=== PATIENT | male | born 1940 | race African-American/Black ===

== ENCOUNTER 2016-09-11 19:12 | Inpatient (IN) | payer MEDICARE, BC, OTHER ==
[2016-09-11] VITALS (144 sets, daily range): BP systolic 172; BP diastolic 77; PULSE 74; TEMP 97.1; O2SAT 89–97
[~2016-09-11] VITALS: Ht 172.7 cm; Wt 91.8 kg
[2016-09-11 19:46] LABS: BASO % 0.3 % (0.0-2.0); EOS # 0.1 (0.0-0.7); EOS % 1.9 % (0-4.0); GRAN # 4.8 (1.4-6.5); LYMPH # 1.7 (1.2-3.4); LYMPH % 22.7 % (20.0-51.0); MEAN CELL VOLUME 84 fl (80.0-100.0); MEAN CORPUSCULAR HGB CONC 32 g/dl (33.0-37.0); MEAN PLATELET VOLUME 11.3 fl (7.4-10.4); MONO # 0.7 (0.1-0.6); MONO % 9.1 % (1.7-9.3); PLATELET COUNT 190 K/mm3 (130-400); RED BLOOD COUNT 3.65 M/mm3 (4.20-5.60); REDCELL DISTRIBUTION WIDTH-CV 16.3 % (11.5-14.5); WHITE BLOOD COUNT 7.4 K/mm3 (4.8-10.8)
[2016-09-11 19:54] LABS: HEMATOCRIT 30.8 % (42.0-52.0); HEMOGLOBIN 9.9 g/dl (13.5-18.0); MEAN CORPUSCULAR HEMOGLOBIN 27 pg (27.0-31.0)
[2016-09-11 20:01] LABS: ADJUSTED CALCIUM 7.6 mg/dL (8.4-10.2); ALBUMIN 4.2 gm/dL (3.5-5.0); BILIRUBIN,TOTAL 0.7 mg/dL (0.0-1.0); CALCIUM 7.8 mg/dL (8.4-10.2); MAGNESIUM 1.6 mg/dL (1.6-2.3); PHOSPHOROUS 8.8 mg/dL (2.5-4.5); TOTAL PROTEIN 7.3 gm/dL (6.4-8.2)
[2016-09-11 20:05] LABS: POTASSIUM 6.2 mmol/L (3.4-5.0)
[2016-09-11 20:07] LABS: CREATININE, serum 15.01 mg/dL (0.66-1.25)
[2016-09-11] MEDS ORDERED: ZYLOPRIM 300MG300 MG PO (20:49)
[2016-09-11] MEDS ORDERED: ASPIRIN 32325 MG/TAB PO (20:50)
[2016-09-11] MEDS ORDERED: TENORMIN 5050 MG/TAB PO (20:50)
[2016-09-11] MEDS ORDERED: LIPITOR 40MG TA40 MG PO (20:51)
[2016-09-11] MEDS ORDERED: NEURONTIN100 MG/CAP PO (20:54)
[2016-09-11] MEDS ORDERED: LEVEMIR100 U/ML SQ (20:55)
[2016-09-11] MEDS ORDERED: LASIX 40MG TABL40 MG PO (20:56)
[2016-09-11] MEDS ORDERED: PROTONIX20 MG PO (20:56)
[2016-09-11] MEDS ORDERED: MINOXIDIL 2.5 PO (20:56)
[2016-09-11] MEDS ORDERED: PLAVIX 75MG TAB75 MG PO (20:57)
[2016-09-11] MEDS ORDERED: SENSIPAR60 MG PO (20:57)
[2016-09-12] VITALS (95 sets, daily range): BP systolic 109–143; BP diastolic 50–60; PULSE 62–72; TEMP 97–98.7; O2SAT 94–98
[2016-09-12 08:15] LABS: BASO % 0.4 % (0.0-2.0); EOS # 0.2 (0.0-0.7); EOS % 3.3 % (0-4.0); GRAN # 3.2 (1.4-6.5); GRAN % 61.7 % (42.2-75.2); LYMPH # 1.2 (1.2-3.4); LYMPH % 23.3 % (20.0-51.0); MEAN CELL VOLUME 86 fl (80.0-100.0); MEAN CORPUSCULAR HGB CONC 31 g/dl (33.0-37.0); MEAN PLATELET VOLUME 10.2 fl (7.4-10.4); MONO # 0.6 (0.1-0.6); MONO % 10.7 % (1.7-9.3); PLATELET COUNT 164 K/mm3 (130-400); RED BLOOD COUNT 3.68 M/mm3 (4.20-5.60); REDCELL DISTRIBUTION WIDTH-CV 16.6 % (11.5-14.5); WHITE BLOOD COUNT 5.2 K/mm3 (4.8-10.8)
[2016-09-12 08:24] LABS: CALCIUM 8.2 mg/dL (8.4-10.2); POTASSIUM 4.7 mmol/L (3.4-5.0)
[2016-09-12 08:26] LABS: HEMATOCRIT 31.7 % (42.0-52.0); HEMOGLOBIN 9.8 g/dl (13.5-18.0); MEAN CORPUSCULAR HEMOGLOBIN 27 pg (27.0-31.0)
[2016-09-12 08:35] LABS: CREATININE, serum 9.37 mg/dL (0.66-1.25)
== END 2016-09-12 13:30 | disposition home or self-care (01) | DRG 640 ==
LOC: COL.ER 19:12 → ICU 20:15 → MEDICAL 09-12 01:23
PROVIDERS: Emergency Medicine; Internal Medicine
PROC: 5A1D00Z (ICD-10-PCS; principal; 2016-09-11)
DX: E87.70 Fluid overload, unspecified (principal); N18.6 End stage renal disease; I12.0 Hypertensive chronic kidney disease with stage 5 chronic kidney disease or end stage renal disease; N25.81 Secondary hyperparathyroidism of renal origin; E87.5 Hyperkalemia; E11.22 Type 2 diabetes mellitus with diabetic chronic kidney disease; K21.9 Gastro-esophageal reflux disease without esophagitis; R19.7 Diarrhea, unspecified; Z99.2 Dependence on renal dialysis; Z79.4 Long term (current) use of insulin; Z87.891 Personal history of nicotine dependence; Z91.15 Patient's noncompliance with renal dialysis
CPT/HCPCS: J0610; J1644; J1815; J1940

== ENCOUNTER 2016-09-20 10:00 | Day surgery (SDC) | payer MEDICARE, OTHER ==
[~2016-09-20] VITALS: Ht 172.7 cm; Wt 88.6 kg
[2016-09-20] VITALS (12 sets, daily range): BP systolic 135–149; BP diastolic 56–73; PULSE 56–63
[~2016-09-20 10:00] MED LIST: ASPIRIN 32325 MG/TAB PO; LASIX 40MG TABL40 MG PO; LEVEMIR100 U/ML SQ; LIPITOR 40MG TA40 MG PO; MINOXIDIL 2.5 PO; NEURONTIN100 MG/CAP PO; PLAVIX 75MG TAB75 MG PO; PROTONIX20 MG PO; SENSIPAR60 MG PO; TENORMIN 5050 MG/TAB PO; ZYLOPRIM 300MG300 MG PO
[2016-09-20 10:34] LABS: MEAN CELL VOLUME 86 fl (80.0-100.0); MEAN CORPUSCULAR HGB CONC 31 g/dl (33.0-37.0); MEAN PLATELET VOLUME 10.4 fl (7.4-10.4); PLATELET COUNT 196 K/mm3 (130-400); RED BLOOD COUNT 4.08 M/mm3 (4.20-5.60); REDCELL DISTRIBUTION WIDTH-CV 16.2 % (11.5-14.5); WHITE BLOOD COUNT 8.9 K/mm3 (4.8-10.8)
[2016-09-20 10:38] LABS: HEMOGLOBIN 10.9 g/dl (13.5-18.0); MEAN CORPUSCULAR HEMOGLOBIN 27 pg (27.0-31.0)
[2016-09-20 10:44] LABS: PROTHROMBIN TIME 11.5 SECONDS (9.7-12.8)
[2016-09-20 10:45] LABS: CALCIUM 8.4 mg/dL (8.4-10.2); POTASSIUM 4.6 mmol/L (3.4-5.0)
[2016-09-20 10:49] LABS: CREATININE, serum 12.6 mg/dL (0.66-1.25)
[2016-09-20] MEDS ORDERED: LANTUS SOLOS100 U/ML SQ (11:59)
== END 2016-09-20 17:53 | disposition home or self-care (01) ==
LOC: COL.CAR 10:00
PROVIDERS: Internal Medicine Cardiovascular Disease
DX: I25.10 Atherosclerotic heart disease of native coronary artery without angina pectoris (principal); I27.2 Other secondary pulmonary hypertension; I08.3 Combined rheumatic disorders of mitral, aortic and tricuspid valves; Z99.2 Dependence on renal dialysis
CPT/HCPCS: C1725; C1760; J2250; J3010; Q9967

== ENCOUNTER 2016-09-20 22:38 | Emergency (ER) | payer MEDICARE, OTHER ==
[~2016-09-20] VITALS: Ht 172.7 cm; Wt 88.6 kg
[~2016-09-20 22:38] MED LIST changes: +LANTUS SOLOS100 U/ML SQ
[2016-09-20 22:48] VITALS: BP 129/69; TEMP 98.1
[2016-09-20 23:56] VITALS: PULSE 60
== END 2016-09-20 23:58 | disposition home or self-care (01) ==
LOC: COL.ER 22:38
DX: I97.610 Postprocedural hemorrhage of a circulatory system organ or structure following a cardiac catheterization (principal); E11.40 Type 2 diabetes mellitus with diabetic neuropathy, unspecified; I10 Essential (primary) hypertension; Z79.4 Long term (current) use of insulin; Z79.02 Long term (current) use of antithrombotics/antiplatelets; Z86.39 Personal history of other endocrine, nutritional and metabolic disease

== ENCOUNTER 2016-10-27 22:36 | Inpatient (IN) | payer MEDICARE, OTHER ==
[~2016-10-27] VITALS: Ht 172.7 cm; Wt 90.1 kg
[2016-10-27 23:25] LABS: BASO % 0.1 % (0.0-2.0); EOS # 0.2 (0.0-0.7); EOS % 1.9 % (0-4.0); GRAN # 5.4 (1.4-6.5); GRAN % 68.1 % (42.2-75.2); LYMPH # 1.5 (1.2-3.4); LYMPH % 19.5 % (20.0-51.0); MEAN CELL VOLUME 86 fl (80.0-100.0); MEAN CORPUSCULAR HGB CONC 31 g/dl (33.0-37.0); MEAN PLATELET VOLUME 10.3 fl (7.4-10.4); MONO # 0.8 (0.1-0.6); MONO % 9.6 % (1.7-9.3); PLATELET COUNT 183 K/mm3 (130-400); RED BLOOD COUNT 4.12 M/mm3 (4.20-5.60); REDCELL DISTRIBUTION WIDTH-CV 16.8 % (11.5-14.5); WHITE BLOOD COUNT 7.9 K/mm3 (4.8-10.8)
[2016-10-27 23:26] LABS: HEMATOCRIT 35.5 % (42.0-52.0); HEMOGLOBIN 11.1 g/dl (13.5-18.0); MEAN CORPUSCULAR HEMOGLOBIN 27 pg (27.0-31.0)
[2016-10-27 23:34] LABS: ADJUSTED CALCIUM 9.1 mg/dL (8.4-10.2); ALBUMIN 4.3 gm/dL (3.5-5.0); BILIRUBIN,TOTAL 0.5 mg/dL (0.0-1.0); CALCIUM 9.3 mg/dL (8.4-10.2); MAGNESIUM 1.9 mg/dL (1.6-2.3); PHOSPHOROUS 5.8 mg/dL (2.5-4.5); POTASSIUM 5.5 mmol/L (3.4-5.0); TOTAL PROTEIN 7.6 gm/dL (6.4-8.2)
[2016-10-27] MEDS ORDERED: NATURAL C500 MG PO (23:46)
[2016-10-27 23:48] LABS: CREATININE, serum 12.03 mg/dL (0.66-1.25); TROPONIN-I 0.035 ng/mL (0.000-0.034)
[2016-10-28 02:17] VITALS: BP 111/44; PULSE 59; TEMP 97.9
[2016-10-28 04:30] VITALS: BP 108/51; PULSE 50; TEMP 97.4
[2016-10-28 07:57] VITALS: BP 119/47; PULSE 52; TEMP 97.7
[2016-10-28 12:40] VITALS: BP 108/49; PULSE 53; TEMP 98.3
[2016-10-28 16:37] VITALS: BP 109/39; PULSE 42; TEMP 97.3
[2016-10-28 20:16] VITALS: BP 116/41; PULSE 54; TEMP 98
[2016-10-29 00:20] VITALS: BP 94/56; PULSE 57; TEMP 98.4
[2016-10-29 03:40] VITALS: BP 106/44; PULSE 55; TEMP 98.2
[2016-10-29 07:14] LABS: ALBUMIN 4.1 gm/dL (3.5-5.0); CALCIUM 8.6 mg/dL (8.4-10.2); PHOSPHOROUS 6.8 mg/dL (2.5-4.5)
[2016-10-29 07:15] LABS: CREATININE, serum 9.5 mg/dL (0.66-1.25)
[2016-10-29 07:16] LABS: POTASSIUM 5.8 mmol/L (3.4-5.0)
[2016-10-29 07:49] VITALS: BP 120/49; PULSE 54; TEMP 97.5
[2016-10-29 13:04] VITALS: BP 116/50; PULSE 51; TEMP 97.4
[2016-10-29 15:32] VITALS: BP 117/49; PULSE 118; TEMP 98
[2016-10-29 20:22] VITALS: BP 104/43; PULSE 52; TEMP 98.4
[2016-10-30 00:31] VITALS: BP 106/39; PULSE 70; TEMP 98.7
[2016-10-30 04:25] VITALS: BP 105/40; PULSE 58; TEMP 98.1
[2016-10-30 07:42] LABS: ALBUMIN 3.9 gm/dL (3.5-5.0); CALCIUM 8.3 mg/dL (8.4-10.2); PHOSPHOROUS 6.5 mg/dL (2.5-4.5); POTASSIUM 5.5 mmol/L (3.4-5.0)
[2016-10-30 07:50] LABS: CREATININE, serum 8.79 mg/dL (0.66-1.25)
[2016-10-30 07:53] VITALS: BP 109/36; PULSE 57; TEMP 99.1
[2016-10-30 11:43] VITALS: BP 103/38; PULSE 51; TEMP 98.8
[2016-10-30 15:49] VITALS: BP 108/43; PULSE 55; TEMP 99.2
[2016-10-30 20:34] VITALS: BP 122/43; PULSE 55; TEMP 98.3
[2016-10-31 00:02] VITALS: BP 116/49; PULSE 55; TEMP 98.5
[2016-10-31 03:47] VITALS: BP 113/45; PULSE 59; TEMP 98.2
[2016-10-31 06:40] LABS: ALBUMIN 3.9 gm/dL (3.5-5.0); CALCIUM 7.9 mg/dL (8.4-10.2); PHOSPHOROUS 7.1 mg/dL (2.5-4.5)
[2016-10-31 06:54] LABS: CREATININE, serum 10.92 mg/dL (0.66-1.25); POTASSIUM 6.4 mmol/L (3.4-5.0)
[2016-10-31 07:21] VITALS: BP 103/45; PULSE 60; TEMP 98.3
[2016-10-31 12:33] VITALS: BP 114/43; PULSE 55; TEMP 98.3
== END 2016-10-31 13:15 | disposition home or self-care (01) | DRG 640 ==
LOC: COL.ER 22:36 → MEDICAL 10-28 00:29
PROVIDERS: Emergency Medicine; Internal Medicine Nephrology
PROC: 5A1D60Z (ICD-10-PCS; principal; 2016-10-28)
DX: E87.70 Fluid overload, unspecified (principal); N18.6 End stage renal disease; I12.0 Hypertensive chronic kidney disease with stage 5 chronic kidney disease or end stage renal disease; I20.9 Angina pectoris, unspecified; E87.5 Hyperkalemia; D63.1 Anemia in chronic kidney disease; E11.22 Type 2 diabetes mellitus with diabetic chronic kidney disease; Z99.2 Dependence on renal dialysis; I27.2 Other secondary pulmonary hypertension; Z79.4 Long term (current) use of insulin; Z87.891 Personal history of nicotine dependence
CPT/HCPCS: J0610; J1815; J1940

== ENCOUNTER 2016-11-23 14:11 | Emergency (ER) | payer MEDICARE, OTHER ==
[~2016-11-23] VITALS: Ht 172.7 cm; Wt 77.3 kg
[~2016-11-23 14:11] MED LIST changes: +NATURAL C500 MG PO
[2016-11-23 14:12] VITALS: BP 176/81; TEMP 97.8
[2016-11-23 15:10] VITALS: PULSE 68
== END 2016-11-23 15:10 | disposition home or self-care (01) ==
LOC: COL.ER 14:11
DX: S40.812A Abrasion of left upper arm, initial encounter (principal); E11.9 Type 2 diabetes mellitus without complications; I12.0 Hypertensive chronic kidney disease with stage 5 chronic kidney disease or end stage renal disease; N18.9 Chronic kidney disease, unspecified; Z99.2 Dependence on renal dialysis; Z79.82 Long term (current) use of aspirin; Z79.02 Long term (current) use of antithrombotics/antiplatelets; Z79.01 Long term (current) use of anticoagulants; X58.XXXA Exposure to other specified factors, initial encounter

== ENCOUNTER 2017-03-22 11:46 | Emergency (ER) | payer MEDICARE, OTHER ==
[~2017-03-22] VITALS: Ht 172.7 cm; Wt 78.2 kg
[2017-03-22 11:48] VITALS: TEMP 100.6
[2017-03-22] MEDS ORDERED: PHOS LO PO (12:21)
[2017-03-22 14:03] LABS: INFLUENZA A POSITIVE; INFLUENZA B NEGATIVE
[2017-03-22 14:06] LABS: BASO % 0.1 % (0.0-2.0); EOS % 0.3 % (0-4.0); GRAN # 5.2 (1.4-6.5); GRAN % 77.5 % (42.2-75.2); LYMPH # 0.5 (1.2-3.4); LYMPH % 6.7 % (20.0-51.0); MEAN CELL VOLUME 89 fl (80.0-100.0); MEAN CORPUSCULAR HGB CONC 32 g/dl (33.0-37.0); MEAN PLATELET VOLUME 11.3 fl (7.4-10.4); MONO % 15.1 % (1.7-9.3); PLATELET COUNT 171 K/mm3 (130-400); RED BLOOD COUNT 3.83 M/mm3 (4.20-5.60); WHITE BLOOD COUNT 6.7 K/mm3 (4.8-10.8)
[2017-03-22 14:07] LABS: HEMOGLOBIN 10.7 g/dl (13.5-18.0); MEAN CORPUSCULAR HEMOGLOBIN 28 pg (27.0-31.0)
[2017-03-22 15:04] LABS: ADJUSTED CALCIUM 8.5 mg/dL (8.4-10.2); BILIRUBIN,TOTAL 0.4 mg/dL (0.0-1.0); C-REACTIVE PROTEIN 1.6 mg/dL (0.0-0.9); CALCIUM 8.5 mg/dL (8.4-10.2); POTASSIUM 5.4 mmol/L (3.4-5.0); TOTAL PROTEIN 7.2 gm/dL (6.4-8.2)
[2017-03-22 15:13] LABS: TROPONIN-I 0.032 ng/mL (0.000-0.034)
[2017-03-22 15:15] LABS: CREATININE, serum 12.25 mg/dL (0.66-1.25)
[2017-03-22 16:30] VITALS: BP 124/75; PULSE 69
== END 2017-03-22 16:31 | disposition home or self-care (01) ==
LOC: COL.ER 11:46
PROVIDERS: Emergency Medicine
DX: J09.X2 Influenza due to identified novel influenza A virus with other respiratory manifestations (principal); E11.22 Type 2 diabetes mellitus with diabetic chronic kidney disease; I12.0 Hypertensive chronic kidney disease with stage 5 chronic kidney disease or end stage renal disease; N18.6 End stage renal disease; Z99.2 Dependence on renal dialysis; J44.9 Chronic obstructive pulmonary disease, unspecified; Z79.82 Long term (current) use of aspirin; Z79.02 Long term (current) use of antithrombotics/antiplatelets

== ENCOUNTER 2017-03-25 07:39 | Inpatient (IN) | payer MEDICARE, OTHER ==
[~2017-03-25] VITALS: Ht 172.7 cm; Wt 78.1 kg
[2017-03-25] VITALS (8 sets, daily range): BP systolic 117–127; BP diastolic 46–58; PULSE 69–72; TEMP 97.3–99.5; O2SAT 97–100
[~2017-03-25 07:39] MED LIST changes: +PHOS LO PO
[2017-03-25 08:43] LABS: BASO % 0.1 % (0.0-2.0); GRAN # 6.3 (1.4-6.5); GRAN % 76.3 % (42.2-75.2); LYMPH % 12.3 % (20.0-51.0); MEAN CELL VOLUME 88 fl (80.0-100.0); MEAN CORPUSCULAR HGB CONC 32 g/dl (33.0-37.0); MEAN PLATELET VOLUME 12.4 fl (7.4-10.4); MONO # 0.9 (0.1-0.6); MONO % 11.1 % (1.7-9.3); PLATELET COUNT 158 K/mm3 (130-400); RED BLOOD COUNT 3.88 M/mm3 (4.20-5.60); REDCELL DISTRIBUTION WIDTH-CV 14.7 % (11.5-14.5)
[2017-03-25 08:44] LABS: HEMATOCRIT 34.3 % (42.0-52.0); HEMOGLOBIN 10.8 g/dl (13.5-18.0); MEAN CORPUSCULAR HEMOGLOBIN 28 pg (27.0-31.0)
[2017-03-25 08:54] LABS: BILIRUBIN,TOTAL 0.4 mg/dL (0.0-1.0); CALCIUM 7.6 mg/dL (8.4-10.2); TOTAL PROTEIN 7.5 gm/dL (6.4-8.2)
[2017-03-25 08:58] LABS: POTASSIUM 6.4 mmol/L (3.4-5.0)
[2017-03-25 09:03] LABS: CREATININE, serum 17.92 mg/dL (0.66-1.25)
[2017-03-25 09:10] LABS: TROPONIN-I 0.063 ng/mL (0.000-0.034)
[2017-03-25] MEDS ORDERED: PHOS LO PO (11:01)
[2017-03-25] MEDS ORDERED: NEURONTIN100 MG/CAP PO (11:06)
[2017-03-25] MEDS ORDERED: ASPI325T6 PO (11:10)
[2017-03-25] MEDS ORDERED: VITAMIN C500 MG PO (11:17)
[2017-03-25 18:22] LABS: CALCIUM 8.2 mg/dL (8.4-10.2); POTASSIUM 4.7 mmol/L (3.4-5.0)
[2017-03-25 18:23] LABS: CREATININE, serum 10.68 mg/dL (0.66-1.25)
[2017-03-26 03:55] VITALS: BP 109/41; PULSE 78; TEMP 101.2
[2017-03-26 07:08] LABS: GRAN # 4.3 (1.4-6.5); LYMPH # 0.8 (1.2-3.4); LYMPH % 14.1 % (20.0-51.0); MEAN CELL VOLUME 88 fl (80.0-100.0); MEAN CORPUSCULAR HGB CONC 31 g/dl (33.0-37.0); MEAN PLATELET VOLUME 12.5 fl (7.4-10.4); MONO # 0.5 (0.1-0.6); MONO % 8.7 % (1.7-9.3); PLATELET COUNT 128 K/mm3 (130-400); RED BLOOD COUNT 3.52 M/mm3 (4.20-5.60); REDCELL DISTRIBUTION WIDTH-CV 14.7 % (11.5-14.5)
[2017-03-26 07:11] LABS: HEMOGLOBIN 9.7 g/dl (13.5-18.0); MEAN CORPUSCULAR HEMOGLOBIN 28 pg (27.0-31.0)
[2017-03-26 07:23] LABS: CALCIUM 8.3 mg/dL (8.4-10.2); MAGNESIUM 1.7 mg/dL (1.6-2.3); POTASSIUM 5.2 mmol/L (3.4-5.0)
[2017-03-26 07:27] LABS: CREATININE, serum 11.79 mg/dL (0.66-1.25)
[2017-03-26 07:30] LABS: TROPONIN-I 0.056 ng/mL (0.000-0.034)
[2017-03-26 09:07] VITALS: BP 116/51; PULSE 69; TEMP 99.2
[2017-03-26 12:31] VITALS: BP 128/53; PULSE 68; TEMP 98.3
[2017-03-26 15:59] VITALS: BP 107/53; PULSE 72; TEMP 99.1
[2017-03-26 20:04] VITALS: BP 121/52; PULSE 73; TEMP 99.2
[2017-03-27 00:03] VITALS: BP 102/38; PULSE 70; TEMP 98.8
[2017-03-27 03:13] VITALS: BP 110/46; PULSE 70; TEMP 98.4
[2017-03-27 07:46] VITALS: BP 116/46; PULSE 66; TEMP 98.7
[2017-03-27 10:38] LABS: ALBUMIN 3.6 gm/dL (3.5-5.0); PHOSPHOROUS 7.2 mg/dL (2.5-4.5); POTASSIUM 5.3 mmol/L (3.4-5.0)
[2017-03-27 10:45] LABS: CREATININE, serum 14.52 mg/dL (0.66-1.25)
[2017-03-27 12:32] VITALS: BP 136/60; PULSE 67; TEMP 99.2
[2017-03-27 16:30] VITALS: BP 136/52; PULSE 77; TEMP 98.9
[2017-03-27 20:21] VITALS: BP 135/55; PULSE 82; TEMP 99.5
[2017-03-28 00:07] VITALS: BP 149/62; PULSE 80; TEMP 98.2
[2017-03-28 04:56] VITALS: BP 119/57; PULSE 76; TEMP 98.5
[2017-03-28 09:20] VITALS: BP 126/47; PULSE 76; TEMP 99.2
== END 2017-03-28 12:00 | disposition home or self-care (01) | DRG 865 ==
LOC: COL.ER 07:39 → ICU 09:05 → MEDICAL 09:05
PROVIDERS: Emergency Medicine; Internal Medicine; Nurse Practitioner Family
PROC: 5A1D70Z Performance of Urinary Filtration, Intermittent, Less than 6 Hours Per Day (ICD-10-PCS; principal; 2017-03-25)
PROC: 5A1D70Z Performance of Urinary Filtration, Intermittent, Less than 6 Hours Per Day (ICD-10-PCS; 2017-03-27)
DX: J10.2 Influenza due to other identified influenza virus with gastrointestinal manifestations (principal); N18.6 End stage renal disease; J96.21 Acute and chronic respiratory failure with hypoxia; R65.11 Systemic inflammatory response syndrome (SIRS) of non-infectious origin with acute organ dysfunction; I13.2 Hypertensive heart and chronic kidney disease with heart failure and with stage 5 chronic kidney disease, or end stage renal disease; I50.32 Chronic diastolic (congestive) heart failure; N25.81 Secondary hyperparathyroidism of renal origin; J10.1 Influenza due to other identified influenza virus with other respiratory manifestations; E11.22 Type 2 diabetes mellitus with diabetic chronic kidney disease; Z99.2 Dependence on renal dialysis; I27.20 Pulmonary hypertension, unspecified; E11.42 Type 2 diabetes mellitus with diabetic polyneuropathy; Z87.891 Personal history of nicotine dependence; I34.0 Nonrheumatic mitral (valve) insufficiency
CPT/HCPCS: 99223-AI; 99232-AI; 99233-AI; 99239; J0604; J1644; J1815; J2405

== ENCOUNTER → 2017-04-07 | Outpatient (CLI) | payer MEDICARE, OTHER ==
[~2017-04-07] MED LIST changes: +ASPI325T6 PO; +VITAMIN C500 MG PO
== END ==
LOC: COL.VAS 09:00
DX: I65.23 Occlusion and stenosis of bilateral carotid arteries (principal); H35.60 Retinal hemorrhage, unspecified eye; E11.39 Type 2 diabetes mellitus with other diabetic ophthalmic complication

== ENCOUNTER → 2017-12-06 | Outpatient (CLI) | payer MEDICARE, OTHER | LOC: COL.VAS 14:51 | DX: M70.22 Olecranon bursitis, left elbow (principal); R60.0 Localized edema; I77.0 Arteriovenous fistula, acquired ==

== ENCOUNTER → 2018-01-03 | Outpatient (CLI) | payer MEDICARE, OTHER ==
[~2018-01-03] VITALS: Ht 172.7 cm; Wt 85.2 kg
[~2018-01-03] MED LIST changes: +ASPIRIN E.C. 8181 MG PO; +MINOXIDIL 10 PO; +NORVASC 10MG10 MG PO; +RENVELA800 MG PO; +TENORMIN100 MG PO; +TRELEGY ELLIPT1 EACH IH
[2018-01-03 10:53] VITALS: BP 170/81; PULSE 58
[2018-01-03 12:15] VITALS: BP 166/79; PULSE 60
[2018-01-03 12:22] VITALS: BP 138/63; PULSE 79
[2018-01-03 12:23] VITALS: BP 142/68; PULSE 78
[2018-01-03 12:25] VITALS: BP 136/62; PULSE 62
== END ==
LOC: COL.CARD 10:37
DX: I25.10 Atherosclerotic heart disease of native coronary artery without angina pectoris (principal); I25.41 Coronary artery aneurysm; I13.2 Hypertensive heart and chronic kidney disease with heart failure and with stage 5 chronic kidney disease, or end stage renal disease; E11.22 Type 2 diabetes mellitus with diabetic chronic kidney disease; N18.6 End stage renal disease; I50.32 Chronic diastolic (congestive) heart failure; I08.1 Rheumatic disorders of both mitral and tricuspid valves; I27.20 Pulmonary hypertension, unspecified; N40.0 Benign prostatic hyperplasia without lower urinary tract symptoms; J44.9 Chronic obstructive pulmonary disease, unspecified; M10.9 Gout, unspecified; N52.9 Male erectile dysfunction, unspecified; I42.8 Other cardiomyopathies; E78.2 Mixed hyperlipidemia; E66.9 Obesity, unspecified; Z68.27 Body mass index [BMI] 27.0-27.9, adult; Z99.2 Dependence on renal dialysis; Z79.82 Long term (current) use of aspirin; Z87.891 Personal history of nicotine dependence; Z83.3 Family history of diabetes mellitus; Z82.49 Family history of ischemic heart disease and other diseases of the circulatory system; Z82.3 Family history of stroke
CPT/HCPCS: A9502; J2785

== ENCOUNTER 2018-04-02 10:53 | Inpatient (IN) | payer MEDICARE, OTHER ==
[2018-04-02] VITALS (392 sets, daily range): BP systolic 66–155; BP diastolic 27–72; PULSE 68–107; TEMP 98.3–101.7; O2SAT 80–100
[~2018-04-02] VITALS: Ht 172.7 cm; Wt 72.3 kg
[2018-04-02 12:02] LABS: HEMOGLOBIN 11.5 g/dl (13.5-18.0); MEAN CELL VOLUME 91 fl (80.0-100.0); MEAN CORPUSCULAR HEMOGLOBIN 28 pg (27.0-31.0); MEAN CORPUSCULAR HGB CONC 31 g/dl (33.0-37.0); MEAN PLATELET VOLUME 11.4 fl (7.4-10.4); PLATELET COUNT 202 K/mm3 (130-400); RED BLOOD COUNT 4.07 M/mm3 (4.20-5.60); REDCELL DISTRIBUTION WIDTH-CV 16.5 % (11.5-14.5)
[2018-04-02 12:11] LABS: ALBUMIN 3.5 gm/dL (3.5-5.0); BILIRUBIN,TOTAL 0.8 mg/dL (0.0-1.0); CALCIUM 9.1 mg/dL (8.4-10.2); MAGNESIUM 1.5 mg/dL (1.6-2.3); PHOSPHOROUS 3.3 mg/dL (2.5-4.5); POTASSIUM 5.2 mmol/L (3.4-5.0); TOTAL PROTEIN 6.9 gm/dL (6.4-8.2)
[2018-04-02 12:18] LABS: CREATININE, serum 10.54 mg/dL (0.66-1.25)
[2018-04-02 12:24] LABS: TROPONIN-I 0.057 ng/mL (0.000-0.034)
[2018-04-02] MEDS ORDERED: PHOS LO (13:40)
[2018-04-02] MEDS ORDERED: LIPITOR 40MG TA40 MG PO (13:41)
[2018-04-02] MEDS ORDERED: PRINIVIL10 MG PO (13:42)
--- NOTE | 2018-04-02 13:57 | NUR ---
PT INTUBATED WITH A #8.0 OETT SECURED 27CM@ LIP BY DR. ORTEGA. CONSISTANT COLOR CHANGE ON CO2 DETECTOR, BILATERAL BREATH SOUNDS AUSCULTATED AND ABSENCE OF SOUNDS OVER STOMACH AND CORDS WERE VISUALIZED BY DR. ORTEGA ON GLIDASCOPE MONITOR. PT PLACED ON VENTILATOR ON SETTINGS ORDERED BY DR. ORTEGA AT BEDSIDE. ALARMS SET/FUNCTIONING. CXR AND ABG PENDING.
[2018-04-02 14:06] LABS: ANISOCYTOSIS 1+; BAND 40 % (0-10); LYMPHOCYTE 10 % (20.0-51.0); NEUTROPHILS 46 % (42.0-75.2); PLATELET ESTIMATE NORMAL (NORMAL); TOXIC GRANULATION PRESENT
--- NOTE | 2018-04-02 14:10 | NUR ---
VT DECREASED TO 400 AND PEEP DECREASED TO +4 FOR APPROXIMATELY 5 MIN DURING WHICH TIME DR. ORTEGA WAS ATTEMPTING TO PLACE CENTRAL LINE. PT THEN PLACED BACK ON PREVIOUSLY DOCUMENTED SETTINGS.
--- NOTE | 2018-04-02 14:56 | NUR ---
1340 DR. ORTEGA AT BEDSIDE TO INTUBATE PATIENT. DAUGHTER AND PATIENT WERE TALKED TO AND PLAN OF CARE DISCUSSED. ALL QUESTIONS WERE ANSWERED 1359 8.0 ET TUBE PLACED. TOTAL OF 50 MG OF PROPOFOL WAS GIVEN, 10 MG ETOMIDATE, AND 10 MG OF VECUROMIUM. PATIENT WAS PLACED ON A LEVOPHED DRIP AND AN ADDITIONAL 250 ML NS FLUID BOLUS WAS GIVEN.
--- NOTE | 2018-04-02 14:58 | NUR ---
DR. ORTEGA ATTEMPTED A CENTRAL LINE PLACEMENT HOWEVER HE WAS NOT SUCCESSFUL. DR. GUARDADO NOTIFIED.
[2018-04-02 15:51] LABS: ARTERIAL BLD GAS O2 SATURATION 82.3 % (92-100); ARTERIAL BLD GAS TCO2 CT 29.3; ARTERIAL BLOOD GAS BASE EXCESS 3.8 (-2-2); ARTERIAL BLOOD GAS PCO2 40.9 mmHg (35-45); ARTERIAL BLOOD GAS pH 7.45 (7.35-7.45)
[2018-04-02 15:53] LABS: ARTERIAL BLOOD GAS PO2 44.2 mmHg (80-100)
[2018-04-02 16:14] LABS: HEMOGLOBIN 10.4 g/dl (13.5-18.0); MEAN CELL VOLUME 91 fl (80.0-100.0); MEAN CORPUSCULAR HEMOGLOBIN 29 pg (27.0-31.0); MEAN CORPUSCULAR HGB CONC 32 g/dl (33.0-37.0); MEAN PLATELET VOLUME 11.3 fl (7.4-10.4); PLATELET COUNT 240 K/mm3 (130-400); REDCELL DISTRIBUTION WIDTH-CV 16.3 % (11.5-14.5)
[2018-04-02 16:29] LABS: C-REACTIVE PROTEIN 7.4 mg/dL (0.0-0.9); CALCIUM 8.5 mg/dL (8.4-10.2); POTASSIUM 4.3 mmol/L (3.4-5.0)
[2018-04-02 16:30] LABS: HEMATOCRIT 32.8 % (42.0-52.0)
[2018-04-02 16:34] LABS: ANISOCYTOSIS 2+; BAND 31 % (0-10); EOSINOPHIL 3 % (0-4); LYMPHOCYTE 2 % (20.0-51.0); METAMYELOCYTE 2 % (0-0); NEUTROPHILS 52 % (42.0-75.2); NUCLEATED RED BLOOD CELL 1 (0-6); PLATELET ESTIMATE NORMAL (NORMAL); POIKILOCYTOSIS 1+
[2018-04-02 16:36] LABS: TOXIC GRANULATION PRESENT
[2018-04-02 16:38] LABS: CREATININE, serum 10.95 mg/dL (0.66-1.25)
--- NOTE | 2018-04-02 16:50 | NUR ---
WOLF WITH ANESTHESIA AT BEDSIDE TO PLACE ARTERIAL LINE.
--- NOTE | 2018-04-02 17:00 | NUR ---
SEDATION VACATION NOT DONE DUE TO PATIENT JUST BEING INTUBATED
[2018-04-02 17:30] LABS: ARTERIAL BLD GAS O2 SATURATION 93.4 % (92-100); ARTERIAL BLD GAS TCO2 CT 26.6; ARTERIAL BLOOD GAS BASE EXCESS -0.7 (-2-2); ARTERIAL BLOOD GAS HCO3 25.2 meq/L (22-26); ARTERIAL BLOOD GAS PCO2 46.8 mmHg (35-45); ARTERIAL BLOOD GAS PO2 76.1 mmHg (80-100); ARTERIAL BLOOD GAS pH 7.35 (7.35-7.45)
--- NOTE | 2018-04-02 19:30 | NUR ---
Bedside report received from KANDIS Robert. Patient care transfered. Patient sedated on ventilator. Family at bedside, all questions and concerns addressed at this time.
--- NOTE | 2018-04-02 19:30 | NUR ---
REPORT GIVEN TO KANDIS COHEN
--- NOTE | 2018-04-02 20:23 | NUR ---
Update Dr. Barahona via telephone regarding patient status. Received order to give 2 gm magnesium for mag of 1.5. Also received PRN order to bolus 500 ml NS if CVP still below 8. Currently at 15. will hold off on bolus.
[2018-04-02 22:24] LABS: COLLECTION METHOD CLEAN CATCH
[2018-04-02 22:29] LABS: MUCOUS Present /lpf; PH 8 (5-8); SQUAMOUS EPITHELIAL None Seen /hpf; URINE APPEARANCE Cloudy; URINE BACTERIA None Seen /hpf; URINE BILIRUBIN Negative (NEGATIVE); URINE BLOOD 2+ (NEGATIVE); URINE COLOR Yellow; URINE GLUCOSE Negative (NEGATIVE); URINE KETONE Negative (NEGATIVE); URINE LEUKOCYTE ESTERASE Negative (NEGATIVE); URINE NITRATE Negative (NEGATIVE); URINE PROTEIN(semi-quant) 2+ (NEGATIVE); URINE RBC 20-50 /hpf; URINE UROBILINOGEN Negative (NEGATIVE)
[2018-04-03] VITALS (766 sets, daily range): BP systolic 80–145; BP diastolic 40–70; PULSE 66–87; TEMP 97.3–99; O2SAT 72–100
--- NOTE | 2018-04-03 | NUR ---
Patient continues to be dependent on Levophed. BP is maintained on the drip but drops very quickly if drip is stopped for even a few seconds. Staff very carefull to not let drip run dry.
--- NOTE | 2018-04-03 | NUR ---
Urine in haywood catheter noted to be ludwig red. Catheter flushed with 10 ml of NS. Urine cleared up with flush. Will continue to monitor.
--- NOTE | 2018-04-03 02:45 | NUR ---
Called [facility] regarding patient elevated blood glucose with no insulin coverage. Received order to start moderate sliding scale insulin.
--- NOTE | 2018-04-03 04:30 | NUR ---
Bedbath provided. Patient opened eyes to speech and was able to squeeze this nurses hands on command and respond to simple yes or no questions appropriately. Will continue to monitor.
[2018-04-03 05:16] LABS: ARTERIAL BLD GAS O2 SATURATION 96.3 % (92-100); ARTERIAL BLD GAS TCO2 CT 23.7; ARTERIAL BLOOD GAS BASE EXCESS -7.3 (-2-2); ARTERIAL BLOOD GAS HCO3 21.8 meq/L (22-26); ARTERIAL BLOOD GAS PCO2 62.5 mmHg (35-45)
[2018-04-03 05:17] LABS: ARTERIAL BLOOD GAS pH 7.16 (7.35-7.45)
[2018-04-03 06:13] LABS: HEMOGLOBIN 10.1 g/dl (13.5-18.0); MEAN CELL VOLUME 93 fl (80.0-100.0); MEAN CORPUSCULAR HEMOGLOBIN 28 pg (27.0-31.0); MEAN CORPUSCULAR HGB CONC 30 g/dl (33.0-37.0); MEAN PLATELET VOLUME 10.8 fl (7.4-10.4); PLATELET COUNT 220 K/mm3 (130-400); RED BLOOD COUNT 3.61 M/mm3 (4.20-5.60); REDCELL DISTRIBUTION WIDTH-CV 16.5 % (11.5-14.5)
[2018-04-03 06:25] LABS: MAGNESIUM 2.1 mg/dL (1.6-2.3); PHOSPHOROUS 7.8 mg/dL (2.5-4.5); POTASSIUM 5.3 mmol/L (3.4-5.0)
[2018-04-03 06:43] LABS: CREATININE, serum 11.14 mg/dL (0.66-1.25); HEMATOCRIT 33.4 % (42.0-52.0)
--- NOTE | 2018-04-03 07:20 | NUR ---
Bedside report received from KANDIS He.
[2018-04-03 07:29] LABS: ANISOCYTOSIS 1+; BAND 49 % (0-10); LYMPHOCYTE 3 % (20.0-51.0); METAMYELOCYTE 2 % (0-0); NEUTROPHILS 45 % (42.0-75.2); PLATELET ESTIMATE NORMAL (NORMAL)
--- NOTE | 2018-04-03 07:42 | NUR ---
Vasopressin gtt decreased to 0.04 units=12ml/hr, and increased levophed gtt to 0.5mcg/kg/min=76.9ml/hr, we did DOUBLE STRENGTH the levophed at this time.
--- NOTE | 2018-04-03 08:00 | NUR ---
instructional technology specialist in room for ECHO.
--- NOTE | 2018-04-03 08:13 | NUR ---
Dr. Barahona speaks with family at this time.
[2018-04-03 08:27] LABS: ARTERIAL BLD GAS O2 SATURATION 95.4 % (92-100); ARTERIAL BLD GAS TCO2 CT 20.3; ARTERIAL BLOOD GAS BASE EXCESS -6.9 (-2-2); ARTERIAL BLOOD GAS HCO3 19.1 meq/L (22-26); ARTERIAL BLOOD GAS PCO2 40.2 mmHg (35-45); ARTERIAL BLOOD GAS PO2 85.9 mmHg (80-100)
--- NOTE | 2018-04-03 09:50 | NUR ---
Insulin gtt initiated at 5 units/hr, verified by KANDIS Stewart.
--- NOTE | 2018-04-03 11:00 | NUR ---
Insulin gtt increased to 6 units/hr, verified by KANDIS Stewart.
--- NOTE | 2018-04-03 11:15 | NUR ---
Dr. Barahona talks to family.
--- NOTE | 2018-04-03 12:00 | NUR ---
Insulin gtt increased to 7 units/hr, verified by KANDIS Gamez.
--- NOTE | 2018-04-03 12:48 | NUR ---
Watch sent home with daughter Temitope.
--- NOTE | 2018-04-03 14:00 | NUR ---
Insulin gtt decreased to 6 units/hr, verified by Yessenia.
--- NOTE | 2018-04-03 15:07 | NUR ---
Insulin gtt decreased to 3 units/hr, verified by KANDIS Stewart.
--- NOTE | 2018-04-03 16:00 | NUR ---
Insulin gtt decrease 1 unit/hr, verified by KANDIS Stewart.
--- NOTE | 2018-04-03 19:38 | NUR ---
Bedside report given to KANDIS Alonzo.
--- NOTE | 2018-04-03 20:00 | NUR ---
Shift assessment complete at this time. Plan of care reviewed with family. Additional time taken to address any other needs or concerns. Vitals stable. Pt does not appear to be having any pain or discomfort and is able to communicate with nods/gestures on ventilator. Will continue to monitor.
[2018-04-03 21:49] LABS: CALCIUM 7.9 mg/dL (8.4-10.2); MAGNESIUM 1.9 mg/dL (1.6-2.3); PHOSPHOROUS 8.3 mg/dL (2.5-4.5); POTASSIUM 4.6 mmol/L (3.4-5.0)
[2018-04-03 21:50] LABS: CREATININE, serum 11.2 mg/dL (0.66-1.25)
[2018-04-04] VITALS (797 sets, daily range): BP systolic 70–158; BP diastolic 49–89; PULSE 66–80; TEMP 97–98.8; O2SAT 95–100
--- NOTE | 2018-04-04 | NUR ---
Shift reassessment complete at this time. No changes from previous assessment. Vitals stable. Will continue to monitor.
--- NOTE | 2018-04-04 02:20 | NUR ---
Arterial line removed r/t failure of line. No complications during removal.
--- NOTE | 2018-04-04 04:00 | NUR ---
Shift reassessment complete at this time. No changes from previous assessment. Vitals stable. Will continue to monitor.
--- NOTE | 2018-04-04 05:00 | NUR ---
Pt calm et responsive on current level of sedation. No smart care cpap trial r/t high level of FiO2.
[2018-04-04 05:10] LABS: ARTERIAL BLD GAS O2 SATURATION 96.8 % (92-100); ARTERIAL BLD GAS TCO2 CT 18.9; ARTERIAL BLOOD GAS BASE EXCESS -8.1 (-2-2); ARTERIAL BLOOD GAS HCO3 17.7 meq/L (22-26); ARTERIAL BLOOD GAS PCO2 37.3 mmHg (35-45); ARTERIAL BLOOD GAS PO2 110.2 mmHg (80-100)
[2018-04-04 05:25] LABS: BASO # 0.1 (0.0-0.2); BASO % 0.3 % (0.0-2.0); GRAN # 17.7 (1.4-6.5); GRAN % 79.4 % (42.2-75.2); LYMPH # 0.3 (1.2-3.4); LYMPH % 1.5 % (20.0-51.0); MEAN CORPUSCULAR HGB CONC 33 g/dl (33.0-37.0); MEAN PLATELET VOLUME 10.1 fl (7.4-10.4); MONO # 0.6 (0.1-0.6); MONO % 2.6 % (1.7-9.3); PLATELET COUNT 162 K/mm3 (130-400); RED BLOOD COUNT 3.39 M/mm3 (4.20-5.60); REDCELL DISTRIBUTION WIDTH-CV 16.2 % (11.5-14.5)
[2018-04-04 05:48] LABS: CALCIUM 7.7 mg/dL (8.4-10.2); POTASSIUM 4.5 mmol/L (3.4-5.0)
[2018-04-04 05:58] LABS: CREATININE, serum 11.16 mg/dL (0.66-1.25); PHOSPHOROUS 9.3 mg/dL (2.5-4.5)
[2018-04-04 05:59] LABS: TROPONIN-I 0.213 ng/mL (0.000-0.034)
[2018-04-04 06:01] LABS: HEMATOCRIT 29.4 % (42.0-52.0); HEMOGLOBIN 9.6 g/dl (13.5-18.0); MEAN CELL VOLUME 87 fl (80.0-100.0); MEAN CORPUSCULAR HEMOGLOBIN 28 pg (27.0-31.0)
--- NOTE | 2018-04-04 07:00 | NUR ---
Bedside report received from KANDIS Alonzo. all Vent setttings, lines, tubes, iv gtts reviewed together. Patient repositioned at this time.
[2018-04-04 07:11] LABS: BAND 13 % (0-10); LYMPHOCYTE 3 % (20.0-51.0); METAMYELOCYTE 2 % (0-0); NEUTROPHILS 80 % (42.0-75.2); NUCLEATED RED BLOOD CELL 2 (0-6)
[2018-04-04 07:12] LABS: BURR CELLS 1+; PLATELET ESTIMATE DECREASED (NORMAL); POLYCHROMASIA 1+; SCHISTOCYTES 1+; TARGET CELLS 1+
[2018-04-04 07:13] LABS: DOHLE BODIES PRESENT
--- NOTE | 2018-04-04 07:37 | NUR ---
Bedside report given to KANDIS Castañeda.
--- NOTE | 2018-04-04 08:52 | NUR ---
Plan is dependent on patients progress in care. SW met with four daughters in room with pt. Daughter Eliza reports that pt has a at home Lara "Eloise" , Emergency contact is Eliza at [phone] and Seconday EMR contact is Temitope . PT is reported to use O2 at home and Cpap at night. No other DME reported. Patient was reported to be independent in daily activities prior to this stay and still working. Family reports PCP at Dr. Liao and the use of [facility] for RX. Family does not have a POA and reports that the decision is left to Eliza. No formal paperwork on file. There is also a son that they are waiting on to come in for decision purposes. SW will follow care for DC plan. Possible SNF.
--- NOTE | 2018-04-04 10:00 | NUR ---
Dr. Barahona has rounded, Dr. Lay rounds at this time and Dr. Dai rounds at this time. Orders received.
--- NOTE | 2018-04-04 12:00 | NUR ---
Have been able to wean patient down on levophed through the morning. He is tolerating it well. Will continue to attempts levophed decreases as blood pressure allows. CHEERLEADING COACH has been weaning down FiO2 to 50% as well. Family have all been updated on plan of care. will continue to monitor
--- NOTE | 2018-04-04 14:00 | NUR ---
RECEIVED PHONE CALL FROM LAB ([facility]) WITH REPORT OF POSITIVE MRSA SWAB RESULTS. PATIENT PLACED IN CONTACT PRECAUTIONS.
--- NOTE | 2018-04-04 15:00 | NUR ---
Patient continues to do well this afternoon. This RN and MUTUEL CLERK continue to attempt to wean Vent settings and Levophed. Will continue to monitor.
--- NOTE | 2018-04-04 17:00 | NUR ---
Dr. Dai rounds again at this time. Update given. He states that we may attempts Hemodialysis tomorrow, but he wants to evaluate patient tomorrow morning prior to making a final decision.
[2018-04-04 19:24] LABS: CALCIUM 7.5 mg/dL (8.4-10.2); MAGNESIUM 1.9 mg/dL (1.6-2.3); POTASSIUM 4.3 mmol/L (3.4-5.0)
[2018-04-04 19:30] LABS: ARTERIAL BLD GAS O2 SATURATION 96.1 % (92-100); ARTERIAL BLD GAS TCO2 CT 21.2; ARTERIAL BLOOD GAS BASE EXCESS -3.2 (-2-2); ARTERIAL BLOOD GAS HCO3 20.3 meq/L (22-26); ARTERIAL BLOOD GAS PCO2 30.5 mmHg (35-45); ARTERIAL BLOOD GAS PO2 95.2 mmHg (80-100); ARTERIAL BLOOD GAS pH 7.44 (7.35-7.45)
[2018-04-04 19:31] LABS: CREATININE, serum 11.01 mg/dL (0.66-1.25)
--- NOTE | 2018-04-04 20:00 | NUR ---
PEDAL PULSES ONLY ABLE TO BE IDENTIFIED WITH DOPLER, DIFFICULT TO FIND BY PALPATION. PT RESPONDS TO VERBAL COMMANDS.
[2018-04-05] VITALS (780 sets, daily range): BP systolic 86–131; BP diastolic 53–70; PULSE 76–111; TEMP 98.1–98.8; O2SAT 88–100
[2018-04-05 05:09] LABS: ARTERIAL BLD GAS O2 SATURATION 91.6 % (92-100); ARTERIAL BLD GAS TCO2 CT 24.2; ARTERIAL BLOOD GAS BASE EXCESS -0.7 (-2-2); ARTERIAL BLOOD GAS HCO3 23.2 meq/L (22-26); ARTERIAL BLOOD GAS PCO2 34.8 mmHg (35-45); ARTERIAL BLOOD GAS PO2 68.9 mmHg (80-100); ARTERIAL BLOOD GAS pH 7.44 (7.35-7.45)
--- NOTE | 2018-04-05 05:09 | NUR ---
SEDATION VACATION NOT ATTEMPTED DUE TO PT RESTLESS THE PAST 45 ON PROPOFOL AND THROUGHOUT NIGHT EASILY AROUSABLE WITH SEDATION.
[2018-04-05 05:35] LABS: MEAN CORPUSCULAR HGB CONC 35 g/dl (33.0-37.0); MEAN PLATELET VOLUME 11.1 fl (7.4-10.4); PLATELET COUNT 128 K/mm3 (130-400); RED BLOOD COUNT 2.81 M/mm3 (4.20-5.60); REDCELL DISTRIBUTION WIDTH-CV 15.3 % (11.5-14.5)
[2018-04-05 05:37] LABS: HEMATOCRIT 22.9 % (42.0-52.0); HEMOGLOBIN 8.1 g/dl (13.5-18.0); MEAN CELL VOLUME 82 fl (80.0-100.0); MEAN CORPUSCULAR HEMOGLOBIN 29 pg (27.0-31.0)
[2018-04-05 05:51] LABS: CALCIUM 7.6 mg/dL (8.4-10.2); MAGNESIUM 2.1 mg/dL (1.6-2.3); PHOSPHOROUS 7.7 mg/dL (2.5-4.5); POTASSIUM 3.8 mmol/L (3.4-5.0)
[2018-04-05 06:00] LABS: CREATININE, serum 11.45 mg/dL (0.66-1.25)
[2018-04-05 07:43] LABS: BAND 5 % (0-10); MYELOCYTE 1 % (0-0); NEUTROPHILS 92 % (42.0-75.2); NUCLEATED RED BLOOD CELL 1 (0-6)
[2018-04-05 07:44] LABS: ANISOCYTOSIS 1+; DOHLE BODIES PRESENT; PLATELET ESTIMATE DECREASED (NORMAL); POLYCHROMASIA 1+; TARGET CELLS 2+
[2018-04-05 07:45] LABS: SCHISTOCYTES 1+
--- NOTE | 2018-04-05 08:45 | NUR ---
DR. SANCHEZ AT BEDSIDE FOR ROUNDS.
--- NOTE | 2018-04-05 14:57 | NUR ---
RECEIVED REPORT FROM KANDIS GRUBER. LINES AND MEDICATIONS REVIEWD AT BEDSIDE.
--- NOTE | 2018-04-05 19:21 | NUR ---
REPORT GIVEN AT BEDSIDE TO KANDIS PALOMARES. LINES AND MEDICATIONS REVIEWED AT BEDSIDE.
--- NOTE | 2018-04-05 19:30 | NUR ---
Bedside report received from KANDIS Pelayo and KANDIS Drew. All lines and medications reviewed. Transfer of care at this time.
--- NOTE | 2018-04-05 20:00 | NUR ---
Assessment complete at this time. Patient appears to be resting comfortably on the ventilator. Able to follow commands and nods head when asked questions or being told information. Patient nods head when asked if he is comfortable. VSS. Patient is having some rust colored sputum when suctioned, but in small amounts. Bowel sounds are noted to be audible in all quadrants. Patient has no further needs at this time. Will continue to monitor. Call light within reach.
--- NOTE | 2018-04-05 20:15 | NUR ---
Dr. Dai at the bedside at this time to check on patient status. Let him know that levophed will be attempted to wean tonight as long as pressures hold. Dr. Dai states that dialysis will not likely be needed tomorrow unless something is indicated in morning labwork. Will plan for dialysis on Tuesday.
[2018-04-06] VITALS (872 sets, daily range): BP systolic 100–127; BP diastolic 50–67; PULSE 75–85; TEMP 97.5–98.3; O2SAT 89–100
--- NOTE | 2018-04-06 | NUR ---
Assessment complete at this time. Patient's OG tube has slipped out slightly to 61inches. Reinforced tape, confirmed placement of tube. Patient has had multiple bowel movements and has been given a bath. Patient's sputum has now turned bloody and bright red, no longer rust colored, but still in small amounts. Patient's residuals have increased greatly from 55ml to 227ml. Decreased tube feeding to 35ml/hr to see how residuals decrease. Patient does not appear to be in any pain, VSS. WIll continue to monitor, call light within reach.
--- NOTE | 2018-04-06 01:30 | NUR ---
Levophed decreased at this time due to stable pressures all shift. Decreased to 0.04mcg or 6.5ml. Will continue to monitor.
--- NOTE | 2018-04-06 02:30 | NUR ---
Patient continues to have stable pressures and MAPs. Decreased levophed again to 0.03mcg or 4.8ml. Will continue to monitor.
--- NOTE | 2018-04-06 04:00 | NUR ---
Patient resting comfortably on the vent. Assessment complete. VSS. Levophed lowered to 0.02mcg or 3.2ml at 0340 this morning. Patient tolerating well. VS holding steady with decreases. Patient no longer has bloody sputum, now light yellow color. Residuals have decreased to 147mls, tube feeding increased back to 45ml/hr. Patient's FIO2 was decreased to 40%, but patient sats dropped to 90-91%, ventilator increased back to 50%, now O2 sats at 95%. Patient has no further needs at this time. Will continue to monitor, Call light within reach.
--- NOTE | 2018-04-06 05:40 | NUR ---
Patient has been on sedation vacation for over an hour. Patient has started pulling on lines and restraints, trying to pull out the tube. Tried redirecting and talking to the patient, but he continually shakes his head no and tries to grab at any line he can. Patient is also coughing hard against the vent. Propofol restarted at 20mcg and fentanyl at 50mcg. Respiratory notified because smart care has not been done yet. Will continue to monitor. Call light within reach.
[2018-04-06 06:56] LABS: HEMATOCRIT 21.3 % (42.0-52.0); HEMOGLOBIN 7.4 g/dl (13.5-18.0); MEAN CELL VOLUME 82 fl (80.0-100.0); MEAN CORPUSCULAR HEMOGLOBIN 28 pg (27.0-31.0); MEAN CORPUSCULAR HGB CONC 35 g/dl (33.0-37.0); MEAN PLATELET VOLUME 11.1 fl (7.4-10.4); PLATELET COUNT 112 K/mm3 (130-400); REDCELL DISTRIBUTION WIDTH-CV 15.7 % (11.5-14.5)
[2018-04-06 07:04] LABS: CALCIUM 8.6 mg/dL (8.4-10.2)
[2018-04-06 07:09] LABS: ARTERIAL BLD GAS O2 SATURATION 94.2 % (92-100); ARTERIAL BLOOD GAS BASE EXCESS -0.2 (-2-2); ARTERIAL BLOOD GAS HCO3 24.7 meq/L (22-26); ARTERIAL BLOOD GAS PCO2 41.6 mmHg (35-45); ARTERIAL BLOOD GAS PO2 74.6 mmHg (80-100); ARTERIAL BLOOD GAS pH 7.39 (7.35-7.45)
[2018-04-06 07:10] LABS: BAND 2 % (0-10); LYMPHOCYTE 4 % (20.0-51.0); NEUTROPHILS 91 % (42.0-75.2)
[2018-04-06 07:11] LABS: CREATININE, serum 8.18 mg/dL (0.66-1.25); TARGET CELLS 3+
[2018-04-06 07:12] LABS: PLATELET ESTIMATE DECREASED (NORMAL)
[2018-04-06 07:14] LABS: ANISOCYTOSIS 1+; DOHLE BODIES PRESENT
--- NOTE | 2018-04-06 07:20 | NUR ---
BEDSIDE REPORT RECEIVED FROM FROM KANDIS PALOMARES. PATIENT INTUBATED AND SEDATED. ALL LINES, TUBE, GTTS REVIEWED. CARE TAKEN OVER AT THIS TIME.
--- NOTE | 2018-04-06 08:05 | NUR ---
CPAP TRIAL ATTEMPTED. PT WOULD NOT BREATHE W/O PROMPTING. SEDATION BACK ON, CPAP TRIAL ENDED, PT BACK ON CMV. NOTIFIED.
--- NOTE | 2018-04-06 10:00 | NUR ---
Smart care attempted with this patient. RT at bedside. Patient placed in CPAP mode and his respirations were 5/min with periods of significant apnea. Stimulation required for patient to continue breathing. Spontaneous respirations were inconsisitent without stimulation. Smart care aborted after a few minutes.
[2018-04-06 11:01] LABS: HEMATOCRIT 21.3 % (42.0-52.0); HEMOGLOBIN 7.4 g/dl (13.5-18.0)
--- NOTE | 2018-04-06 11:30 | NUR ---
Family here to visit patient. 2 person visitor rule reviewed. We agreed on a family meeting with SUNIL at 1330 for 30 minutes.
[2018-04-06 13:26] LABS: ARTERIAL BLD GAS TCO2 CT 26.1; ARTERIAL BLOOD GAS BASE EXCESS -1.3 (-2-2); ARTERIAL BLOOD GAS HCO3 24.6 meq/L (22-26); ARTERIAL BLOOD GAS PCO2 47.6 mmHg (35-45); ARTERIAL BLOOD GAS PO2 80.7 mmHg (80-100); ARTERIAL BLOOD GAS pH 7.33 (7.35-7.45)
--- NOTE | 2018-04-06 14:00 | NUR ---
CPAP TRIAL AGAIN ATTEMPTED WITH PT PASSING EASILY THIS TIME. SMART CARE INITIATED. PS 20 AT START OF TRIAL. PT ON SMART CARE FOR AN HOUR WITH PS DROPPING TO ZERO BY END OF TRIAL. PT AWAKE, ALERT WITH FAMILY MEMBERS AT BEDSIDE. ETCO2 @ 40-44 THROUGHOUT TRIAL. PT BACK ON CMV WITH SEDATION TO REST.
--- NOTE | 2018-04-06 18:00 | NUR ---
HERE TO VISIT. UPDATE GIVEN. PHONE NUMBER AND PRIVACY PASSCODE GIVEN TO AT THIS TIME AFTER SHE STATES THAT SHE DOESN'T KNOW WHAT IS GOING ON WITH THE PATIENT. I ENCOURAGE HER TO CALL FOR UPDATES ANY TIME.
--- NOTE | 2018-04-06 19:10 | NUR ---
Bedside report given to KANDIS Ferguson. Plan of care reviewed. Care turned over at this time.
--- NOTE | 2018-04-06 19:15 | NUR ---
Bedside report received from KANDIS Castañeda. All lines and medications reviewed. Transfer of care at this time.
--- NOTE | 2018-04-06 20:00 | NUR ---
Assessment complete at this time. Patient is resting comfortably in bed on the vent. No signs of pain or distress. Patient has an increased amount of residual from his OG tube, 282mls. Tube feeding put on hold. Patient has some coarse lung sounds, but overall sounds better than previous day. Still having small to scant amount of pale yellow sputum. Repositioned for comfort. Patient follows commands and opens eyes to voice. Patient has no further needs at this time. Will continue to monitor. Call light within reach.
[2018-04-06 20:11] LABS: ARTERIAL BLD GAS O2 SATURATION 94.1 % (92-100); ARTERIAL BLD GAS TCO2 CT 22.5; ARTERIAL BLOOD GAS BASE EXCESS -3.9 (-2-2); ARTERIAL BLOOD GAS HCO3 21.3 meq/L (22-26); ARTERIAL BLOOD GAS PCO2 38.8 mmHg (35-45); ARTERIAL BLOOD GAS PO2 80.5 mmHg (80-100); ARTERIAL BLOOD GAS pH 7.36 (7.35-7.45)
--- NOTE | 2018-04-06 21:00 | NUR ---
Checked patient's OG tube residuals again after an hour of holding tube feeding. There is currently 0mls of residual feeding. Tube feeding restarted at 45mls/hr.
--- NOTE | 2018-04-06 22:09 | NUR ---
SUCTIONED MODERATE AMOUNT OF THICK PATEL SECRETIONS.
[2018-04-07] VITALS (826 sets, daily range): BP systolic 98–119; BP diastolic 44–60; PULSE 74–84; TEMP 97.8–99; O2SAT 88–100
--- NOTE | 2018-04-07 | NUR ---
Assessment complete. Patient resting comfortably on the vent. Residuals remain in normal range. Bowel sounds continue to be hyperactive. Rectal tube remains in place with small amounts of output. Patient has had no urine output. Vitals stable. No current needs at this time. Will continue to monitor. Call light within reach.
--- NOTE | 2018-04-07 04:00 | NUR ---
Patient resting on the vent at this time. Bowel sounds have slowed down from hyperactive. Patient does not appear to be in any pain. Patient has no other needs at this time. Will continue to monitor. Call light within reach.
--- NOTE | 2018-04-07 05:05 | NUR ---
FIO2 INCREASED DUE TO ABG RESULTS
--- NOTE | 2018-04-07 05:10 | NUR ---
Patient's ABG results have declined. Leah, RT increased FIO2 to 60%.
[2018-04-07 05:40] LABS: ARTERIAL BLD GAS O2 SATURATION 91.2 % (92-100); ARTERIAL BLOOD GAS BASE EXCESS -3.9 (-2-2); ARTERIAL BLOOD GAS pH 7.34 (7.35-7.45)
[2018-04-07 05:41] LABS: MEAN CELL VOLUME 86 fl (80.0-100.0); MEAN CORPUSCULAR HGB CONC 34 g/dl (33.0-37.0); MEAN PLATELET VOLUME 10.3 fl (7.4-10.4); PLATELET COUNT 97 K/mm3 (130-400); RED BLOOD COUNT 2.56 M/mm3 (4.20-5.60)
[2018-04-07 05:44] LABS: HEMATOCRIT 22.1 % (42.0-52.0); HEMOGLOBIN 7.5 g/dl (13.5-18.0); MEAN CORPUSCULAR HEMOGLOBIN 29 pg (27.0-31.0)
--- NOTE | 2018-04-07 05:44 | NUR ---
Patient taken off of sedation vacation at this time. Patient was coughing continuously against the vent and was becoming increasingly restless. Was unable to redirect the patient. Propofol increased back to 20mcg. Will continue to monitor. Call light within reach.
[2018-04-07 05:53] LABS: CALCIUM 8.7 mg/dL (8.4-10.2); MAGNESIUM 2.7 mg/dL (1.6-2.3); PHOSPHOROUS 7.2 mg/dL (2.5-4.5); POTASSIUM 3.8 mmol/L (3.4-5.0)
[2018-04-07 06:07] LABS: CREATININE, serum 9.04 mg/dL (0.66-1.25)
[2018-04-07 06:14] LABS: BAND 9 % (0-10); LYMPHOCYTE 23 % (20.0-51.0); NEUTROPHILS 61 % (42.0-75.2); NUCLEATED RED BLOOD CELL 4 (0-6)
[2018-04-07 06:15] LABS: PLATELET ESTIMATE DECREASED (NORMAL)
[2018-04-07 06:19] LABS: TARGET CELLS 2+
--- NOTE | 2018-04-07 07:00 | NUR ---
Bedside report received from KANDIS Ferguson. Patient currently sedated and ventilated. All vent settings, lines, tubes, drains, gtts evaluated. Care taken over at this time.
--- NOTE | 2018-04-07 08:00 | NUR ---
Dr. Barahona here to see patient. Order received for PICC line to be placed.
--- NOTE | 2018-04-07 09:30 | NUR ---
PICC line placement completed. Family updated and Dr. Barahona has spoken to , Aida, via phone and spoke about plan of care. Plan for dialysis late this morning.
--- NOTE | 2018-04-07 11:12 | NUR ---
COPIOUS SECRETIONS SX FROM ETT AND ORALLY. THICK WHITE.
--- NOTE | 2018-04-07 13:15 | NUR ---
HEMODIALYSIS STARTED, JOSE HD RN, AT BEDSIDE. BLOOD CONSENT OBTAINED VIA PHONE CONSENT FROM . PRBC OBTAINED FROM LAB AND VERIFIED WITH ANOTHER RN. BLOOD ADMINISTRATION STARTED BY HD RN. WILL CONTINUE TO MONITOR
--- NOTE | 2018-04-07 13:30 | NUR ---
SEE VITAL SIGN FLOW SHEET FROM HEMODIALYSIS FOR BLOOD TRANSFUSION VITAL SIGNS.
--- NOTE | 2018-04-07 14:00 | NUR ---
, KARIN, HERE TO SEE PATIENT. SHE REQUESTS TO SPEAK TO SOCIAL WORK REGARDING THE PATIENT'S SITUATION. DAWIT, SOCIAL WORK, CALLED TO COME SPEAK WITH PATIENT'S .
--- NOTE | 2018-04-07 15:30 | NUR ---
COPIOUS AMOUNTS CONTINUE TO BE SUCTIONED THROUGH ETT AND ORALLY.
--- NOTE | 2018-04-07 16:18 | NUR ---
PT PLACED ON SMARTCARE AT THIS TIME PER DR. ORTEGA
--- NOTE | 2018-04-07 16:18 | NUR ---
PT PLACED ON SMARTCARE PER DR. ORTEGA AT BEDSIDE AT THIS TIME. PT DOING VERY WELL. VT 830, RR 12-14, FIO2 WAS WEANED TO 50%. BEGAN PRESSURE SUPPORT AT 20.
--- NOTE | 2018-04-07 17:21 | NUR ---
ENDED SMARTCARE AT 1705. PT DID WELL W/ SMARTCARE TRIAL. WILL DO AGAIN IN THE AM.
--- NOTE | 2018-04-07 19:30 | NUR ---
Bedside report given to KANDIS Ferguson. Plan of Care discussed. All vent settings reviewed, iv gtts, lines, tubes, etc reviewed. Care turned over at this time.
--- NOTE | 2018-04-07 19:35 | NUR ---
Bedside report received from KANDIS Castañeda. All lines and medications reviewed. Transfer of care at this time.
--- NOTE | 2018-04-07 20:00 | NUR ---
Patient resting comfortably on the vent. Opens eyes to voice and follows commands. Patient grimmaces when trying to squeeze left hand or when left arm is moved. Otherwise patient appears comfortable. Patient is having more secretions than he was the previous day. Frequent suctioning required. Patient has no current needs at this time. Will continue to monitor. Call light within reach.
[2018-04-08] VITALS (826 sets, daily range): BP systolic 106–156; BP diastolic 51–71; PULSE 82–100; TEMP 97.8–99; O2SAT 66–100
--- NOTE | 2018-04-08 | NUR ---
Assessment complete. Patient is resting on the vent and appears comfortable. Propofol and Fentanyl were increased due to patient's grimacing and protective movements. Patient appears more comfortable now. Assessment reveals some fine crackles in the bases of the lungs. Patient's secretions have decreased slightly. No further needs at this time. Will continue to monitor. Call light within reach.
--- NOTE | 2018-04-08 04:00 | NUR ---
Assessment complete at this time. Patient is resting on the vent and appears comfortable. He is having increased gastric residuals again, 192ml. Patient is still coughing frequently, but is having decreased secretions overall. Patient is also having smaller amounts of stools. Rectal tube collection bag replaced. Patient has no needs at this time. Will continue to monitor. Call light within reach.
[2018-04-08 05:03] LABS: ARTERIAL BLD GAS O2 SATURATION 90.8 % (92-100); ARTERIAL BLD GAS TCO2 CT 24.2; ARTERIAL BLOOD GAS BASE EXCESS -3.8 (-2-2); ARTERIAL BLOOD GAS HCO3 22.8 meq/L (22-26); ARTERIAL BLOOD GAS PCO2 48.4 mmHg (35-45); ARTERIAL BLOOD GAS PO2 67.3 mmHg (80-100); ARTERIAL BLOOD GAS pH 7.29 (7.35-7.45)
--- NOTE | 2018-04-08 05:15 | NUR ---
Patient placed on a sedation vacation and smart care started. Patient is doing well at this time and tolerating the vent and smart care trial.
[2018-04-08 05:40] LABS: MEAN CELL VOLUME 84 fl (80.0-100.0); MEAN CORPUSCULAR HGB CONC 34 g/dl (33.0-37.0); MEAN PLATELET VOLUME 11.9 fl (7.4-10.4); PLATELET COUNT 116 K/mm3 (130-400); RED BLOOD COUNT 3.04 M/mm3 (4.20-5.60); REDCELL DISTRIBUTION WIDTH-CV 16.2 % (11.5-14.5)
--- NOTE | 2018-04-08 05:43 | NUR ---
PT PUSHPA CPAP TRIAL VERY WELL, PLACED ON SMART CARE PUSHPA WELL WITH NO DISTRESS NOTED AT THIS TIME. PT WILL CONTINUE TO BE MONITORED.
--- NOTE | 2018-04-08 05:45 | NUR ---
Patient has been taken off smart care at this time due to periods of apnea.
[2018-04-08 05:48] LABS: HEMATOCRIT 25.5 % (42.0-52.0); HEMOGLOBIN 8.7 g/dl (13.5-18.0); MEAN CORPUSCULAR HEMOGLOBIN 29 pg (27.0-31.0)
[2018-04-08 05:53] LABS: MAGNESIUM 2.4 mg/dL (1.6-2.3); POTASSIUM 4.1 mmol/L (3.4-5.0)
[2018-04-08 05:57] LABS: CREATININE, serum 7.19 mg/dL (0.66-1.25)
[2018-04-08 06:13] LABS: BAND 4 % (0-10); EOSINOPHIL 3 % (0-4); LYMPHOCYTE 34 % (20.0-51.0); METAMYELOCYTE 28 % (0-0); MYELOCYTE 2 % (0-0); NEUTROPHILS 23 % (42.0-75.2); NUCLEATED RED BLOOD CELL 7 (0-6)
[2018-04-08 06:14] LABS: ANISOCYTOSIS 1+; PLATELET ESTIMATE DECREASED (NORMAL)
[2018-04-08 06:16] LABS: TARGET CELLS 1+; TEAR DROP CELLS 1+
[2018-04-08 06:17] LABS: SCHISTOCYTES 1+
--- NOTE | 2018-04-08 07:12 | NUR ---
Bedside report given to KANDIS Robert. All lines and medications reviewed. Transfer of care at this time.
--- NOTE | 2018-04-08 07:28 | NUR ---
PT'S VENT FILTER CHANGED AT THIS TIME, CUFF PRESSURE INCREASED FROM 18 TO [id number].
--- NOTE | 2018-04-08 08:08 | NUR ---
INITIAL ASSESSMENT COPMPLETED. PATIENT RESTING COMFORTABLY IN BED. HE DID WAKE UP AND TURN HIS HEAD WHEN TALKED TO. VSS. TUBE FEEDING IN PROGRESS.
--- NOTE | 2018-04-08 09:39 | NUR ---
Late entry: SUNIL met with of patient who discussed concerns of being left out due to older daughter stepping in and trying "boguard" the situation. states that she is fully aware and wants decision about the pt to go through her as she is his . reports she would like her to come home. SW gave her resources of at home hospice care vs hospice house if that comes about. said that she will continue to think on what decision she will make including being able to withdrawn care if it comes to that also. SW will continue to follow and support family.
--- NOTE | 2018-04-08 14:09 | NUR ---
PT'S SETTING PER DR. ORTEGA AT BEDSIDE AT 1155 TODAY.
--- NOTE | 2018-04-08 16:37 | NUR ---
SEDATION WAS DECREASED AT 1520 IN PREPERATION FOR A SMARTCARE TRIAL. PATIENT IS MUCH MORE AROUSABLE AT THIS TIME. HE DOES COUGH FREQUENTLY WHENEVER BEING MESSED WITH. WAS CALLED AND AN UPDATE WAS GIVEN. I TOLD HER THAT DR. ORTEGA WOULD LIKE TO PLAN FOR A TRACH AND PEG TUBE TUESDAY MORNING. SHE VERBALIZED UNDERSTANDING AND STATES THAT SHE IS GOING TO GET ALL OF THEIR KIDS TOGETHER TOMORROW TO GO OVER THINGS AND MAKE SOME DECISIONS ABOUT THE TRACH AND THE PEG TUBE.
--- NOTE | 2018-04-08 17:00 | NUR ---
Attempted to do a smartcare trial, but patient was too sleepy and kept drifting off to sleep and not breathing. Sedation was turned off and we will attempt to do a smartcare trial in a whil
[2018-04-08 17:06] LABS: ARTERIAL BLD GAS O2 SATURATION 95.3 % (92-100); ARTERIAL BLD GAS TCO2 CT 21.6; ARTERIAL BLOOD GAS BASE EXCESS -4.1 (-2-2); ARTERIAL BLOOD GAS HCO3 20.5 meq/L (22-26); ARTERIAL BLOOD GAS PCO2 35.6 mmHg (35-45); ARTERIAL BLOOD GAS PO2 82.4 mmHg (80-100); ARTERIAL BLOOD GAS pH 7.38 (7.35-7.45)
--- NOTE | 2018-04-08 17:50 | NUR ---
PT DID NOT GET TO ATTEMPT SMARTCARE THIS AFTERNOON. DURING CPAP TRIAL PT WENT APNEIC. PT DID WELL FOR THE FIRST FEW BREATHS, BUT WITHIN A MINUTE HAD APNEA. DID THIS SEVERAL TIMES, SEDATION COMPLETELY TURNED OFF AT THIS TIME. MILL LABOR SUPERVISOR RT CAN ATTEMPT TRIAL.
--- NOTE | 2018-04-08 18:47 | NUR ---
ALL SEDATION HAS BEEN TURNED OFF SINCE APPROXIMATELY 1809. PATIENT WAS STILL VERY GROGGY AND NOT WILLING TO FOLLOW COMMANDS. SINCE TURNING OFF SEDATION, PATIENT IS NOT LIFTING HIS HEAD OFF THE PILLOW AND FOLLOWING COMMANDS. HE DOES OCCASSIONALY COUGH WELL.
--- NOTE | 2018-04-08 19:15 | NUR ---
Report given to KANDIS Chirinos.
--- NOTE | 2018-04-08 20:30 | NUR ---
PT VOMITING WHEN ENTERING RM. HEAD OF BED WAS ELEVATED, TUBE FEEDS PUT ON HOLD, ORAL CAVITY SUCTIONED AND ET TUBE SUCTIONED WELL. PT SP02 100% AT TIME OF EVENT. PT GRIMACING WHEN LEFT KNEE TOUCHED AND PT NODDED YES WHEN ASKED IF HAD HX OF GOUT. MED HX SHOWS HOME USE OF ALLUPPURINOL WHICH IS NOT CURRENTLY ORDERED. EICU CONTACTED REGARDING LEFT KNEE AND EPISODE OF VOMITING.
[2018-04-09] VITALS (715 sets, daily range): BP systolic 142–196; BP diastolic 66–88; PULSE 77–100; TEMP 98.4–99.3; O2SAT 83–100
--- NOTE | 2018-04-09 01:38 | NUR ---
TUBE FEEDS RESUMED FOLLOWING REGLAN ADMIN. PT C/O PAIN FROM GOUT ADDITIONALLY IN LEFT HAND.
--- NOTE | 2018-04-09 03:42 | NUR ---
INCREASED FENTYNL PER EICU DIRECTION FOR PT PAIN
[2018-04-09 05:13] LABS: ARTERIAL BLD GAS O2 SATURATION 97.8 % (92-100); ARTERIAL BLD GAS TCO2 CT 21.7; ARTERIAL BLOOD GAS BASE EXCESS -3.3 (-2-2); ARTERIAL BLOOD GAS HCO3 20.7 meq/L (22-26); ARTERIAL BLOOD GAS PCO2 32.6 mmHg (35-45); ARTERIAL BLOOD GAS PO2 127.1 mmHg (80-100); ARTERIAL BLOOD GAS pH 7.42 (7.35-7.45)
[2018-04-09 05:35] LABS: MEAN CELL VOLUME 82 fl (80.0-100.0); MEAN CORPUSCULAR HGB CONC 34 g/dl (33.0-37.0); MEAN PLATELET VOLUME 10.9 fl (7.4-10.4); PLATELET COUNT 128 K/mm3 (130-400)
[2018-04-09 05:37] LABS: HEMATOCRIT 25.5 % (42.0-52.0); HEMOGLOBIN 8.7 g/dl (13.5-18.0); MEAN CORPUSCULAR HEMOGLOBIN 28 pg (27.0-31.0)
[2018-04-09 05:55] LABS: CALCIUM 9.6 mg/dL (8.4-10.2); POTASSIUM 3.7 mmol/L (3.4-5.0)
[2018-04-09 05:57] LABS: CREATININE, serum 9.01 mg/dL (0.66-1.25)
[2018-04-09 06:11] LABS: MAGNESIUM 2.6 mg/dL (1.6-2.3)
--- NOTE | 2018-04-09 06:24 | NUR ---
PT CURRENTLY ON SMART CARE. PT REFUSED TO BE REPOSITIONED AND IS COMFORTABLE IS. WILL REPOSTION PT AFTER COMPLETION OF SMART CARE.
--- NOTE | 2018-04-09 07:04 | NUR ---
PT IS ON SMARTCARE TRIAL AT THIS TIME. NO DISTRESS NOTED. PT DOING VERY WELL. PRESSURE SUPPORT IS CURRENTLY WEANED TO 10. PATIENT PULLING GOOD TIDAL VOLUMES. RR IS NORMAL. PEAK PRESSURES HAVE REMAINED UNDER 20. WILL CONTINUE TO MONITOR.
[2018-04-09 07:10] LABS: BAND 28 % (0-10); EOSINOPHIL 1 % (0-4); LYMPHOCYTE 6 % (20.0-51.0); METAMYELOCYTE 4 % (0-0); MYELOCYTE 2 % (0-0); NEUTROPHILS 55 % (42.0-75.2); NUCLEATED RED BLOOD CELL 1 (0-6); TARGET CELLS 2+
[2018-04-09 07:11] LABS: ANISOCYTOSIS 1+; PLATELET ESTIMATE DECREASED (NORMAL); POLYCHROMASIA 1+
--- NOTE | 2018-04-09 07:15 | NUR ---
Report received from KANDIS Chirinos, patient currently getting dialysis in room.
--- NOTE | 2018-04-09 07:57 | NUR ---
CHECKED ON PT AT THIS TIME. VENT/SMARTCARE IS STATING CONSIDER SEPERATION. PT TOLERATING VERY WELL. WILL CONTINUE TO MONITOR.
--- NOTE | 2018-04-09 08:25 | NUR ---
Assessment complete, patient remains intubated, currently on dialysis, KANDIS Lyon (steam and power supervisor) at bedside. Patient awake and alert following all commands, currently off all sedation for smart care trial.
--- NOTE | 2018-04-09 09:10 | NUR ---
Patient vomited, RT at bedside, patient thoroughly suctioned, family at bedside.
--- NOTE | 2018-04-09 09:20 | NUR ---
Patient placed back on CMV mode, propofol/fentanyl gtt turned back on for patient comfort.
--- NOTE | 2018-04-09 09:28 | NUR ---
PT BEGAN VOMITTING WHILE I WAS IN ROOM. BEGAN ORAL SX. APPEARS THAT NONE WAS ASPIRATED THROUGH AIRWAY. ASSISTED RN W/ ORAL CARE. SX ETT. CHECKED TUBE PLACEMENT AND CUFF PRESSURE AT THIS TIME. BOTH REMAIN STABLE. PT TAKEN OFF SMARTCARE AT THIS TIME, ALTHOUGH IT CONTINUES TO STATE CONSIDER SEPERATION DUE TO PT RECEIVED MORE SEDATION AT THIS TIME.
--- NOTE | 2018-04-09 10:20 | NUR ---
BR decreased to [address] Barahona.
--- NOTE | 2018-04-09 10:24 | NUR ---
RR CHANGED PER DR. ORTEGA AT BEDSIDE AT THIS TIME.
--- NOTE | 2018-04-09 11:11 | NUR ---
PT in working with patient.
--- NOTE | 2018-04-09 14:43 | NUR ---
Patient resting quietly on ventilator.
--- NOTE | 2018-04-09 19:04 | NUR ---
Bedside report given to KANDIS Chirinos.
[2018-04-10] VITALS (893 sets, daily range): BP systolic 107–175; BP diastolic 58–112; PULSE 77–90; TEMP 97–99.3; O2SAT 81–100
[2018-04-10 05:23] LABS: MEAN CELL VOLUME 86 fl (80.0-100.0); MEAN CORPUSCULAR HGB CONC 34 g/dl (33.0-37.0); MEAN PLATELET VOLUME 10.5 fl (7.4-10.4); PLATELET COUNT 153 K/mm3 (130-400); RED BLOOD COUNT 3.02 M/mm3 (4.20-5.60); REDCELL DISTRIBUTION WIDTH-CV 16.8 % (11.5-14.5)
[2018-04-10 05:25] LABS: HEMATOCRIT 25.9 % (42.0-52.0); HEMOGLOBIN 8.7 g/dl (13.5-18.0); MEAN CORPUSCULAR HEMOGLOBIN 29 pg (27.0-31.0)
[2018-04-10 05:34] LABS: ALBUMIN 3.1 gm/dL (3.5-5.0); BILIRUBIN,TOTAL 1.2 mg/dL (0.0-1.0); CALCIUM 9.8 mg/dL (8.4-10.2); POTASSIUM 3.9 mmol/L (3.4-5.0); TOTAL PROTEIN 7.1 gm/dL (6.4-8.2)
[2018-04-10 05:36] LABS: CREATININE, serum 7.11 mg/dL (0.66-1.25)
[2018-04-10 05:44] LABS: MAGNESIUM 2.4 mg/dL (1.6-2.3); PHOSPHOROUS 6.7 mg/dL (2.5-4.5)
[2018-04-10 05:51] LABS: PRE ALBUMIN 23.5 mg/dL (17.6-36.0)
[2018-04-10 06:44] LABS: BAND 8 % (0-10); EOSINOPHIL 3 % (0-4); LYMPHOCYTE 10 % (20.0-51.0); MYELOCYTE 1 % (0-0); NEUTROPHILS 75 % (42.0-75.2); NUCLEATED RED BLOOD CELL 1 (0-6)
[2018-04-10 06:47] LABS: PLATELET ESTIMATE DECREASED (NORMAL)
[2018-04-10 06:48] LABS: ANISOCYTOSIS 1+; TARGET CELLS 3+
[2018-04-10 06:50] LABS: POLYCHROMASIA 1+
--- NOTE | 2018-04-10 07:00 | NUR ---
Pt turns head to look at doorway when staff members are gowning up in prior to entering room. Pt able to shake hand firmly when staff members are introduced to pt. All sedation paused prior to my arrival - pt is calm, following all commands and agreeable to head-to-toe assessment and oral care. Care was taken not to stimulate gag-reflex d/t recent history of vomiting. ETT placed in R lip position. Skin around ETT reamains intact with no signs of skin breakdown. Oral mucosa pink and appears well hydrated with no dry patchy areas. MD Jun here at bedside. Call light within reach and television volume appropriate per pt. No family members present at this time.
--- NOTE | 2018-04-10 07:49 | NUR ---
Per MD Jun pt will remain on CPAP trial unitl 0830. At that time ABG will be collected and AsistControl will be resumed. Extubation will be considered by MD Jun if gassess are within acceptable range. Patience,RT at bedside for this communicated plan. No family members present.
[2018-04-10 08:02] LABS: PATHOLOGY DIFF REVIEW OK +
--- NOTE | 2018-04-10 08:06 | NUR ---
Visitor at bedside - states she has lived with Mr. Zheng for 40+ years. Pt remains calm
--- NOTE | 2018-04-10 08:40 | NUR ---
PICC intact right upper arm. With sterile technique right upper arm PICC dressing change done with insertion site cleansed with ChloraPrep 1, skin prep, StatLock, and Tegaderm applied. No signs or symptoms of IV complications noted. Patient on ventilator unable to address any concerns.
--- NOTE | 2018-04-10 09:00 | NUR ---
Pt respiratory rate >28/min - therefore the plan per MD Jun will be to restart sedation and tubefeeds (to stop at midnight). Sedation and tube feeds have been restarted. Vistor undated on plan by MD Jun
--- NOTE | 2018-04-10 09:01 | NUR ---
PT SWITCHED TO SIMV AT THIS TIME PER DR. ORTEGA. ALARMS SET AND FUNCTIONING. ABG PENDING LATER THIS AFTERNOON. PT APPEARS COMFORTABLE. VITAL SIGNS STABLE.
--- NOTE | 2018-04-10 09:10 | NUR ---
Spouse Aida (Medical DPOA) is stating she is very stressed due to inability to pay bills since she lacks Financial DPOA. Notary and were attempting to obtain consent from pt for Financial DPOA prior to this staff memember stopping them due to pt recieving sedation. Spouse educated by KANDIS Blackburnmanager of drilling on legality of situation. Jolanta, Social Work has been notified and aware. She will be on unit soon to help resolve issue. Aida has left unit stating "she has to take family member to work and has to babysit grandkids". Her return is unknown. Aida states "we have no idea how much pressure she is under." She also stated she is "going to fucking lose it". Andrew from Security has been notified. Senior Software Engineering Manager Fay has been notified. KANDIS Hensley manager bakery aware as well. head golf professional Radha also aware.
--- NOTE | 2018-04-10 10:36 | NUR ---
Range of Motion exercises of left leg caused facial grimmace and pt was able to nod "yes" when asked if that leg was painful with movement. All other extremities were passively exercised without facial grimmace.
--- NOTE | 2018-04-10 10:57 | NUR ---
PT STARTED ON SMART CARE @[address] ORTEGA AT BEDSIDE AT THIS TIME. PT NIF -36, RSBI 45 BUT STILL AT THIS TIME DOES NOT SAY CONSIDER SEPERATION ON VENT. PER DR. ORTEGA IF THAT DOES NOT OCCUR BY 30 WE WILL AGAIN REST PT AND ATTEMPT AGAIN TOMORROW AM.
[2018-04-10 11:51] LABS: ARTERIAL BLD GAS O2 SATURATION 95.9 % (92-100); ARTERIAL BLD GAS TCO2 CT 21.3; ARTERIAL BLOOD GAS BASE EXCESS -4.9 (-2-2); ARTERIAL BLOOD GAS HCO3 20.2 meq/L (22-26); ARTERIAL BLOOD GAS PCO2 37.5 mmHg (35-45); ARTERIAL BLOOD GAS PO2 94.2 mmHg (80-100); ARTERIAL BLOOD GAS pH 7.35 (7.35-7.45)
--- NOTE | 2018-04-10 14:30 | NUR ---
Blood product checked with other POLICE CRIME SCENE TECHNICIAN, and administered with Hemodialysis by reading intervention teacher
--- NOTE | 2018-04-10 16:08 | NUR ---
Hemodialysis complete. Pt handled procedure well with no difficulty. Vital signs remain stable. No family members have been present since Aida this morning.
--- NOTE | 2018-04-10 16:13 | NUR ---
moving worker spoke with patient's spouse and advised that we will not be able to complete a durable power of pattern hand for finances as patient cannot verbalize his understanding of the document and desire to complete as patient is on the ventilator at this time. Spouse verbalizes understanding of this information. Worker and spouse discussed the possible need for [facility]. Spouse is agreeable with this plan and verbalizes that she does not have a preference with [place] or [facility]. Worker contacted Osorio with [facility] and gave a referral. Worker faxed clinical information. Osorio will visit patient and staff on 04/11/18.
--- NOTE | 2018-04-10 17:11 | NUR ---
No sedation vacation performed as VORB from MD Jun. Plan is to attepmt extubation in AM. Pt able to follow commnands on current sedation level
--- NOTE | 2018-04-10 19:04 | NUR ---
Report recieved from KANDIS Guillen. Patient in bed ventilated and sedated. 2ptSW restraints in place to bilateral wrists. 8.0 ETT 26@lip with vent settings as ordered. RT at bedside to start nebulizer. OG 70cm@lip to LIS. NOLAN AVF with tape/gauze dressing per dialysis nurse CDI. NOLAN PICC CDI with propofol at 15mcg/kg/hr and fentanyl at 50mcg/hr running to purple port. Herman to dependent drainage with scant pink tinged urine noted. Flexiseal with positive liquid stool output to dependent drainage. Patient responds to voice and follows commands appropriately. Bed in low and locked position, call light within reach, rails up x3, and bed alarm armed. Daughter and son at bedside and deny needs or questions at this time. Daughter and son are encouraged to don PPE for contact/droplet precautions and refuse to do so at this time. Care assumed.
--- NOTE | 2018-04-10 20:47 | NUR ---
Dr. Mendiola calls for patient update and is provided such. Orders entered as provided TORB by provider for prn hydralizine and addition of AM BNP. Care ongoing.
[2018-04-11] VITALS (570 sets, daily range): BP systolic 104–179; BP diastolic 59–117; PULSE 85–87; TEMP 98.5–99.3; O2SAT 44–100
[2018-04-11 05:04] LABS: ARTERIAL BLD GAS O2 SATURATION 94.7 % (92-100); ARTERIAL BLD GAS TCO2 CT 26.4; ARTERIAL BLOOD GAS BASE EXCESS -0.3 (-2-2); ARTERIAL BLOOD GAS PO2 81.6 mmHg (80-100); ARTERIAL BLOOD GAS pH 7.37 (7.35-7.45)
--- NOTE | 2018-04-11 05:10 | NUR ---
Sedation vacation provided at this time. See associated documentation. RT aware and with plans to initiate smart care at 0530. Care ongoing.
[2018-04-11 05:32] LABS: CALCIUM 9.5 mg/dL (8.4-10.2); MAGNESIUM 2.3 mg/dL (1.6-2.3); PHOSPHOROUS 7.6 mg/dL (2.5-4.5); POTASSIUM 3.8 mmol/L (3.4-5.0)
[2018-04-11 05:38] LABS: CREATININE, serum 6.33 mg/dL (0.66-1.25)
[2018-04-11 07:36] LABS: MEAN CELL VOLUME 84 fl (80.0-100.0); MEAN CORPUSCULAR HGB CONC 34 g/dl (33.0-37.0); MEAN PLATELET VOLUME 11.2 fl (7.4-10.4); PLATELET COUNT 184 K/mm3 (130-400); RED BLOOD COUNT 3.23 M/mm3 (4.20-5.60); REDCELL DISTRIBUTION WIDTH-CV 16.2 % (11.5-14.5)
[2018-04-11 07:39] LABS: HEMATOCRIT 27.1 % (42.0-52.0); HEMOGLOBIN 9.3 g/dl (13.5-18.0); MEAN CORPUSCULAR HEMOGLOBIN 29 pg (27.0-31.0)
[2018-04-11 07:41] LABS: ARTERIAL BLD GAS O2 SATURATION 95.5 % (92-100); ARTERIAL BLD GAS TCO2 CT 24.6; ARTERIAL BLOOD GAS BASE EXCESS -1.6 (-2-2); ARTERIAL BLOOD GAS HCO3 23.4 meq/L (22-26); ARTERIAL BLOOD GAS PCO2 40.3 mmHg (35-45); ARTERIAL BLOOD GAS PO2 84.1 mmHg (80-100); ARTERIAL BLOOD GAS pH 7.38 (7.35-7.45)
--- NOTE | 2018-04-11 07:53 | NUR ---
Pt extubated with Patience,Respiratory-Therapist and MD Jun at bedside. Large amount of clear thick mucous suctioned. Pt has strong cough and able to expectorate more thick mucous. Oxymask 5L/min applied. Suction given to pt for self-prn suctioning.
--- NOTE | 2018-04-11 07:55 | NUR ---
PT EXTUBATED TO OXYMASK AT 5L/MIN. NO DISTRESS. PT COUGHED UP LARGE AMOUNT OF SECRETIONS DURING EXTUBATION THAT WAS AFTER THE OETT WAS SUCTIONED PRIOR TO EXTUBATION. NO STRIDOR NOTED. PT'S VITAL SIGNS STABLE. DR ORTEGA AND KANDIS OCAMPO AT BEDSIDE.
[2018-04-11 08:26] LABS: BAND 9 % (0-10); EOSINOPHIL 2 % (0-4); LYMPHOCYTE 8 % (20.0-51.0); NEUTROPHILS 75 % (42.0-75.2)
[2018-04-11 08:28] LABS: ANISOCYTOSIS 1+; POLYCHROMASIA 1+; TARGET CELLS 1+
--- NOTE | 2018-04-11 08:51 | NUR ---
direct support worker cancelled [facility] as Dr Mendiola said no to this plan.
--- NOTE | 2018-04-11 09:40 | NUR ---
Pt's spouse Aida updated on extubation and plan for today to keep pt here in ICU and monitor closely. Pt did talk with spouse for a few minutes before dozing off to sleep. Call light within reach. Pt's eyes are closed and resting quietly. Oxymask remians at 5L/min with 96%SpO2
--- NOTE | 2018-04-11 13:38 | NUR ---
Pt able to cough and clear throat strongly. Small sips of water given without straw and pt able to swallow with no throat clearing or coughing. Progressed to apple sauce, pills, and blenderized chicken with gravy and pt able to swallow with no difficulty or nausea/vomiting.
[2018-04-11 19:28] LABS: ARTERIAL BLD GAS O2 SATURATION 91.2 % (92-100); ARTERIAL BLD GAS TCO2 CT 23.7; ARTERIAL BLOOD GAS BASE EXCESS -2.5 (-2-2); ARTERIAL BLOOD GAS HCO3 22.5 meq/L (22-26); ARTERIAL BLOOD GAS PCO2 39.7 mmHg (35-45); ARTERIAL BLOOD GAS PO2 65.3 mmHg (80-100); ARTERIAL BLOOD GAS pH 7.37 (7.35-7.45)
--- NOTE | 2018-04-11 19:35 | NUR ---
Bedside report received from KANDIS Guillen.
--- NOTE | 2018-04-11 19:45 | NUR ---
Patient has been changed to medical status at this time by Dr. Mendiola.
--- NOTE | 2018-04-11 20:00 | NUR ---
Assessment complete. Patient resting in bed at this time. No current needs. Complaints of mild pain in his left knee, repositioned for comfort. Patient has no other needs at this time. Will continue to monitor. Call light within reach.
--- NOTE | 2018-04-11 22:00 | NUR ---
Patient states at this time that he feels like he needs to have a BM. Checked rectal tube and patient's stools have started to get more firm. Rectal Tube removed at this time. Patient tolerated well. Pericare provided. No other needs at this time. Will continue to monitor. Call light within reach.
[2018-04-12] VITALS (214 sets, daily range): BP systolic 124–178; BP diastolic 66–88; PULSE 79–86; TEMP 98–99; O2SAT 87–100
--- NOTE | 2018-04-12 | NUR ---
Patient has requested to use the bedpan at this time. Patient was unable to produce a bowel movement. Patient sleeps between disturbances. Has no new complaints of pain, just chronic pain in his left knee. Patient is able to assist with turning onto and off of the bedpan. Patient has no further needs at this time. Will continue to monitor. Call light within reach.
--- NOTE | 2018-04-12 02:00 | NUR ---
Patient is refusing to turn at this time.
[2018-04-12 06:10] LABS: MEAN CELL VOLUME 85 fl (80.0-100.0); MEAN CORPUSCULAR HGB CONC 34 g/dl (33.0-37.0); MEAN PLATELET VOLUME 11.6 fl (7.4-10.4); PLATELET COUNT 206 K/mm3 (130-400); RED BLOOD COUNT 3.19 M/mm3 (4.20-5.60); REDCELL DISTRIBUTION WIDTH-CV 16.6 % (11.5-14.5)
[2018-04-12 06:15] LABS: HEMATOCRIT 27.1 % (42.0-52.0); HEMOGLOBIN 9.1 g/dl (13.5-18.0); MEAN CORPUSCULAR HEMOGLOBIN 29 pg (27.0-31.0)
[2018-04-12 06:28] LABS: CALCIUM 9.6 mg/dL (8.4-10.2); MAGNESIUM 2.2 mg/dL (1.6-2.3); PHOSPHOROUS 8.6 mg/dL (2.5-4.5); POTASSIUM 3.9 mmol/L (3.4-5.0)
[2018-04-12 06:49] LABS: CREATININE, serum 8.91 mg/dL (0.66-1.25)
[2018-04-12 07:02] LABS: BAND 1 % (0-10); EOSINOPHIL 3 % (0-4); LYMPHOCYTE 6 % (20.0-51.0); METAMYELOCYTE 1 % (0-0); NEUTROPHILS 86 % (42.0-75.2); PLATELET ESTIMATE NORMAL (NORMAL)
[2018-04-12 07:04] LABS: ANISOCYTOSIS 1+; TARGET CELLS 1+
--- NOTE | 2018-04-12 07:10 | NUR ---
Bedside report given to KANDIS Robert.
--- NOTE | 2018-04-12 08:00 | NUR ---
INITIAL ASSESSMENT COMPLETED. PATIENT AWAKE, BUT QUICKLY FALLS BACK ASLEEP.
--- NOTE | 2018-04-12 09:38 | NUR ---
REPORT CALLED TO KANDIS RIVERA ON MEDICAL. PATIENT IS CURRENTLY BACK IN DIALYSIS AND HE WILL GO TO ROOM 352 AFTER DIALYSIS.
--- NOTE | 2018-04-12 14:10 | NUR ---
Patient arrived to unit via bed, is resting in bed on back, head resting toward left bedrail. Offered repositioning and patient stated he was comfortable. Requested assistance with TV to be turned on. Has been placed in droplet and contact precautions due to respiratory MRSA infection. Patient is weak with movements. Did have dialysis prior to coming to unit. Is on 3L O2. No family is at bedside at this time.
--- NOTE | 2018-04-12 18:31 | NUR ---
Patient sitting up in bed, family is present. Patient is "getting back to his old self," according to family. Has been joking with nursing staff and family. Was able to eat supper with some assistance from famly. Denies pain at this time. States he is comfortable in his current position.
--- NOTE | 2018-04-12 20:30 | NUR ---
PT HAD ADULT CHILDREN IN ROOM WITH HIM. PT HAD AN INCONTINENT BOWEL MOVEMENT, ASKED PT IF IT WAS OKAY TO CHANGE AND CLEAN HIM INFRONT OF CHILDREN AND HE ADVISED YES AND THEY WERE OKAY WITH IT WELL. PT DENIES PAIN OR DISCOMFORT. PT IS VERY WEAK AND NEEDS X2 ASSIST TO GET UP TO BEDSIDE COMMODE. PT DENIES PAIN OR DISCOMFORT AT THIS TIME. NO FURTHER NEEDS, CALL LIGHT WITHIN REACH.
[2018-04-13] VITALS (7 sets, daily range): BP systolic 131–171; BP diastolic 44–75; PULSE 71–79; TEMP 97.6–99.2
--- NOTE | 2018-04-13 06:32 | NUR ---
PT SLEPT/RESTED WELL THIS NIGHT, WITH NO S/S OF PAIN OR DISCOMFORT. PT HAD NC OFF AND O2 SATS WENT DOWN TO 88% ON RA, PLACED O2 BACK ON AND O2 SATS WENT BACK UP TO 93%. RESP EVEN AND UNLABORED. PT AWAKE IN BED AT THIS TIME AND DENIES PAIN OR DISCOMFORT, CALL LIGHT WITHIN REACH.
--- NOTE | 2018-04-13 11:31 | NUR ---
Assessment completed, alert/oriented, vital signs stable, denies pain, no resp.difficulty noted at rest, lungs CTA/ dimnished throughout, on 3L.O2 NC, he is feeling better overall, eating and drinking, heart RRR/distal pulses are palpable, denies needs, spoke with on phone and gave update
--- NOTE | 2018-04-13 15:16 | NUR ---
Dr Dai put in an IPR consult. Bere to Screen
--- NOTE | 2018-04-13 20:00 | NUR ---
this nurse walked in with pt facedown on floor next to bed. RT nursing aid and charge nurse where in room. pt reported reaching for something on his table and the table slided forward causing him to fall. pt reported not being hurt. assisted pt to sitting position. still no report of pain. gait belt was applied. three employees assisted pt to standing position and onto bed. no pain was reported. pt in bed. bed alarm on.
--- NOTE | 2018-04-13 20:24 | NUR ---
PT IN BED WITH HOB AT 60 DEGREE ANGLE. PT HAD SLIPPED OUT OF BED. PT ADVISES THAT HE WAS SITTING AT SIDE OF BED TO EAT HIS SUPPER AND WHEN HE WAS TRYING TO OPEN HIS PUDDING HE WAS PULLING AND HE STARTED TO SLIP OUT OF BED AND BY THE TIME HE KNEW IT HE WAS ON THE FLOOR. PT ADVISES THAT HE DID NOT HURT HIMSELF ONLY HIS PRIDE. PT FULLY IN BED AND HAS BED ALARM ON. PT DENIES PAIN OR DISCOMFORT, RESP EVEN AND UNLABORED AND O2 AT 2L/NC. CALL LIGHT WITHIN REACH.
--- NOTE | 2018-04-13 22:30 | NUR ---
Pt was found on floor face down at 1999. Fall was not witness. Bed alarm was going off at time of fall. Pt was sitting on side of bed eating meal on bedside table when pt stated "I was trying to get my food open and next thing I know Im on the floor." Pt denied any pain anywhere. Bed was moved away from the pt. Pt was able to independently roll to the left onto back. Staff assisted with head support. During each change in movement pt pain was assessed and pt denied. Gait belt was applied. Pt was assisted to seated position. Denied any further pain or dizziness. Following approx 2 minute pause pt was assisted X3 to a standing position. No pain during movement with steps backwards into bed. Pt was positioned with legs into bed in a high fowlers position. Call light with personal belongings with in reach as well as bed alarm turned back on.
[2018-04-14 01:14] VITALS: BP 145/64; PULSE 74
--- NOTE | 2018-04-14 02:32 | NUR ---
PT IN BED SLEEPING WELL. PT HAD A SPOT OF BLOOD ON THE PILLOW CASE THE SIZE OF A HALF DOLLAR. AWAKENED PT TO CHECK INSIDE OF HIS MOUTH. PT HAD SOME BLOOD INSIDE OF HIS MOUTH. SWABBED OUT PT'S MOUTH UNTIL CLEAN. PT HAD SOME CLOTS OF BLOOD IN MOUTH. AFTER CLEANING MOUTH, APPLIED MOUTH MOISTERIZER ON LIPS AND IN MOUTH. PT ADVISED THAT HIS LIPS ARE VERY DRY. DID NOT SEE ANY OPEN AREAS IN MOUTH. PT'S LIPS APPEARS TO BE DRY AND CRACKED. PT DENIES ANY PAIN OR DISCOMFORT AT THIS TIME. NO FURTHER NEEDS, CALL LIGHT WITHIN REACH.
[2018-04-14 04:37] VITALS: BP 130/55; PULSE 72; TEMP 98.1
--- NOTE | 2018-04-14 04:41 | NUR ---
PT IN BED WITH HOB AT 15 DEGREE ANGLE. PT DENIES PAIN OR DISCOMFORT. ALSO OFFERED TO PUT MORE MOUTH MOISTURIZER ON BUT HE DECLINED. PT ADVISES THAT HE DOES NOT URINATE THAT MUCH ANYMORE, SINCE HE HAS BEEN ON DIALYSIS. NO NEEDS AT THIS TIME. PT DRIFTED BACK TO SLEEP. CALL LIGHT WITHIN REACH.
[2018-04-14 08:48] VITALS: BP 143/63; PULSE 75; TEMP 98.1
[2018-04-14 09:45] LABS: CALCIUM 9.4 mg/dL (8.4-10.2); POTASSIUM 3.8 mmol/L (3.4-5.0)
--- NOTE | 2018-04-14 09:54 | NUR ---
Assessment complete.patient awake,a/ox4.denies pain or discomfort at this time.oxygen at 2l/nc.denies SOB.VSS.fistula to NOLAN and PICC to HANNAH.pt to have dialysis shortly.remains on contact precaution for MRSA.no other concerns voiced at this time.call light in reach
[2018-04-14 09:57] LABS: CREATININE, serum 9.79 mg/dL (0.66-1.25)
--- NOTE | 2018-04-14 14:15 | NUR ---
PICC intact right upper arm. With sterile technique right upper arm PICC dressing change done with insertion site cleansed with ChloraPrep 1, impregnated chlorhexidine disc applied, skin prep, StatLock, and Tegaderm applied. No signs or symptoms of IV complications noted. No concerns voiced. Arm wrapped with Bernard to protect catheter.
[2018-04-14 16:15] VITALS: BP 157/73; PULSE 80; TEMP 98.1
[2018-04-14 19:54] VITALS: BP 136/63; PULSE 76; TEMP 98
--- NOTE | 2018-04-14 20:30 | NUR ---
Initial shift assessment done- denies pain, on o2 at 2L/nc- states feels he is breathing fine. No requests at this time. Bed alarm on- pt understands to call for assistance
[2018-04-14 23:13] VITALS: BP 105/55; PULSE 84; TEMP 99.3
[2018-04-15] VITALS (7 sets, daily range): BP systolic 110–159; BP diastolic 23–82; PULSE 75–84; TEMP 97.7–98.8
[2018-04-15 06:15] LABS: BASO % 0.3 % (0.0-2.0); EOS # 0.1 (0.0-0.7); EOS % 1.5 % (0-4.0); GRAN # 6.6 (1.4-6.5); GRAN % 74.2 % (42.2-75.2); HEMOGLOBIN 10.4 g/dl (13.5-18.0); LYMPH # 1.2 (1.2-3.4); LYMPH % 13.1 % (20.0-51.0); MEAN CELL VOLUME 86 fl (80.0-100.0); MEAN CORPUSCULAR HEMOGLOBIN 28 pg (27.0-31.0); MEAN CORPUSCULAR HGB CONC 33 g/dl (33.0-37.0); MEAN PLATELET VOLUME 11.7 fl (7.4-10.4); MONO # 0.9 (0.1-0.6); MONO % 10.2 % (1.7-9.3); PLATELET COUNT 264 K/mm3 (130-400)
[2018-04-15 06:18] LABS: HEMATOCRIT 31.9 % (42.0-52.0)
[2018-04-15 06:24] LABS: CALCIUM 9.6 mg/dL (8.4-10.2); POTASSIUM 4.3 mmol/L (3.4-5.0)
--- NOTE | 2018-04-15 06:36 | NUR ---
No requests, quiet night--reinforced with pt about fluid restriction 1200cc/day
[2018-04-15 06:46] LABS: CREATININE, serum 8.75 mg/dL (0.66-1.25)
--- NOTE | 2018-04-15 09:10 | NUR ---
Pt alert and oriented. Pt left arm restricted and bruit auscultated. Pt denies pain and states SOB is at baseline. Pt lung sounds diminished throughout. Pt sitting up in chair and BP rechecked and 142/70 in right forearm. Pt has call light in reach and breakfast present. Pt had dry skin on his bottom lip and pt picked at it and started to bleed. Pressure held and bleeding stopped. Pt reminded of fluid restriction. Pt am assessment completed and meds given with education. Pt denies needs at this time.
--- NOTE | 2018-04-15 10:46 | NUR ---
Spoke with Pauline BARBER and pt plans to be transferred to [facility] on Tuesday.
--- NOTE | 2018-04-15 19:05 | NUR ---
Pt stable this afternoon. Pt had family in this evening. Pt assisted with shower. Pt denies pain or SOB. Pt has call light in reach and denies needs.
--- NOTE | 2018-04-15 20:30 | NUR ---
Initial shift assessment done- states has a sore throat on the left side of throat- pt would like something for the pain-- will call for orders. o2 at 2L/nc for the night- pt states hes tired tonight- Fistula to left upper arm
[2018-04-16 03:37] VITALS: BP 124/24; PULSE 77; TEMP 98.3
--- NOTE | 2018-04-16 05:58 | NUR ---
Quiet night-- states Tylenol worked well for sore throat relief, VSS
[2018-04-16 06:26] LABS: BASO # 0.1 (0.0-0.2); BASO % 0.6 % (0.0-2.0); EOS # 0.1 (0.0-0.7); EOS % 1.7 % (0-4.0); GRAN # 5.7 (1.4-6.5); HEMOGLOBIN 10.1 g/dl (13.5-18.0); LYMPH # 1.4 (1.2-3.4); MEAN CELL VOLUME 87 fl (80.0-100.0); MEAN CORPUSCULAR HEMOGLOBIN 29 pg (27.0-31.0); MEAN CORPUSCULAR HGB CONC 33 g/dl (33.0-37.0); MEAN PLATELET VOLUME 11.4 fl (7.4-10.4); MONO # 0.9 (0.1-0.6); MONO % 11.3 % (1.7-9.3); PLATELET COUNT 263 K/mm3 (130-400); RED BLOOD COUNT 3.54 M/mm3 (4.20-5.60); REDCELL DISTRIBUTION WIDTH-CV 15.9 % (11.5-14.5)
[2018-04-16 06:27] LABS: HEMATOCRIT 30.7 % (42.0-52.0)
[2018-04-16 06:41] LABS: CALCIUM 9.6 mg/dL (8.4-10.2)
[2018-04-16 06:51] LABS: CREATININE, serum 11.31 mg/dL (0.66-1.25); POTASSIUM 4.4 mmol/L (3.4-5.0)
[2018-04-16 07:07] VITALS: BP 120/46; PULSE 77; TEMP 98.2
--- NOTE | 2018-04-16 10:13 | NUR ---
Pt alert and oriented. Pt had breakfast and reminded of fluid restriction of 1200 today. I/O put on white board for pt to see and keep track too. Pt had oxygen on through the night. Pt PICC patent and no redness or infiltration noted. Circumf 28cm. Pt denies pain. Pt has call light in reach and denies needs.
[2018-04-16 10:48] VITALS: BP 155/64; PULSE 71; TEMP 98.3
[2018-04-16 15:50] VITALS: BP 147/64; PULSE 73; TEMP 98.1
--- NOTE | 2018-04-16 16:11 | NUR ---
Pt alert and oriented. Pt up to chair most of afternoon. Pt back to bed now. Pt denies pain or SOB. Pt has call light in reach and denies needs at this time.
[2018-04-16 19:54] VITALS: BP 125/37; PULSE 77; TEMP 98.5
--- NOTE | 2018-04-16 20:15 | NUR ---
Shift assessment complete. Pt resting in bed, awake, a&o, cooperative c cares. Pt reports continued c/o pain to "throat": prn tylenol admin per pt request. Pt denies other c/o. PICC noted to R upper arm, patent, good blood return. HD AVF noted, strong bruit/thrill. Pt denies further needs. Call light in reach, will monitor.
[2018-04-16 23:07] VITALS: BP 105/32; PULSE 80; TEMP 99
[2018-04-17 03:42] VITALS: BP 123/48; PULSE 76; TEMP 98
[2018-04-17 05:59] LABS: BASO % 0.3 % (0.0-2.0); EOS # 0.2 (0.0-0.7); GRAN # 6.5 (1.4-6.5); GRAN % 71.6 % (42.2-75.2); LYMPH # 1.3 (1.2-3.4); LYMPH % 14.8 % (20.0-51.0); MEAN CELL VOLUME 87 fl (80.0-100.0); MEAN CORPUSCULAR HEMOGLOBIN 28 pg (27.0-31.0); MEAN CORPUSCULAR HGB CONC 32 g/dl (33.0-37.0); MEAN PLATELET VOLUME 11.3 fl (7.4-10.4); PLATELET COUNT 261 K/mm3 (130-400); RED BLOOD COUNT 3.55 M/mm3 (4.20-5.60); REDCELL DISTRIBUTION WIDTH-CV 15.8 % (11.5-14.5)
[2018-04-17 06:02] LABS: HEMATOCRIT 30.9 % (42.0-52.0)
[2018-04-17 06:11] LABS: CALCIUM 9.4 mg/dL (8.4-10.2); POTASSIUM 4.5 mmol/L (3.4-5.0)
[2018-04-17 06:34] LABS: CREATININE, serum 13.93 mg/dL (0.66-1.25)
[2018-04-17 08:19] VITALS: BP 100/24; PULSE 86; TEMP 98.2
--- NOTE | 2018-04-17 08:41 | NUR ---
Pt AAOX3. Resting comfortable watching morning news, breakfast has been ordered. Will monitor blood pressure closely - pt states "its a little on the low side", pt able to independently sit up in bed to take pills with no orthostatic dizzyness. Call light within reach.
--- NOTE | 2018-04-17 09:33 | NUR ---
Pt to dialysis at this time.
--- NOTE | 2018-04-17 10:57 | NUR ---
Patient dc to [facility] today for Rehab.
--- NOTE | 2018-04-17 13:45 | NUR ---
Pt returned to room 352 from dialysis. Family at bedside, updated on plan of care which included transfering to [facility] today, expressed understanding. Denies any other needs.
[2018-04-17 13:59] VITALS: BP 137/86; PULSE 91; TEMP 97.8
[2018-04-17 14:01] VITALS: BP 137/86; PULSE 91; TEMP 97.8
--- NOTE | 2018-04-17 15:23 | NUR ---
Pt to IPR at this time.
[2018-04-17] MEDS ORDERED: TENORMIN 2525 MG/TAB PO (17:20)
== END 2018-04-17 15:23 | DRG 870 ==
LOC: COL.ER 10:53 → ICU 13:07 → MEDICAL 04-12 12:40 → SURG 04-12 12:40 → ICU 04-12 12:40 → SURG 04-12 12:40 → MEDICAL 04-12 12:40 → SURG 04-12 13:16 → MEDICAL 04-17 15:23
PROVIDERS: Emergency Medicine; Internal Medicine; Internal Medicine Pulmonary Disease; ADMIT Internal Medicine Nephrology
PROC: 5A1955Z Respiratory Ventilation, Greater than 96 Consecutive Hours (ICD-10-PCS; principal; 2018-04-02)
PROC: 5A1D70Z Performance of Urinary Filtration, Intermittent, Less than 6 Hours Per Day (ICD-10-PCS; 2018-04-05)
PROC: 5A1D70Z Performance of Urinary Filtration, Intermittent, Less than 6 Hours Per Day (ICD-10-PCS; 2018-04-07)
PROC: 5A1D70Z Performance of Urinary Filtration, Intermittent, Less than 6 Hours Per Day (ICD-10-PCS; 2018-04-09)
PROC: 5A1D70Z Performance of Urinary Filtration, Intermittent, Less than 6 Hours Per Day (ICD-10-PCS; 2018-04-10)
PROC: 5A1D70Z Performance of Urinary Filtration, Intermittent, Less than 6 Hours Per Day (ICD-10-PCS; 2018-04-12)
PROC: 5A1D70Z Performance of Urinary Filtration, Intermittent, Less than 6 Hours Per Day (ICD-10-PCS; 2018-04-14)
PROC: 5A1D70Z Performance of Urinary Filtration, Intermittent, Less than 6 Hours Per Day (ICD-10-PCS; 2018-04-17)
DX: A41.9 Sepsis, unspecified organism (principal); J15.212 Pneumonia due to Methicillin resistant Staphylococcus aureus; R65.21 Severe sepsis with septic shock; J96.01 Acute respiratory failure with hypoxia; I21.A1 Myocardial infarction type 2; N18.6 End stage renal disease; I12.0 Hypertensive chronic kidney disease with stage 5 chronic kidney disease or end stage renal disease; I45.89 Other specified conduction disorders; E87.4 Mixed disorder of acid-base balance; E11.22 Type 2 diabetes mellitus with diabetic chronic kidney disease; Z99.2 Dependence on renal dialysis; D63.1 Anemia in chronic kidney disease; I27.20 Pulmonary hypertension, unspecified; I25.10 Atherosclerotic heart disease of native coronary artery without angina pectoris; Z87.891 Personal history of nicotine dependence
CPT/HCPCS: C1751; J0456; J0882; J1644; J1720; J1815; J2405; J2543; J2704; J2765; J3010; J3370; J3475; J7040; J7050; J7060; P9016; Q9967

== ENCOUNTER 2018-04-17 11:41 | Inpatient (IN) | payer MEDICARE, OTHER ==
[~2018-04-17] VITALS: Ht 172.7 cm; Wt 81.1 kg
[~2018-04-17 11:41] MED LIST changes: +PHOS LO; +PRINIVIL10 MG PO
--- NOTE | 2018-04-17 15:59 | NUR ---
Pt arrived to [facility], asked about his O2, pt was on RA prior to admission to [facility] per Shellie medical RN. VSS. Pt denies pain.
[2018-04-17 16:00] VITALS: BP 110/79; PULSE 99; TEMP 98.7
--- NOTE | 2018-04-17 16:21 | NUR ---
Spoke to medical nurse, Shellie, as pt did not have discharge orders paperwork. She will contact Dr. Dai and provide him with this nurse's number for f/u
[2018-04-17] MEDS ORDERED: TENORMIN 2525 MG/TAB PO (17:20)
[2018-04-17 17:33] VITALS: BP 110/79; PULSE 99; TEMP 98.7
--- NOTE | 2018-04-17 20:03 | NUR ---
Verified medication orders and discrepancies between meds on medical unit and ones ordered on IPR with Dr. Suhas FELIPE. Report to KANDIS Linn. Pt in bed with alarm on.
--- NOTE | 2018-04-18 03:20 | NUR ---
THE PT WAS BEDRESTING THE SHIFT BEGAN, TV ON. PLEASANT. VERBALIZED CONSERN FOR HIS CELL PHOMNE OPHTHALMOLOGY TECHNICIAN, THIS NURSE CALLED MEDICAL HE HAD BEEN THERE PRIOR TO BEING ADMITTED TO [facility]. THIS NURSE HAS NOT GOTTEN A REPLY. HIS BELONGINGS WERE UNPACKET TO THE CLOSET. HE HAS EXTREMELY DRY FLAKING SKIN. C\\O "PEPPERY" TASTE TO HIS PUDDING AT HS. ACCUCHECK WAS 122. HE IS A CGA WITH GAIT BELT AND WALKER TO AMBULATE. HE CALLED FOR ASSISTANCE TO THE BR, VERY SMALL VOID WITH A LOOSISH BRIGHT BROWN-YELLOW BM MED. HE DID OWN HYGIENE. TO BED, POSITIONED FOR COMFORT, HEELS BRIDGED. THE PTS TONGUE IS DRY AND REDDENED. POSSIBLY THRUSH, WILL HAVE DR. FARRELL IN THE AM. THE PT WANTS A SLEEPING PILL ORDERED FOR HIM ALSO, TOOK TYLENOL 650MG TONIGHT FOR C\\O MILD DISCOMFORT. APPEARS TO GET ADEQUATE SLEEP.
[2018-04-18 04:37] VITALS: BP 101/38; PULSE 86; TEMP 99.1
--- NOTE | 2018-04-18 17:19 | NUR ---
Patient resting in bed at this time eating his supper. Bed alarm on, call light in reach and slip proof socks on. Patient attended all therapies today. Tolerating diet well today. Will continue to monitor.
--- NOTE | 2018-04-18 18:00 | NUR ---
Patient resting in bed at this time, call light in reach, bed alarm on and slip proof socks on. Patient attended all therapies today. Tolerating diet well. He is on a fluid restriction to 2 Liters Q day. Patient was reminded to continue to drink throughout day to prevent dehydration, but just limit quantity. He voiced understanding. Patient received phoslo with food today as instructed. Denied pain this shift. Will continue to monitor.
[2018-04-18 18:51] VITALS: BP 138/47; PULSE 107; TEMP 98.3
--- NOTE | 2018-04-18 20:45 | NUR ---
Left message for dialysis nurse to return call tomorrow morning about labs and dialysis for patient.
--- NOTE | 2018-04-18 22:00 | NUR ---
HS meds all reviewed and given. Patient initially resting soundly in bed and awakened. Denies further needs.
--- NOTE | 2018-04-19 02:10 | NUR ---
Patient rests awake in bed. Denies needs at this time.
[2018-04-19 03:01] VITALS: BP 116/48; PULSE 80; TEMP 99
--- NOTE | 2018-04-19 03:06 | NUR ---
Patient awake and states "having stomach fullness". Offered protonix early and sprite given. O2 reapplied at 2lpnc due to sats 89% RA.
--- NOTE | 2018-04-19 05:32 | NUR ---
Patient rests quietly in bed. Respirations with ease.
[2018-04-19 07:07] LABS: BASO # 0.1 (0.0-0.2); BASO % 0.8 % (0.0-2.0); EOS # 0.2 (0.0-0.7); EOS % 2.2 % (0-4.0); GRAN # 5.6 (1.4-6.5); GRAN % 65.5 % (42.2-75.2); LYMPH # 1.8 (1.2-3.4); LYMPH % 21.2 % (20.0-51.0); MEAN CELL VOLUME 88 fl (80.0-100.0); MEAN CORPUSCULAR HGB CONC 33 g/dl (33.0-37.0); MEAN PLATELET VOLUME 10.8 fl (7.4-10.4); MONO # 0.8 (0.1-0.6); MONO % 9.8 % (1.7-9.3); PLATELET COUNT 252 K/mm3 (130-400); RED BLOOD COUNT 3.36 M/mm3 (4.20-5.60); REDCELL DISTRIBUTION WIDTH-CV 16.1 % (11.5-14.5)
[2018-04-19 07:13] LABS: HEMATOCRIT 29.5 % (42.0-52.0); HEMOGLOBIN 9.6 g/dl (13.5-18.0); MEAN CORPUSCULAR HEMOGLOBIN 29 pg (27.0-31.0)
[2018-04-19 07:19] LABS: CALCIUM 8.8 mg/dL (8.4-10.2); POTASSIUM 5.2 mmol/L (3.4-5.0)
[2018-04-19 07:33] LABS: CREATININE, serum 12.71 mg/dL (0.66-1.25)
--- NOTE | 2018-04-19 09:12 | NUR ---
Patient transported to dialysis room 18 for scheduled dialysis treatment.
--- NOTE | 2018-04-19 14:00 | NUR ---
CLAUDE ALEJO CALLED TO ADD HUMIDIFICATION TO O2 FOR PATIENT COMFORT. HE WAS REFUSING TO WEAR O2. SPO2 CHECKED IN ROOM 98% AT THIS TIME. LEFT HUMIDIFICATION IN ROOM IF HE NEEDS IT HS. HOWEVER, I DID NOT PLACE O2 AT THIS TIME.
--- NOTE | 2018-04-19 14:20 | NUR ---
Left message for Dr. Dai to return my call. Patient not feeling well following dialysis today.
[2018-04-19 15:00] VITALS: BP 103/36; PULSE 87; TEMP 97.4
--- NOTE | 2018-04-19 16:47 | NUR ---
SW and SW student met with patient to discuss IPR team conference notes and discharge planning. Patient lives in [place] with his Kayleigh. He is planning on returning home and doing outpatient PT. He does not know where he would like to do that but will talk to his . Patients PCP is Dr Philip and he obtains his medications at [facility]. Patient was agreeable to the discharge date next tuesday. SW will continue to follow to assist with discharge needs.
[2018-04-19 17:00] VITALS: BP 100/20; PULSE 86; TEMP 99.5
--- NOTE | 2018-04-19 18:00 | NUR ---
Patient not feeling well @ 1500. VS taken BP 103/36, P 87, O2 100% RA, T 97.4, R 16 - Dr. Dai called, see new orders for one time dose NS 250 ML bolus and VS taken 15 minutes after given report back to Dr. Dai. VS BP 100/20, P 86, O2 91%, T 99.5, R 18 - Dr. Dai called @ 1700, see new orders for one time dose of NS 250 ML bolus and VS taken 15 minutes after - then call with report of new set of vitals. VS taken BP 117/47, P 86 and call placed to Dr. Dai @ 1840. Received orders to hold Blood pressure meds for tonight. Patient did eat his supper and currently resting in recliner at this time. Call light in reach and reporting feeling a little better. Will continue to monitor.
[2018-04-19 18:26] VITALS: BP 117/47; PULSE 86
--- NOTE | 2018-04-19 20:30 | NUR ---
Patient rests in bed alert and oriented. HS meds reviewed and given. Denies pain.
--- NOTE | 2018-04-19 22:30 | NUR ---
Patient has been resting in bed. Respirations with ease.
--- NOTE | 2018-04-20 02:30 | NUR ---
Nurse handed patient his cepacol lozenges for sore throat. Denies further needs.
[2018-04-20 06:00] VITALS: BP 115/43; PULSE 77; TEMP 98.7
--- NOTE | 2018-04-20 06:00 | NUR ---
Awake and states has been since around 4am. Denies needs. States throat no longer hurting.
--- NOTE | 2018-04-20 08:04 | NUR ---
Report from KANDIS Escobedo. Pt on contact isolatn. Bed wt 81.6 kg. Alert and pleasant. Glasses in place. O2 @ 1.5L/NC
--- NOTE | 2018-04-20 14:00 | NUR ---
PICC intact right upper arm. With sterile technique right upper arm PICC dressing change done with insertion site cleansed with ChloraPrep 1, chlorhexidine impregnated disc applied, skin prep, StatLock, and Tegaderm applied. No signs or symptoms of IV complications noted. No concerns voiced. We'll continue to monitor.
[2018-04-20 15:52] VITALS: BP 78/36; PULSE 88; TEMP 99.1
--- NOTE | 2018-04-20 16:19 | NUR ---
Per Dr. Mendiola, make order to take pt's BP in right forearm, distal to PICC line, as these BP's will be more reliable than in leg. Enc pt to drink more fluids for low BP, may exceed 2L fluid restriction today. Report symptoms of low BP, dizziness, AMS. DC atenolol. Dr. Mendiola is taking call for Dai, contact Marlena if needed. He will adjust dialysis orders tomorrow.
[2018-04-20 16:58] VITALS: BP 114/51; PULSE 84
--- NOTE | 2018-04-20 20:27 | NUR ---
See RFA BP. Pt denying s/s low BP. Pivot txf to bed from chair at supper, alarm on, call light in reach. Denies pain. Enc fluids. Report to KANDIS Jordan.
--- NOTE | 2018-04-20 21:00 | NUR ---
PT RESTING IN BED. PLEASANT AND COOPERATIVE. O2 N/C AT BEDSIDE. O2 SAT WNL. ENC PT TO DRINK EXTRA FLUIDS D/T HYPOTENSION. OPEN LINEAR LESION APPROX 1.5CM TO COCCYX. NO DRAINAGE. SORE TO TOUCH. APPLIED MEPILEX. PT REPORT NUMBNESS TO BILAT HANDS AND FEET ALWAYS FEEL COLD. BILAT LE ARE WARM TO TOUCH. PPP. CALL LIGHT IN REACH. BED ALARM SET/. PT WISHES BILAT BEDRAILS UP.
--- NOTE | 2018-04-21 01:00 | NUR ---
NASAL SWABS SENT TO LAB TO R/O #1 NEG MRSA. BP 110/51. HRR.
[2018-04-21 01:02] VITALS: BP 110/51; PULSE 72
[2018-04-21 03:59] VITALS: BP 129/59; PULSE 70; TEMP 98.7
--- NOTE | 2018-04-21 07:46 | NUR ---
Report from KANDIS Jordan. Pt on contact isolation. Given phoslo with start of meal. To chair with alarm on, transferred OOB with walker, CGA. Yellow gripper socks in place. Lotioned feet d/t c/o burning pain in left great toe. Edu about moisturizing and DM neuopathy. Pt removed O2. Alert, denies dizziness.
--- NOTE | 2018-04-21 08:27 | NUR ---
Pt to dialysis via wheelchair to room 18 with [facility] dialysis nurse.
[2018-04-21 09:02] LABS: RED BLOOD COUNT 3.51 M/mm3 (4.20-5.60)
[2018-04-21 09:03] LABS: BASO % 0.5 % (0.0-2.0); EOS # 0.2 (0.0-0.7); EOS % 2.8 % (0-4.0); GRAN # 4.9 (1.4-6.5); LYMPH % 25.2 % (20.0-51.0); MEAN CELL VOLUME 88 fl (80.0-100.0); MEAN CORPUSCULAR HEMOGLOBIN 29 pg (27.0-31.0); MEAN CORPUSCULAR HGB CONC 32 g/dl (33.0-37.0); MEAN PLATELET VOLUME 10.6 fl (7.4-10.4); MONO # 0.6 (0.1-0.6); MONO % 8.1 % (1.7-9.3); PLATELET COUNT 239 K/mm3 (130-400); REDCELL DISTRIBUTION WIDTH-CV 15.9 % (11.5-14.5)
[2018-04-21 09:06] LABS: HEMATOCRIT 30.9 % (42.0-52.0)
[2018-04-21 09:12] LABS: CALCIUM 8.3 mg/dL (8.4-10.2)
[2018-04-21 09:13] LABS: CREATININE, serum 12.3 mg/dL (0.66-1.25)
--- NOTE | 2018-04-21 13:17 | NUR ---
Pt returned from dialysis 1250 per wheelchair with CLAUDE Gillette. Pt served lunch and meds with food.
[2018-04-21 17:59] VITALS: BP 138/65; PULSE 82; TEMP 98.9
--- NOTE | 2018-04-21 18:20 | NUR ---
Pt in bed, wanted all 4 rails up to keep his blankets in place, alarm on, call light in reach. Denies pain, no nausea or dizziness. Pleasant. Fistula site CDI with gauze and paper tape dressings.
--- NOTE | 2018-04-21 20:00 | NUR ---
PT RESTING IN BED. VERY FATIGUED. ORIENTED. DENIES PAIN AT THIS TIME. CALL LIGHT IN REACH. BED ALARM SET.
--- NOTE | 2018-04-22 | NUR ---
PT C/O INDIGESTION. VSS. ENC ELEVATE HOB. FEELS LIKE HE NEEDS TO BELCH. PROVIDED A SPRITE ZERO.
[2018-04-22 05:49] VITALS: BP 128/75; PULSE 75; TEMP 98.2
--- NOTE | 2018-04-22 09:00 | NUR ---
PT IS ABLE TO MOVE IN AND OUT OF BED WITH NO ASSIST. PT TAKES MEDS EASILY WITH WATER. INTAKE THIS AM IS 120 CC OF JUICE. WATER AT BEDSIDE NOT TOUCHED.
--- NOTE | 2018-04-22 12:16 | NUR ---
PICC LINE DRESSING IS CDI. BOTH LUMENS FLUSH VERY HARD BUT BOTH HAVE BLOOD RETURN. MEDS GIVEN PER ORDER. PT HAS BEEN MADE MOD I IN HIS ROOM, ALCIDES MCCONNELL. NO ALARMS MANAGER POWER LIGHT IN REACH.
--- NOTE | 2018-04-22 15:32 | NUR ---
MADE OUT HIS MENU. REFUSED HIS NEHPRO SNACK. WATCHIG TV WITH HIS .
[2018-04-22 16:39] VITALS: BP 141/69; PULSE 84; TEMP 37
--- NOTE | 2018-04-22 20:30 | NUR ---
PT RESTING IN BED. SLEEPING. DID NOT GET ANY SLEEP LAST NIGHT. MOD I IN ROOM WITH WALKER. PT DENIES PAIN. JUST VERY SLEEPY FROM PREVIOUS NIGHTS INSOMNIA.
[2018-04-23 04:40] VITALS: BP 140/70; PULSE 88; TEMP 98.5
--- NOTE | 2018-04-23 14:09 | NUR ---
Per 's request, removed [facility] d/t complications with e-scripts in the past. She prefers paper prescriptions to drop off.
[2018-04-23 17:14] VITALS: BP 143/61; PULSE 85; TEMP 98.6
[2018-04-23 18:06] VITALS: BP 131/59; PULSE 79; TEMP 99.2
--- NOTE | 2018-04-23 20:22 | NUR ---
Pt angela Mod I in rm w/ fww. No complaints, stable. Report to KANDIS Linn.
--- NOTE | 2018-04-24 01:31 | NUR ---
THE PT WAS BEDRESTING WITH TV ON AT ROUNDS, ACCUCHECK WAS 129, PT HAD HS SNACK AFTER TEACHING THAT HE SHOULD HAVE ONE. HE IS UP MODIFIED INDEPENDENT IN HIS ROOM WITH WALKER. HE VERBALIZED THAT HIS WAS IN TO VISIT THE PAST 2 DAYS AND THAT SHE TOLD HIM HE CAN'T GO TO WORK ANYMORE. HE STATED THAT HE ISN'T SURE HOW IT'LL BE TO BE HOME ALL DAY WITH HER AND THE GREAT GRANDCHILDREN THAT SHE BABYSITS. 2 ARE IN SCHOOL WITH JUST THE 2 1\2 YEAR OLD AT HOME. HE STATED THAT WORK WAS ALWAYS A GOOD BREAK FROM BEING AT HOME. ENCOURAGEMENT GIVEN. HE ASKED THAT LIGHTS BE TURNED OUT AT 2200.
--- NOTE | 2018-04-24 04:38 | NUR ---
THE PT IS BEDRESTING WITH EYES CLOSED, APPEARS TO GET ADEQUATE SLEEP.
[2018-04-24 05:35] VITALS: BP 133/49; PULSE 86; TEMP 98.2
--- NOTE | 2018-04-24 07:00 | NUR ---
Report received from KANDIS Linn. Pt in bed sleeping, awakens easily to discuss lab draws, breakfast, and phoslo pill prior to going to dialysis. Will continue to monitor.
[2018-04-24 07:25] LABS: BASO % 0.4 % (0.0-2.0); EOS # 0.2 (0.0-0.7); EOS % 3.4 % (0-4.0); GRAN # 3.9 (1.4-6.5); GRAN % 59.1 % (42.2-75.2); LYMPH # 1.9 (1.2-3.4); MEAN CELL VOLUME 89 fl (80.0-100.0); MEAN CORPUSCULAR HGB CONC 33 g/dl (33.0-37.0); MEAN PLATELET VOLUME 9.8 fl (7.4-10.4); MONO # 0.6 (0.1-0.6); MONO % 8.7 % (1.7-9.3); PLATELET COUNT 195 K/mm3 (130-400); RED BLOOD COUNT 3.18 M/mm3 (4.20-5.60); REDCELL DISTRIBUTION WIDTH-CV 15.9 % (11.5-14.5)
[2018-04-24 07:27] LABS: HEMATOCRIT 28.2 % (42.0-52.0); HEMOGLOBIN 9.2 g/dl (13.5-18.0); MEAN CORPUSCULAR HEMOGLOBIN 29 pg (27.0-31.0)
[2018-04-24 07:38] LABS: CALCIUM 8.1 mg/dL (8.4-10.2)
[2018-04-24 07:59] LABS: CREATININE, serum 12.91 mg/dL (0.66-1.25)
--- NOTE | 2018-04-24 08:00 | NUR ---
Assessment charted pt went down for dialysis via w/c with [facility] staff. PRN headache medication given, BP stable. pt wants to take remaining am meds after dialysis. will continue to monitor and await return.
--- NOTE | 2018-04-24 12:00 | NUR ---
Pt returned from dialysis at this time via w/c with [facility] staff. Eating lunch, denies needs, will continue to monitor.
[2018-04-24 16:37] VITALS: BP 110/68; PULSE 94; TEMP 98.4
--- NOTE | 2018-04-24 18:02 | NUR ---
Pt has done well this afternoon. Denies pain, headache resolved from pre-dialysis. Replaced sacral mepilex dressing from "split in upper crack", no open skin area noted but re applied for comfort. Continue contact precautions. Per Dr. Mendiola, there is no need for PICC line in [facility]. Will pass on to nightshift to address before discharge tomorrow. Pt remains Mod I in room, will give bedside shift report to nightshift nurse who will resume car.e
--- NOTE | 2018-04-25 01:33 | NUR ---
THE PT WAS UP TO THE BR AND HAD A BM. WAS JUST RETURNING TO BED SHIFT REPORT DONE. VERBALIZED OF THE DAYS EVENTS. ANTICIPATES D\C TO HOME TOMORROW, ASKED ABOUT WHAT TIME, PROBABLY LATE AM OR EARLY PM. HE IS MODIFIED INDEPEDENT IN HIS ROOM WITH STEADY GAIT, GOOD ATTENTION TO SAFETY AD SURROUNDINGS.
[2018-04-25 06:33] VITALS: BP 131/64; PULSE 79; TEMP 98.5
--- NOTE | 2018-04-25 08:00 | NUR ---
Patient resting in recliner at this time eating his breakfast. He is preparing for discharge later this afternoon when daughter gets off work to pick him up. Tolerating diet well today, denies pain. Will continue to monitor.
--- NOTE | 2018-04-25 10:20 | NUR ---
SW and SW student met with patient to present IM and verbally discuss the contents. Patient was agreeable and signed the form. Denied copy and original placed in chart. Patient is dc home today with spouse and outpatient PT at [facility]. Nurse informed of patients choice and will schedule the appointment. He did not qualify for home O2 but reports he has some already at home if he needs it. No other concerns at this time.
--- NOTE | 2018-04-25 10:40 | NUR ---
Initial visit; Patient thanked Recreational Director for wishing him well and offering encouragement and God's blessings.
--- NOTE | 2018-04-25 13:20 | NUR ---
SUNIL talked with patients who reports they need a walker and she would like to obtain it from [facility]. SUNIL faxed clinical information and informed patients they would need to get it there. She understood and reported they could do that.
[2018-04-25] MEDS ORDERED: PHOSLO667 MG PO (13:53)
[2018-04-25] MEDS ORDERED: SENSIPAR60 MG PO (13:53)
--- NOTE | 2018-04-25 14:00 | NUR ---
Call placed to Dr. Mendiola for clarification on Beta Daniel being restarted upon patient discharge per request of Dr. Lay. Received return call from Dr. Mendiola nurse stating that Dr. Mendiola did not want to restart the Beta Daniel at this time and wanted patient to stay on the same medications that he was on while in the hospital. This was communicated to Dr. Lay. He voiced understanding and beta daniel was left off the discharge med list. Dr. Mendiola nurse also stated that Dr. Mendiola would be seeing patient on 05/11 at 2:[address] Dai on 05/04. Patient was updated on this and voiced understanding. This nurse updated patients discharge papers to reflect this change prior to them leaving.
--- NOTE | 2018-04-25 16:13 | NUR ---
Patient Health Summary, Discharge Summary, and Home Meds printed and reviewed with patient and . Stressed importance of follow up appointments. Reviewed medications, provided printed prescription for Phoslo Gelcaps and Sensipar as reported that he had enough refills for all other medications. Belongings gathered by Sinan including dentures, glasses, watch, quilt, cellphone, lead data architect and clothes. Patient transported via wheelchair by Sinan and seatbelted for ride home with daughter. Patient and daughter denied questions.
== END 2018-04-25 15:20 | disposition home or self-care (01) | DRG 91 ==
PROVIDERS: Internal Medicine; ADMIT Internal Medicine
PROC: 5A1D70Z Performance of Urinary Filtration, Intermittent, Less than 6 Hours Per Day (ICD-10-PCS; principal; 2018-04-19)
PROC: 5A1D70Z Performance of Urinary Filtration, Intermittent, Less than 6 Hours Per Day (ICD-10-PCS; 2018-04-21)
PROC: 5A1D70Z Performance of Urinary Filtration, Intermittent, Less than 6 Hours Per Day (ICD-10-PCS; 2018-04-24)
DX: G72.81 Critical illness myopathy (principal); J15.212 Pneumonia due to Methicillin resistant Staphylococcus aureus; A41.9 Sepsis, unspecified organism; R65.21 Severe sepsis with septic shock; J96.01 Acute respiratory failure with hypoxia; N18.6 End stage renal disease; I13.2 Hypertensive heart and chronic kidney disease with heart failure and with stage 5 chronic kidney disease, or end stage renal disease; I50.32 Chronic diastolic (congestive) heart failure; N25.81 Secondary hyperparathyroidism of renal origin; E11.22 Type 2 diabetes mellitus with diabetic chronic kidney disease; Z99.2 Dependence on renal dialysis; E11.40 Type 2 diabetes mellitus with diabetic neuropathy, unspecified; D63.1 Anemia in chronic kidney disease; E78.5 Hyperlipidemia, unspecified; I27.20 Pulmonary hypertension, unspecified; Z87.891 Personal history of nicotine dependence
CPT/HCPCS: 99222-AI; 99231-AI; 99239; J1644; J1815; J7050

== ENCOUNTER 2018-06-01 06:01 | Outpatient (CLI) | payer MEDICARE, OTHER ==
[~2018-06-01] VITALS: Ht 172.7 cm; Wt 81.4 kg
[2018-06-01] VITALS (9 sets, daily range): BP systolic 140–183; BP diastolic 80–86; PULSE 90–99; TEMP 98.3
[~2018-06-01 06:01] MED LIST changes: +PHOSLO667 MG PO; +TENORMIN 2525 MG/TAB PO
[2018-06-01] MEDS ORDERED: PHOS LO PO (07:36)
[2018-06-01] MEDS ORDERED: SENSIPAR60 MG PO (07:38)
[2018-06-01] MEDS ORDERED: RENVELA800 MG PO (07:41)
[2018-06-01] MEDS ORDERED: NORVASC 10MG10 MG PO (07:41)
[2018-06-01] MEDS ORDERED: VITAMIN C500 MG PO (07:42)
[2018-06-01] MEDS ORDERED: TYLENOL 325MG325 MG PO (07:42)
--- NOTE | 2018-06-01 08:20 | NUR ---
pt to procedure.
--- NOTE | 2018-06-01 08:46 | NUR ---
ALL MEDICATIONS GIVEN WITH VERBAL ORDER AND READBACK WITH MD. SEE MERGE FOR ALL MEDICATION ADMIN TIMES. SEE MERGE FOR ALL RASS ASSESSMENTS DURING AND POST PROCEDURE.
--- NOTE | 2018-06-01 12:12 | NUR ---
Discharge instructions given to pt.Pt verbalizes understanding.INT removed,catheter tip intact.Pt waiting on ride home.Will continue to monitor.
--- NOTE | 2018-06-01 13:00 | NUR ---
Pt escorted out by this nurse.
== END 2018-06-01 13:26 | disposition home or self-care (01) ==
LOC: COL.CAR 06:01
DX: T82.868A Thrombosis due to vascular prosthetic devices, implants and grafts, initial encounter (principal); Z79.02 Long term (current) use of antithrombotics/antiplatelets; Z79.82 Long term (current) use of aspirin; Z87.891 Personal history of nicotine dependence
CPT/HCPCS: C1769; J1644; J2250; J3010; Q9967

== ENCOUNTER 2018-06-01 19:33 | Emergency (ER) | payer MEDICARE, OTHER ==
[~2018-06-01] VITALS: Ht 172.7 cm; Wt 79.5 kg
[~2018-06-01 19:33] MED LIST changes: +TYLENOL 325MG325 MG PO
[2018-06-01 19:43] VITALS: PULSE 102; TEMP 99.7
[2018-06-01 21:11] LABS: BASO % 0.1 % (0.0-2.0); EOS # 0.1 (0.0-0.7); GRAN # 4.7 (1.4-6.5); GRAN % 69.7 % (42.2-75.2); LYMPH # 1.1 (1.2-3.4); MEAN CELL VOLUME 92 fl (80.0-100.0); MEAN CORPUSCULAR HGB CONC 30 g/dl (33.0-37.0); MEAN PLATELET VOLUME 9.8 fl (7.4-10.4); MONO # 0.9 (0.1-0.6); MONO % 12.9 % (1.7-9.3); PLATELET COUNT 132 K/mm3 (130-400); RED BLOOD COUNT 3.19 M/mm3 (4.20-5.60); REDCELL DISTRIBUTION WIDTH-CV 16.4 % (11.5-14.5)
[2018-06-01 21:21] LABS: ALBUMIN 3.5 gm/dL (3.5-5.0); BILIRUBIN,TOTAL 0.5 mg/dL (0.0-1.0); CALCIUM 9.7 mg/dL (8.4-10.2); POTASSIUM 3.9 mmol/L (3.4-5.0); TOTAL PROTEIN 7.7 gm/dL (6.4-8.2)
[2018-06-01 21:28] LABS: HEMATOCRIT 29.4 % (42.0-52.0); HEMOGLOBIN 8.9 g/dl (13.5-18.0); MEAN CORPUSCULAR HEMOGLOBIN 28 pg (27.0-31.0)
[2018-06-01 21:32] LABS: CREATININE, serum 8.05 mg/dL (0.66-1.25); TROPONIN-I 0.062 ng/mL (0.000-0.035)
[2018-06-02 01:50] VITALS: BP 146/73
== END 2018-06-02 01:35 | disposition short-term general hospital (02) ==
LOC: COL.ER 19:33
PROVIDERS: Emergency Medicine
DX: J18.1 Lobar pneumonia, unspecified organism (principal); I25.10 Atherosclerotic heart disease of native coronary artery without angina pectoris; J44.9 Chronic obstructive pulmonary disease, unspecified; E11.22 Type 2 diabetes mellitus with diabetic chronic kidney disease; N18.6 End stage renal disease; D64.9 Anemia, unspecified; Z99.2 Dependence on renal dialysis; Z79.02 Long term (current) use of antithrombotics/antiplatelets; Z79.899 Other long term (current) drug therapy; Z87.891 Personal history of nicotine dependence
CPT/HCPCS: J1956; J2543; J3370; J7050

== ENCOUNTER 2018-09-30 22:36 | Inpatient (IN) | payer MEDICARE, OTHER ==
[~2018-09-30] VITALS: Ht 172.7 cm; Wt 75.7 kg
[2018-09-30 23:13] LABS: BASO % 0.1 % (0.0-2.0); EOS # 0.1 (0.0-0.7); EOS % 0.5 % (0-4.0); GRAN # 8.3 (1.4-6.5); LYMPH # 0.9 (1.2-3.4); LYMPH % 9.2 % (20.0-51.0); MEAN CELL VOLUME 83 fl (80.0-100.0); MEAN CORPUSCULAR HGB CONC 30 g/dl (33.0-37.0); MEAN PLATELET VOLUME 9.6 fl (7.4-10.4); MONO # 0.5 (0.1-0.6); MONO % 5.3 % (1.7-9.3); PLATELET COUNT 205 K/mm3 (130-400); RED BLOOD COUNT 3.07 M/mm3 (4.20-5.60); REDCELL DISTRIBUTION WIDTH-CV 19.8 % (11.5-14.5)
[2018-09-30 23:14] LABS: HEMATOCRIT 25.5 % (42.0-52.0); HEMOGLOBIN 7.7 g/dl (13.5-18.0); MEAN CORPUSCULAR HEMOGLOBIN 25 pg (27.0-31.0)
[2018-09-30 23:23] LABS: ALANINE AMINOTRANSFERASE < 6 U/L (21-72); ALKALINE PHOSPHATASE 119 U/L (50-136); ANION GAP 18 mmol/L (7-16); AST,SGOT 17 U/L (15-37); BILIRUBIN,TOTAL 0.3 mg/dL (0.0-1.0); BLOOD UREA NITROGEN 90 mg/dL (9-20); CARBON DIOXIDE 22 mmol/L (22-30); CHLORIDE 100 mmol/L (98-107); GLUCOSE 146 mg/dL (74-106); MAGNESIUM 2.8 mg/dL (1.6-2.3); PHOSPHOROUS 6.6 mg/dL (2.5-4.5); SODIUM 141 mmol/L (137-145)
[2018-09-30 23:32] LABS: CREATININE, serum 17.22 (0.66-1.25)
[2018-09-30 23:42] LABS: TROPONIN-I 0.242 ng/mL (0.000-0.035)
[2018-09-30 23:44] LABS: INR 0.9 (0.8-3.0); PROTHROMBIN TIME 10.4 SECONDS (9.7-12.8)
[2018-09-30 23:46] LABS: PARTIAL THROMBOPLASTIN TIME 26.4 SECONDS (26.0-37.0)
[2018-10-01] VITALS (527 sets, daily range): BP systolic 121–172; BP diastolic 41–92; PULSE 88–99; TEMP 97.5–98.4; O2SAT 77–98
[2018-10-01 06:58] LABS: BASO % 0.1 % (0.0-2.0); EOS % 0.4 % (0-4.0); GRAN # 6.7 (1.4-6.5); GRAN % 78.2 % (42.2-75.2); LYMPH # 1.2 (1.2-3.4); LYMPH % 14.2 % (20.0-51.0); MEAN CELL VOLUME 83 fl (80.0-100.0); MEAN CORPUSCULAR HGB CONC 31 g/dl (33.0-37.0); MEAN PLATELET VOLUME 10.2 fl (7.4-10.4); MONO # 0.6 (0.1-0.6); MONO % 6.4 % (1.7-9.3); PLATELET COUNT 203 K/mm3 (130-400); RED BLOOD COUNT 2.87 M/mm3 (4.20-5.60); REDCELL DISTRIBUTION WIDTH-CV 19.6 % (11.5-14.5)
[2018-10-01 07:07] LABS: ALBUMIN 3.7 gm/dL (3.5-5.0); CALCIUM 9.6 mg/dL (8.4-10.2); PHOSPHOROUS 7.3 mg/dL (2.5-4.5)
[2018-10-01 07:17] LABS: CREATININE, serum 17.61 (0.66-1.25)
[2018-10-01 07:19] LABS: POTASSIUM 6.2 mmol/L (3.4-5.0)
[2018-10-01 07:27] LABS: HEMATOCRIT 23.9 % (42.0-52.0); HEMOGLOBIN 7.3 g/dl (13.5-18.0); MEAN CORPUSCULAR HEMOGLOBIN 25 pg (27.0-31.0)
--- NOTE | 2018-10-01 10:33 | NUR ---
Patient lives at home with his (Lara Elder") in [place], [place] and plans to return home upon discharge. Patient is retired and is mostly independent with his daily living activities, and he does not have any durable medical equipment anticipated needs at this time. Patient has renal failure and receives dialysis Tuesday, Tuesday and Tuesday. Patient's primary care physician is Dr. Leo Philip and he also receives medical care from Dr. Edwar Mendiola, his pharmacy is [facility], and he does have advance directives for healthcare completed. His living will primary executor is his , Lara Zheng, and secondary his executor is his daughter, Khushboo Jacinto.
[2018-10-01] MEDS ORDERED: RENVELA800 MG PO (11:53)
[2018-10-01] MEDS ORDERED: TRELEGY ELLIPT1 EACH IH (11:54)
[2018-10-01] MEDS ORDERED: ROCALTROL0.5 MCG PO (12:00)
--- NOTE | 2018-10-01 13:41 | NUR ---
REPORT GIVEN TO KANDIS RIVERA ON MEDICAL UNIT.
--- NOTE | 2018-10-01 18:27 | NUR ---
Patient is sitting up on side of bed visiting with daughter and granddaughter. Denies pain. Is in good humor. Call light and personal items are within reach.
--- NOTE | 2018-10-01 20:45 | NUR ---
Shift assessment complete. Pt resting in bed, awake, a&o, cooperative c cares. Pt denies pain or other c/o at this time. INT patent. HD AVF noted s complication. HD graft to RUE s complication. HD cath to L chest s comlication. O2 per NC. Pt denies further needs. Call light in reach, will monitor.
[2018-10-02] VITALS (7 sets, daily range): BP systolic 125–158; BP diastolic 38–84; PULSE 87–99; TEMP 97.9–98.6
[2018-10-02 07:06] LABS: BASO % 0.3 % (0.0-2.0); EOS # 0.1 (0.0-0.7); EOS % 1.9 % (0-4.0); GRAN # 5.2 (1.4-6.5); GRAN % 71.7 % (42.2-75.2); LYMPH # 1.3 (1.2-3.4); LYMPH % 17.6 % (20.0-51.0); MEAN CELL VOLUME 85 fl (80.0-100.0); MEAN CORPUSCULAR HGB CONC 30 g/dl (33.0-37.0); MONO # 0.6 (0.1-0.6); MONO % 7.8 % (1.7-9.3); PLATELET COUNT 172 K/mm3 (130-400); RED BLOOD COUNT 2.76 M/mm3 (4.20-5.60)
[2018-10-02 07:09] LABS: HEMATOCRIT 23.5 % (42.0-52.0); HEMOGLOBIN 7.1 g/dl (13.5-18.0); MEAN CORPUSCULAR HEMOGLOBIN 26 pg (27.0-31.0)
[2018-10-02 07:45] LABS: ALBUMIN 3.5 gm/dL (3.5-5.0); CALCIUM 8.6 mg/dL (8.4-10.2); PHOSPHOROUS 7.1 mg/dL (2.5-4.5)
[2018-10-02 07:49] LABS: CREATININE, serum 11.74 (0.66-1.25)
--- NOTE | 2018-10-02 08:20 | NUR ---
Dialysis called for pt. Pt in room, denies any pain. Completed morning assessment. No report given for pt blood sugar, looked at labs and noted it was low. Crackers and orange juice given. Pt blood sugar went up to 160. Medications given, morning assessment completed. Pt taken off floor to dialysis.
--- NOTE | 2018-10-02 12:45 | NUR ---
Received report from Dialysis, removed 2.1 from pt. Dialysis was ended 28 min early due to leg cramping. Dr. Mendiola was informed. Pt back in room, helped pt order lunch. Denies any other needs at this time.
--- NOTE | 2018-10-02 18:44 | NUR ---
Pt had tunneled catheter taken out, pt thought he was going home tonight. Let pt know he was going to be here one more day. Report given to Anastasia MARQUIS.
--- NOTE | 2018-10-02 20:45 | NUR ---
Shift assessment complete. Pt resting in bed, awake, a&o, cooperative c cares. Pt denies pain or other c/o. INT patent. Pt denies needs. Call light in reach, will monitor.
--- NOTE | 2018-10-03 05:21 | NUR ---
Pt resting in bed, condition unchanged. Pt has rested well this shift c very few needs. Denies needs at this time. Call light in reach.
[2018-10-03 06:16] LABS: BASO % 0.1 % (0.0-2.0); EOS # 0.1 (0.0-0.7); EOS % 1.9 % (0-4.0); GRAN % 68.4 % (42.2-75.2); LYMPH # 1.5 (1.2-3.4); LYMPH % 20.4 % (20.0-51.0); MEAN CELL VOLUME 85 fl (80.0-100.0); MEAN CORPUSCULAR HGB CONC 30 g/dl (33.0-37.0); MEAN PLATELET VOLUME 9.3 fl (7.4-10.4); MONO # 0.6 (0.1-0.6); MONO % 8.7 % (1.7-9.3); PLATELET COUNT 182 K/mm3 (130-400); RED BLOOD COUNT 2.95 M/mm3 (4.20-5.60); REDCELL DISTRIBUTION WIDTH-CV 19.9 % (11.5-14.5)
[2018-10-03 06:26] LABS: ALBUMIN 3.5 gm/dL (3.5-5.0); CALCIUM 8.8 mg/dL (8.4-10.2); PHOSPHOROUS 5.9 mg/dL (2.5-4.5); POTASSIUM 4.7 mmol/L (3.4-5.0)
[2018-10-03 06:33] LABS: CREATININE, serum 10.27 (0.66-1.25)
[2018-10-03 06:59] LABS: HEMATOCRIT 25.2 % (42.0-52.0); HEMOGLOBIN 7.5 g/dl (13.5-18.0); MEAN CORPUSCULAR HEMOGLOBIN 25 pg (27.0-31.0)
[2018-10-03 07:44] VITALS: BP 144/49; PULSE 89; TEMP 98.4
--- NOTE | 2018-10-03 07:55 | NUR ---
Pt sitting up in bed, denies any shortness of breath or pain. Left chest where the dialysis catheter was removed is clean dry and intact with no bleeding. Completed morning assessment. Graft in right arm covered with bandage, clean dry and bruit was ausculatated. Pt is eager to discharge. Let him know Dr. Mendiola will be in around noon. Breakfast try in room. Denies any needs at this time. Call light in reach.
[2018-10-03] MEDS ORDERED: NORVASC 5MG5 MG/TAB PO (11:28)
--- NOTE | 2018-10-03 11:55 | NUR ---
Pt sitting in chair, still denies any shortness of breath. Still complaing of coldness to right hand, felt that it was cooler than left. Dr. Mendiola is following. Pt waiting to be discharged, let him know we are working on it now.
--- NOTE | 2018-10-03 11:55 | NUR ---
The patient is to discharge back home with his today, 10/03. SW presented and explained the IM form to the patient. The patient verbalized understanding, signed, and he was provided a copy. No additional needs at this time.
--- NOTE | 2018-10-03 13:30 | NUR ---
Discharge paperwork given, questions asked and answered, all paperwork signed. LH INT removed, no redness or swelling noted. All belongings gathered and pt escorted out via wheelchair by [facility] staff.
== END 2018-10-03 13:45 | disposition home or self-care (01) | DRG 291 ==
LOC: COL.ER 22:36 → ICU 23:56 → MEDICAL 10-01 14:46
PROVIDERS: Emergency Medicine; ADMIT Internal Medicine Nephrology
PROC: 5A1D70Z Performance of Urinary Filtration, Intermittent, Less than 6 Hours Per Day (ICD-10-PCS; principal; 2018-10-01)
PROC: 02PYX3Z Removal of Infusion Device from Great Vessel, External Approach (ICD-10-PCS; 2018-10-02)
DX: I13.2 Hypertensive heart and chronic kidney disease with heart failure and with stage 5 chronic kidney disease, or end stage renal disease (principal); N18.6 End stage renal disease; J44.9 Chronic obstructive pulmonary disease, unspecified; I25.10 Atherosclerotic heart disease of native coronary artery without angina pectoris; I50.9 Heart failure, unspecified; N40.0 Benign prostatic hyperplasia without lower urinary tract symptoms; E11.22 Type 2 diabetes mellitus with diabetic chronic kidney disease; D63.1 Anemia in chronic kidney disease; E87.5 Hyperkalemia; I27.20 Pulmonary hypertension, unspecified; Z79.82 Long term (current) use of aspirin; Z99.2 Dependence on renal dialysis; Z79.02 Long term (current) use of antithrombotics/antiplatelets; Z87.891 Personal history of nicotine dependence
CPT/HCPCS: J1644; J1940; J7030

== ENCOUNTER → 2018-10-10 | Outpatient (CLI) | payer MEDICARE, OTHER ==
--- NOTE | 2018-10-05 13:37 | NUR ---
PT TO BRING MED LIST WITH HIM TO PROCEDURE. SPOKE TO AND PT IS GONE TO APPT IN [place].
[~2018-10-10] VITALS: Ht 172.7 cm; Wt 77.9 kg
[~2018-10-10] MED LIST changes: +NORVASC 5MG5 MG/TAB PO; +ROCALTROL0.5 MCG PO
[2018-10-10 09:49] VITALS: BP 169/84; PULSE 88
--- NOTE | 2018-10-10 11:07 | NUR ---
procedure cancelled due to not enough fluid to remove
== END ==
LOC: COL.RAD 10-05 13:30
DX: J90 Pleural effusion, not elsewhere classified (principal)

== ENCOUNTER 2018-11-01 06:48 | Inpatient (IN) | payer MEDICARE, OTHER ==
[~2018-11-01] VITALS: Ht 172.7 cm; Wt 80.4 kg
[2018-11-01 07:07] VITALS: BP 150/70; PULSE 84; TEMP 98.2
--- NOTE | 2018-11-01 07:15 | NUR ---
Pt arrived to floor at this time with daughter, will orient to room and get prepped for procedure. Will cotninue to monitor.
[2018-11-01 07:49] LABS: BASO % 0.3 % (0.0-2.0); EOS # 0.2 (0.0-0.7); GRAN # 5.5 (1.4-6.5); GRAN % 72.1 % (42.2-75.2); LYMPH # 1.4 (1.2-3.4); LYMPH % 18.7 % (20.0-51.0); MEAN CELL VOLUME 85 fl (80.0-100.0); MEAN CORPUSCULAR HGB CONC 30 g/dl (33.0-37.0); MEAN PLATELET VOLUME 10.1 fl (7.4-10.4); MONO # 0.5 (0.1-0.6); MONO % 6.6 % (1.7-9.3); PLATELET COUNT 171 K/mm3 (130-400); RED BLOOD COUNT 3.66 M/mm3 (4.20-5.60); REDCELL DISTRIBUTION WIDTH-CV 18.6 % (11.5-14.5)
[2018-11-01] MEDS ORDERED: TYLENOL 500MG500 MG PO (07:50)
[2018-11-01 07:52] LABS: PROTHROMBIN TIME 11.2 SECONDS (9.7-12.8)
[2018-11-01] MEDS ORDERED: NORVASC 10MG10 MG PO (07:52)
[2018-11-01 07:53] LABS: HEMATOCRIT 31.2 % (42.0-52.0); HEMOGLOBIN 9.4 g/dl (13.5-18.0); MEAN CORPUSCULAR HEMOGLOBIN 26 pg (27.0-31.0)
[2018-11-01 07:54] LABS: CALCIUM 8.7 mg/dL (8.4-10.2); POTASSIUM 5.4 mmol/L (3.4-5.0)
[2018-11-01] MEDS ORDERED: SENSIPAR60 MG PO (07:54)
[2018-11-01 07:56] LABS: CREATININE, serum 10.46 (0.66-1.25); PARTIAL THROMBOPLASTIN TIME 30.3 SECONDS (26.0-37.0)
--- NOTE | 2018-11-01 09:00 | NUR ---
Pt went down for cardiac cath at this time. IV to LH with IVF. dye lab technician staff took via bed. Will await return.
[2018-11-01 09:28] VITALS: BP 147/53; PULSE 81
--- NOTE | 2018-11-01 09:30 | NUR ---
SEE MERGE DOCUMENTATION FOR MEDICATION ADMINISTRATION TIMES AND INTRA/POST PROCEDURE SEDATION ASSESSMENTS.
--- NOTE | 2018-11-01 10:15 | NUR ---
Back from HC. R femoral access site is soft and nontender, VSS. Will continue to monitor.
[2018-11-01 10:30] VITALS: BP 128/36; PULSE 81; TEMP 98.3
[2018-11-01 10:45] VITALS: BP 129/45; PULSE 79; TEMP 98.3
[2018-11-01] MEDS ORDERED: TOPROL XL 25MG25 MG PO (10:49)
[2018-11-01 11:00] VITALS: BP 112/48; PULSE 81; TEMP 98.3
--- NOTE | 2018-11-01 11:16 | NUR ---
First visit from the recreational leader. No needs right now.
--- NOTE | 2018-11-01 15:46 | NUR ---
SUNIL met with the patient and patient's daughter, Daria, to discuss discharge plan. The patient lives in [place] with his , Lara. He reports independence with ADLs and has a cane, two walkers, and home oxygen from [facility]. The patient's PCP is Dr. Leo Philip and he receives his medications at the [facility]. He reports no difficulties obtaining his meds. The patient's General DPOA is in EMR. The patient does not have a DPOA-HC and he was not interested in completing one at this time. He states his next of kin is his (ph#[phone]). The patient plans to return home with his upon discharge. No additional needs at this time.
--- NOTE | 2018-11-01 16:15 | NUR ---
Pt back after dialysis, taking PO well. R groin site remains CDI, non-tender and soft. Discharge packet reviewed, answered all questions, reviewed f/u appt and script sent to pharmacy. INT d/c'd tip intact. Daughter at bedside to review packet. Pt left wtih all belongings, escorted out with medical staff, daughter to drive home, criteria met.
== END 2018-11-01 16:50 | disposition home or self-care (01) | DRG 286 ==
LOC: MEDICAL 06:48 → COL.CAR 07:00 → EDSTATUS 07:00 → MEDICAL 07:00
PROVIDERS: ADMIT Internal Medicine Cardiovascular Disease
PROC: 5A1D70Z Performance of Urinary Filtration, Intermittent, Less than 6 Hours Per Day (ICD-10-PCS; principal; 2018-11-01)
PROC: B2161ZZ Fluoroscopy of Right and Left Heart using Low Osmolar Contrast (ICD-10-PCS; 2018-11-01)
PROC: B5171ZZ Fluoroscopy of Left Subclavian Vein using Low Osmolar Contrast (ICD-10-PCS; 2018-11-01)
DX: I42.9 Cardiomyopathy, unspecified (principal); N18.6 End stage renal disease; I13.2 Hypertensive heart and chronic kidney disease with heart failure and with stage 5 chronic kidney disease, or end stage renal disease; I50.32 Chronic diastolic (congestive) heart failure; N25.81 Secondary hyperparathyroidism of renal origin; I25.10 Atherosclerotic heart disease of native coronary artery without angina pectoris; I25.41 Coronary artery aneurysm; E11.22 Type 2 diabetes mellitus with diabetic chronic kidney disease; Z99.2 Dependence on renal dialysis; I27.20 Pulmonary hypertension, unspecified; D63.1 Anemia in chronic kidney disease; Z87.891 Personal history of nicotine dependence; E87.5 Hyperkalemia; E78.5 Hyperlipidemia, unspecified; I08.1 Rheumatic disorders of both mitral and tricuspid valves; J44.9 Chronic obstructive pulmonary disease, unspecified; G47.30 Sleep apnea, unspecified; Z86.19 Personal history of other infectious and parasitic diseases; Z99.81 Dependence on supplemental oxygen; H40.9 Unspecified glaucoma; M19.90 Unspecified osteoarthritis, unspecified site; Z79.02 Long term (current) use of antithrombotics/antiplatelets; Z79.82 Long term (current) use of aspirin; Z79.51 Long term (current) use of inhaled steroids
CPT/HCPCS: C1760; C1894; J1644; J2250; J3010; J7030; Q9967

== ENCOUNTER 2019-04-23 18:26 | Inpatient (IN) | payer MEDICARE, OTHER ==
[~2019-04-23] VITALS: Ht 172.7 cm; Wt 76.7 kg
[~2019-04-23 18:26] MED LIST changes: +TOPROL XL 25MG25 MG PO; +TYLENOL 500MG500 MG PO
[2019-04-23 20:45] LABS: BASO % 0.3 % (0.0-2.0); EOS # 0.1 (0.0-0.7); EOS % 0.7 % (0-4.0); GRAN # 5.6 (1.4-6.5); GRAN % 80.8 % (42.2-75.2); LYMPH # 0.7 (1.2-3.4); MEAN CELL VOLUME 86 fl (80.0-100.0); MEAN CORPUSCULAR HGB CONC 32 g/dl (33.0-37.0); MEAN PLATELET VOLUME 11.3 fl (7.4-10.4); MONO # 0.5 (0.1-0.6); MONO % 7.8 % (1.7-9.3); PLATELET COUNT 138 K/mm3 (130-400)
[2019-04-23 20:56] LABS: ALBUMIN 3.9 gm/dL (3.5-5.0); BILIRUBIN,TOTAL 0.7 mg/dL (0.0-1.0); C-REACTIVE PROTEIN 2.1 mg/dL (0.0-0.9); CALCIUM 8.7 mg/dL (8.4-10.2); CREATININE, serum 6.12 (0.66-1.25); POTASSIUM 4.9 mmol/L (3.4-5.0); TOTAL PROTEIN 7.1 gm/dL (6.4-8.2)
[2019-04-23 20:57] LABS: HEMATOCRIT 29.1 % (42.0-52.0); HEMOGLOBIN 9.3 g/dl (13.5-18.0); MEAN CORPUSCULAR HEMOGLOBIN 27 pg (27.0-31.0)
[2019-04-23 21:14] LABS: TROPONIN-I 0.447 ng/mL (0.000-0.035)
--- NOTE | 2019-04-23 23:16 | NUR ---
Patient arrived to medical floor from ER at this time.
[2019-04-23] MEDS ORDERED: NORVASC 10MG10 MG PO (23:24)
--- NOTE | 2019-04-23 23:59 | NUR ---
Patient assessment complete. Alert and oriented x 4, and able to make needs known. Denies having pain and discomfort at this time. IV site to left AC flushed. Given IV Rocephin per orders. Site is without redness, warmth, swelling, and pain. 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 Graft to right arm. Patient had a defibrilator placed on 04/19/19. Dressing to area is CDI. Reports pain to area during cough. Reports some SOB and dyspnea. LS CTA. Respirations even and unlabored. Reports cough is dry with no sputum production. HRR. Telemetry in place. Capillary refill is less than 3 seconds. Non-tenting skin turgor. BSAx4. Abdomen soft and non-tender. 1+ edema bilateral feet. Cracks noted to heels. Given lotion and moisture barrier to apply as needed. Given sandwich box and juice as requested. Voices no furhter questions, needs, or concerns at this time. Continues on oxygen at 2 L/min via NC. Extension tubing placed for more independence. Call light is within reach.
--- NOTE | 2019-04-24 00:09 | NUR ---
Call placed to Dr. Mendiola and notified that patient was on medical floor and med rec was up to date.
[2019-04-24 00:30] VITALS: BP 112/30; BP 95/47; PULSE 50; TEMP 99.2
[2019-04-24 03:38] VITALS: BP 98/44; PULSE 77; TEMP 98.5
--- NOTE | 2019-04-24 06:04 | NUR ---
RVP positive. Droplet precautions in place. Denies having pain and discomfort. Continues on oxygen at 2 L/min via NC. Voices no questions, needs, or concerns at this time. Resting in bed with call light within reach.
--- NOTE | 2019-04-24 06:45 | NUR ---
bedside shift report received from KANDIS Dudley
--- NOTE | 2019-04-24 08:05 | NUR ---
sitting up on side of bed eating breakfast, denies needs at this time
[2019-04-24 08:40] VITALS: BP 111/72; PULSE 48; TEMP 97.7
--- NOTE | 2019-04-24 08:50 | NUR ---
remains up on side of bed, tolerated breakfast well, full assessment completed, see interventions for further info, denies needs at this time
--- NOTE | 2019-04-24 10:00 | NUR ---
to dialysis per WC, patient questions since he had dialysis yesterda, explained to him Dr Mendiola wants him to have it today and they will ensure to get him back on his regular schedule
--- NOTE | 2019-04-24 12:09 | NUR ---
remains in dialysis
--- NOTE | 2019-04-24 14:14 | NUR ---
returned from dialysis per WC, ambulates from and sits on side of bed and is eating lunch
--- NOTE | 2019-04-24 15:00 | NUR ---
appears to be sleeping, in bed on right side with eyes closed, resp quiet and easy
--- NOTE | 2019-04-24 15:06 | NUR ---
SW met with the patient to discuss discharge plan. The patient lives in [place] with his , Lara (ph#[phone]). He reports independence with ADLs and has a cane, two walkers, and is on 2 liters of continuous oxygen from [facility]. The patient's PCP is Dr. Leo Philip and he receives his medications at the [facility]. He reports no difficulties obtaining his meds. The patient's Last Will & Testament is in EMR. He states that he does not have a DPOA-HC completed and he was not interested in completing one at this time. The patient plans to return home with his upon discharge. No additional needs at this time.
--- NOTE | 2019-04-24 16:44 | NUR ---
in bed and appears to continue to sleep
[2019-04-24 17:15] VITALS: BP 101/80; PULSE 80; TEMP 98
--- NOTE | 2019-04-24 18:05 | NUR ---
awake now and sitting up on side of bed, states he didn't sleep well but only dozed at intervals
--- NOTE | 2019-04-24 19:07 | NUR ---
bedside shift report given to KANDIS Dudley and KANDIS Figueroa
[2019-04-24 20:38] VITALS: BP 126/35; PULSE 80; TEMP 99.9
--- NOTE | 2019-04-24 22:26 | NUR ---
PT report received from dayshift nurse at shift change with meet/greet performed. PT is A&Ox4, able to make wants/needs known, denies pain, and presents with no s/s of distress noted. PT watching tv in bed with call light within reach and bedside table with beverages available. PT c/o headache even though he initally denied pain and this teletypewriter operator contacted Dr Mendiola and reveived a verbal order for APAP 500mg 1 tab PO q4H PRN. Pt provided APAP with evening meds during assessment. Will continue to monitor.
[2019-04-25 01:58] VITALS: BP 123/100; PULSE 78; TEMP 98.9
--- NOTE | 2019-04-25 03:58 | NUR ---
PT sitting up in bed with tv on. PT denies pain and presents with no s/s of distress noted. Call light within reach and PT denies wants/needs at this time.
--- NOTE | 2019-04-25 06:29 | NUR ---
PT resting in bed with eyes closed and easily aroused for am meds. PT denies pain, wants/needs, and returns to bed after taking meds. Call light within reach. No s/s of distress noted. Will continue to monitor.
[2019-04-25 07:58] VITALS: BP 98/44; PULSE 85; TEMP 99
--- NOTE | 2019-04-25 10:36 | NUR ---
Pt seems pleasant and compliant. Fistula on R arm has bruit present and thrill palpable. Dressing over pacemaker is clean dry and intact. IV site is WNL and flushes well. I covered his IV and pacemaker site for a shower as requested by patient. Pt on oxygen. No other needs at this time.
[2019-04-25 12:01] VITALS: BP 102/36; PULSE 83; TEMP 98.3
[2019-04-25 14:45] VITALS: BP 96/58; PULSE 86
--- NOTE | 2019-04-25 15:36 | NUR ---
Pt had BP of 102/36. Dr. Torre was notified and he said to have the pt to drink 500cc of water. After the 500cc had been drinken I retook the pt's blood pressure. It read at 98/58. Pt's blood pressures have been consistently in this range and Dr. Torre did not seem concerned. Earlier cardiology had visited and looked at his dressing from his new pacemaker. Cardiology said to leave the steri strips on and that it was "looking good". Pt confirmed understanding of this information.
[2019-04-25 15:50] VITALS: BP 95/51; PULSE 71; TEMP 99.4
--- NOTE | 2019-04-25 16:36 | NUR ---
pt reported cramping right foot pain. I gave him a tylenol extra strength 500mg as per PRN medications. I also provided him with a heat pack. He said the heat pack was starting to help. I will follow up at 1700 to see if he needs additional pharmacological therapy.
[2019-04-25 19:29] VITALS: BP 89/51; PULSE 56; PULSE 85; TEMP 99.2
--- NOTE | 2019-04-25 19:56 | NUR ---
Report received from dayshift nurse and meet/greet performed. Tele notified this life underwriter that PT had abnormal tele. PT assessed and denies chest pain, soa, pressure, palpitations or any s/s of distress. Tele pads checked and placement of Right Arm moved from low chest to right clavicle. Tele contacted this life underwriter about 2 minutes later stating that PT was "throwing P-Waves" and EKG needed to be performed. EKG order placed. Will continue to monitor.
--- NOTE | 2019-04-25 22:30 | NUR ---
Patient complaining of pain/cramping to right foot. Given PRN Tylenol ES 500 mg po as requested for pain.
--- NOTE | 2019-04-25 23:33 | NUR ---
PT has been resting peacefully during the shift, sometimes lying in bed and sometimes sitting up dangling his feet. PT denies pain during the shift and is currently resting peacefully in bed with no s/s of distress noted. Call light within reach. Will continue to monitor. PT denies wants/needs at this time.
[2019-04-26 00:30] VITALS: BP 89/46; PULSE 76; TEMP 98.7
--- NOTE | 2019-04-26 01:20 | NUR ---
PT reported to this ad writer that he was having some chest pressure and difficulty breathing when lying down. PT states that when he does lie down he will have a persistent cough. This ad writer contacted [employer] who states that PT "appears as he has most of the night" and that he has "pvc's". This ad writer contacted Dr Mendiola who states to continue to monitor PT. PT educated on report received from telemetry and the conversation with Dr Mendiola. Further education provided to raise the head of bead to at least 30 degrees and to notify nurse if chest pain develops, pressure increases to where he feels like this nurse is sitting on his chest, or any further negative changes occur with his breathing. PT states understanding. Will continue to monitor.
--- NOTE | 2019-04-26 02:39 | NUR ---
PT reports that he remains unable to lie down in bed due to increased SOA and that his chest pressure is still present but has not become worse. PT sitting up in bed watching tv. Will continue to monitor.
[2019-04-26 04:00] VITALS: BP 90/36; PULSE 54; TEMP 98.4
--- NOTE | 2019-04-26 04:33 | NUR ---
PT sitting up in his recliner watching tv. PT states that he continues to have some left of sternal pressure on his chest that has remained unchanged in quality since first being reported. Call light within reach and PT re-educated to contact nurse if this pressure increases, changes in sharpness or location, or if he begins to have difficulty obtaining a full breath. PT states understanding.
[2019-04-26 08:35] LABS: BASO % 0.2 % (0.0-2.0); EOS # 0.1 (0.0-0.7); EOS % 1.5 % (0-4.0); GRAN % 77.4 % (42.2-75.2); LYMPH # 0.8 (1.2-3.4); LYMPH % 14.6 % (20.0-51.0); MEAN CELL VOLUME 86 fl (80.0-100.0); MEAN CORPUSCULAR HGB CONC 32 g/dl (33.0-37.0); MEAN PLATELET VOLUME 11.4 fl (7.4-10.4); MONO # 0.3 (0.1-0.6); MONO % 5.9 % (1.7-9.3); PLATELET COUNT 123 K/mm3 (130-400); RED BLOOD COUNT 3.46 M/mm3 (4.20-5.60); REDCELL DISTRIBUTION WIDTH-CV 16.6 % (11.5-14.5)
[2019-04-26 08:37] LABS: HEMATOCRIT 29.6 % (42.0-52.0); HEMOGLOBIN 9.5 g/dl (13.5-18.0); MEAN CORPUSCULAR HEMOGLOBIN 27 pg (27.0-31.0)
[2019-04-26 08:40] LABS: CALCIUM 8.6 mg/dL (8.4-10.2); CREATININE, serum 7.21 (0.66-1.25); POTASSIUM 4.7 mmol/L (3.4-5.0)
[2019-04-26 16:51] VITALS: BP 92/47; PULSE 87; TEMP 97.5
--- NOTE | 2019-04-26 18:16 | NUR ---
PT HAS BEEN ON 2L THOUGHOUT THE DAY, SATS HAVE REMAINED ABOVE 90%'S. NO ISSUES OR CONSERNS VOICED THIS AFTERNOON. WAS IN DIALYSIS THIS AM WAS REPORTED THAT 600ML WAS REMOVED. FAMILY HAS BEEN INTO VISIT TODAY.
[2019-04-26 19:52] VITALS: BP 92/46; PULSE 85; TEMP 99.1
--- NOTE | 2019-04-26 20:00 | NUR ---
Patient assessed at this time. Alert and oriented x 4, and able to make needs known. Reported level 5 pain to right foot, described as cramping. Given PRN APAP as requested. IV site to left AC flushed. Site is without redness, warmth, swelling, and pain. Graft to right upper arm with positive bruit and thrill. Steri strips to left chest are CDI. Reports SOB while laying down. Encouraged to elevate head of bed. Reports SOB and dyspnea. LS crackles throughout. Respirations even and unlabored. RT called for neb treatment as requested. Continues on oxygen at 1.5 L/min via NC. Asked if he wanted oxygen increased, and denied. Continues to have moist cough, but unable to produce sputum. Denies chest pain and discomfort. Heart irregular. Telemetry in place: a-fib. Capillary refill less than 3 seconds. Non-tenting skin turgor. BSAx4. Abdomen soft and non-tender. Denies constipation and diarrhea. 1+ edema bilateral feet. Voices no further questions, needs, or concerns at this time. Resting in bed with call light within reach. RT in room.
[2019-04-26 23:38] VITALS: BP 90/43; PULSE 80; TEMP 98.9
[2019-04-27 03:46] VITALS: BP 85/50; PULSE 80; TEMP 98.3
--- NOTE | 2019-04-27 04:59 | NUR ---
Patient denies having any furhter pain or discomfort since receiving PRN APAP at bedtime. Reports that he has not had any chest pain. States he feels as if his breathing has gotten better over night. Voices no questions, needs, or concerns at this time. Resting in bed with call light within reach.
[2019-04-27 07:45] VITALS: BP 93/54; PULSE 86; TEMP 98
[2019-04-27] MEDS ORDERED: MUCUS RELIEF200 MG PO (11:03)
[2019-04-27] MEDS ORDERED: TESSALON P100 MG/CAP PO (11:03)
[2019-04-27] MEDS ORDERED: DOXYCYCLINE HY100 MG PO (11:05)
== END 2019-04-27 14:05 | disposition home or self-care (01) | DRG 193 ==
LOC: COL.ER 18:26 → MEDICAL 22:09
PROVIDERS: Physician Assistant; ADMIT Internal Medicine Nephrology
PROC: 5A1D70Z Performance of Urinary Filtration, Intermittent, Less than 6 Hours Per Day (ICD-10-PCS; principal; 2019-04-24)
DX: J18.9 Pneumonia, unspecified organism (principal); N18.6 End stage renal disease; I21.4 Non-ST elevation (NSTEMI) myocardial infarction; N25.81 Secondary hyperparathyroidism of renal origin; I13.2 Hypertensive heart and chronic kidney disease with heart failure and with stage 5 chronic kidney disease, or end stage renal disease; I50.32 Chronic diastolic (congestive) heart failure; J90 Pleural effusion, not elsewhere classified; E11.22 Type 2 diabetes mellitus with diabetic chronic kidney disease; E78.5 Hyperlipidemia, unspecified; K21.9 Gastro-esophageal reflux disease without esophagitis; M10.9 Gout, unspecified; E11.42 Type 2 diabetes mellitus with diabetic polyneuropathy; E66.9 Obesity, unspecified; I25.10 Atherosclerotic heart disease of native coronary artery without angina pectoris; N28.1 Cyst of kidney, acquired; Z99.2 Dependence on renal dialysis; Z79.02 Long term (current) use of antithrombotics/antiplatelets; Z79.82 Long term (current) use of aspirin; Z79.51 Long term (current) use of inhaled steroids; Z87.891 Personal history of nicotine dependence
CPT/HCPCS: A4216; J0696; J1644; J7030; Q9967

== ENCOUNTER → 2019-06-25 | Day surgery (SDC) | payer MEDICARE, OTHER ==
[~2019-06-25] MED LIST changes: +DOXYCYCLINE HY100 MG PO; +MUCUS RELIEF200 MG PO; +TESSALON P100 MG/CAP PO
== END ==
LOC: SDCO 08:00 → SURG 06-26 07:30 → EDSTATUS 06-26 07:30
DX: N28.89 Other specified disorders of kidney and ureter (principal); R93.422 Abnormal radiologic findings on diagnostic imaging of left kidney; Z53.8 Procedure and treatment not carried out for other reasons

== ENCOUNTER → 2019-07-18 | Outpatient (CLI) | payer MEDICARE, OTHER | LOC: ZCOL.LAB 09:50 | DX: Z03.818 Encounter for observation for suspected exposure to other biological agents ruled out (principal) ==

== ENCOUNTER 2019-12-11 13:13 | Day surgery (SDC) | payer MEDICARE, OTHER ==
[~2019-12-11] VITALS: Ht 172.7 cm; Wt 80.0 kg
[2019-12-11 14:09] VITALS: BP 155/72; PULSE 73; TEMP 98.1
[2019-12-11 15:45] VITALS: BP 140/71; PULSE 64; TEMP 97.5
[2019-12-11 16:00] VITALS: BP 146/75; PULSE 67
[2019-12-11 16:15] VITALS: BP 134/70; PULSE 68
--- NOTE | 2019-12-11 16:54 | NUR ---
1545 TO [facility] [place] [facility] VIA CART. PATIENT AMBULATED TO CHAIR WITH SBA AND WALKER. DAUGHTER IN ROOM. PATIENT AWAKE AND VSS. REPORT RECIEVED FROM KANDIS ZHOU. 1600 PATIENT TAKING SPRITE AND A MUFFIN PO. DENIES COMPLAINT. 1615 D/C INSTRUCTIONS, VERBAL AND WRITTEN GIVEN TO PATIENT WHO VERBALIZED UNDERSTANDING. IV D/C'D. CATHETER TIP REMAINED INTACT. PRESSURE DRESSING OF COTTON BALL AND COBAN APPLIED TO SITE. 1635 PATIENT D/C'D TO POV PER W/C WITH HIS DAUGHTER.
== END 2019-12-11 16:35 | disposition home or self-care (01) ==
LOC: SDCO 13:13
DX: D12.3 Benign neoplasm of transverse colon (principal); K57.30 Diverticulosis of large intestine without perforation or abscess without bleeding; R19.5 Other fecal abnormalities; D50.0 Iron deficiency anemia secondary to blood loss (chronic); K29.30 Chronic superficial gastritis without bleeding; K29.80 Duodenitis without bleeding; C64.2 Malignant neoplasm of left kidney, except renal pelvis; D63.0 Anemia in neoplastic disease; I13.2 Hypertensive heart and chronic kidney disease with heart failure and with stage 5 chronic kidney disease, or end stage renal disease; I50.9 Heart failure, unspecified; N18.6 End stage renal disease; E11.22 Type 2 diabetes mellitus with diabetic chronic kidney disease; E11.42 Type 2 diabetes mellitus with diabetic polyneuropathy; I27.20 Pulmonary hypertension, unspecified; I08.1 Rheumatic disorders of both mitral and tricuspid valves; G47.33 Obstructive sleep apnea (adult) (pediatric); I25.10 Atherosclerotic heart disease of native coronary artery without angina pectoris; J45.909 Unspecified asthma, uncomplicated; J43.9 Emphysema, unspecified; I42.9 Cardiomyopathy, unspecified; K21.9 Gastro-esophageal reflux disease without esophagitis; E78.5 Hyperlipidemia, unspecified; E78.00 Pure hypercholesterolemia, unspecified; R01.1 Cardiac murmur, unspecified; Z99.2 Dependence on renal dialysis; Z87.891 Personal history of nicotine dependence; Z95.810 Presence of automatic (implantable) cardiac defibrillator; Z86.19 Personal history of other infectious and parasitic diseases; Z79.84 Long term (current) use of oral hypoglycemic drugs; Z79.82 Long term (current) use of aspirin; Z79.899 Other long term (current) drug therapy; Z79.02 Long term (current) use of antithrombotics/antiplatelets
CPT/HCPCS: J2704; J7030

== ENCOUNTER 2020-01-05 17:45 | Inpatient (IN) | payer MEDICARE, OTHER ==
[~2020-01-05] VITALS: Ht 172.7 cm; Wt 76.5 kg
[2020-01-05 18:52] LABS: BASO % 0.1 % (0.0-2.0); EOS % 0.5 % (0-4.0); GRAN % 80.1 % (42.2-75.2); LYMPH # 0.9 (1.2-3.4); LYMPH % 11.9 % (20.0-51.0); MEAN CELL VOLUME 99 fl (80.0-100.0); MEAN CORPUSCULAR HGB CONC 31 g/dl (33.0-37.0); MEAN PLATELET VOLUME 9.8 fl (7.4-10.4); MONO # 0.5 (0.1-0.6); MONO % 6.9 % (1.7-9.3); PLATELET COUNT 163 K/mm3 (130-400); RED BLOOD COUNT 1.67 M/mm3 (4.20-5.60); REDCELL DISTRIBUTION WIDTH-CV 17.9 % (11.5-14.5)
[2020-01-05 18:54] LABS: INR 1.1 (0.8-3.0); PROTHROMBIN TIME 12.2 SECONDS (9.7-12.8)
[2020-01-05 18:55] LABS: HEMOGLOBIN 5.1 g/dl (13.5-18.0); MEAN CORPUSCULAR HEMOGLOBIN 31 pg (27.0-31.0)
[2020-01-05 18:57] LABS: HEMATOCRIT 16.5 % (42.0-52.0)
[2020-01-05 18:58] LABS: ALBUMIN 3.1 gm/dL (3.5-5.0); BILIRUBIN,TOTAL 0.4 mg/dL (0.0-1.0); CALCIUM 8.4 mg/dL (8.4-10.2); CREATININE, serum 7.76 (0.66-1.25); POTASSIUM 4.1 mmol/L (3.4-5.0); TOTAL PROTEIN 5.6 gm/dL (6.4-8.2)
[2020-01-05 20:45] VITALS: BP 150/51; PULSE 93; TEMP 98.4
--- NOTE | 2020-01-05 21:00 | NUR ---
Received patient from ED. Patient is alert and oriented. He is for 1 unit of PRBC transfusion tonight. Instructed patient that he is on NPO after midnight in preparation for his surgery tomorrow. He has INT on right forearm and INT on left wrist. He has old fistula on left upper arm and he no longer use that. His functioning fistula was at right upper arm. Placed restriction band on his right arm and signage on the door. Medication reconcilliation and assesment completed. He denies pain. Call light within reach.
--- NOTE | 2020-01-05 21:42 | NUR ---
This nurse called Dr. Mendiola that patient's med reconcillation has been completed already. Asked him if he wants to do repeat hemoglobin and hematocrit after blood transfusion and he said no. He ordered Renal panel and CBC to be drawn during dialysis tomorrow. He asked if surgeon seen the patient already and told him that Dr. Cooper ordered UGI endoscopy tomorrow at 0830H and Dr. Mendiola said that the patient will then have dialysis after his procedure.
--- NOTE | 2020-01-05 21:53 | NUR ---
Patient signed the consent for blood transfusion and surgery monico.
[2020-01-05 22:33] VITALS: BP 134/47; PULSE 85; TEMP 97.9
[2020-01-05 23:00] VITALS: BP 106/49; PULSE 91; TEMP 98.7
--- NOTE | 2020-01-05 23:08 | NUR ---
1 units of PRBC verified with Karina MARQUIS. Vital signs taken before blood transfusion. Explained procedure to the patient. Blood started and will stay on patient's room for 15 minutes.
[2020-01-05 23:23] VITALS: BP 122/50; PULSE 81; TEMP 97.9
[2020-01-05 23:38] VITALS: BP 117/52; PULSE 81; TEMP 98.3
[2020-01-06] VITALS (15 sets, daily range): BP systolic 106–140; BP diastolic 43–72; PULSE 64–85; TEMP 97.8–99.1
--- NOTE | 2020-01-06 00:05 | NUR ---
Patient complains of burning sensation on his IV site while on blood transfusion. He said that Dr. Mendiola saw him at the ER and since he's a hard stick they allowed him to have IV on his right arm as long as it was under the elbow. ER nurse who gave the report to me awhile ago said the same thing that's why they insert G22 on his right forearm. Henry, domestic housekeeper tried to insert an IV and was able to find a vein on his right hand G20. Resumed blood transfusion and patient didn't complain of burning feeling anymore on his new IV site.
--- NOTE | 2020-01-06 02:34 | NUR ---
Blood transfusion done. Post vital signs taken. Patient tolerated the transfusion.
--- NOTE | 2020-01-06 06:29 | NUR ---
Patient didn't have any vomiting or bowel movement tonight. He denies pain. He had an uneventful night. He is still asleep. Call light within reach.
[2020-01-06 10:32] LABS: BASO % 0.2 % (0.0-2.0); EOS # 0.1 (0.0-0.7); EOS % 1.1 % (0-4.0); GRAN % 74.9 % (42.2-75.2); LYMPH # 1.1 (1.2-3.4); LYMPH % 16.5 % (20.0-51.0); MEAN CELL VOLUME 96 fl (80.0-100.0); MEAN CORPUSCULAR HGB CONC 31 g/dl (33.0-37.0); MEAN PLATELET VOLUME 9.7 fl (7.4-10.4); MONO # 0.5 (0.1-0.6); MONO % 6.8 % (1.7-9.3); PLATELET COUNT 166 K/mm3 (130-400); RED BLOOD COUNT 1.66 M/mm3 (4.20-5.60); REDCELL DISTRIBUTION WIDTH-CV 18.6 % (11.5-14.5)
[2020-01-06 10:37] LABS: HEMATOCRIT 15.9 % (42.0-52.0); MEAN CORPUSCULAR HEMOGLOBIN 30 pg (27.0-31.0)
[2020-01-06 10:52] LABS: ALBUMIN 2.8 gm/dL (3.5-5.0); CALCIUM 8.3 mg/dL (8.4-10.2); CREATININE, serum 9.18 (0.66-1.25); PHOSPHOROUS 4.3 mg/dL (2.5-4.5); POTASSIUM 4.5 mmol/L (3.4-5.0)
--- NOTE | 2020-01-06 16:53 | NUR ---
SW attempted to meet with patient for intake, unable to complete due to being in dialysis. SUNIL will continue to follow.
--- NOTE | 2020-01-06 19:04 | NUR ---
Received report from Stacie. Seen patient awake, sitting in bed. PRBC ongoing on his right hand. Patient denies pain. He is afebrile. Call light within reach.
--- NOTE | 2020-01-06 20:30 | NUR ---
Done with 2nd unit of PRBC. Informed patient that there will be repeat lab works at 2200H to check on the level of his hemoglobin and hematocrit.
[2020-01-06 22:41] LABS: HEMATOCRIT 20.5 % (42.0-52.0)
[2020-01-06 22:45] LABS: HEMOGLOBIN 6.5 g/dl (13.5-18.0)
[2020-01-07 03:28] VITALS: BP 118/45; PULSE 81; TEMP 97.9
--- NOTE | 2020-01-07 04:30 | NUR ---
Patient took a shower independently. Provided a new gown but he prefers to use his own clothes. He denies pain. Informed him of his latest hemoglobin level and he said that was good for him.
--- NOTE | 2020-01-07 07:44 | NUR ---
BEDSIDE SHIFT REPORT RECEIVED. PT AOX4. REPORTS STEADY INDEPENDENT AMBULATION FREE OF DIZINESS OR SOB. NO NEEDS AT THIS TIME. AWAITING BREAKFAST. LABS ORDERED TO BE DRAWN IN DIALYSIS
[2020-01-07 08:35] VITALS: BP 136/54; PULSE 91; TEMP 98
[2020-01-07 09:10] LABS: BASO % 0.1 % (0.0-2.0); EOS # 0.1 (0.0-0.7); EOS % 1.1 % (0-4.0); GRAN # 7.1 (1.4-6.5); GRAN % 83.5 % (42.2-75.2); LYMPH # 0.8 (1.2-3.4); LYMPH % 9.7 % (20.0-51.0); MEAN CELL VOLUME 96 fl (80.0-100.0); MEAN CORPUSCULAR HGB CONC 32 g/dl (33.0-37.0); MEAN PLATELET VOLUME 10.2 fl (7.4-10.4); MONO # 0.4 (0.1-0.6); MONO % 5.1 % (1.7-9.3); PLATELET COUNT 162 K/mm3 (130-400); RED BLOOD COUNT 2.33 M/mm3 (4.20-5.60); REDCELL DISTRIBUTION WIDTH-CV 19.2 % (11.5-14.5)
[2020-01-07 09:12] LABS: HEMATOCRIT 22.3 % (42.0-52.0); HEMOGLOBIN 7.1 g/dl (13.5-18.0); MEAN CORPUSCULAR HEMOGLOBIN 30 pg (27.0-31.0)
[2020-01-07 09:22] LABS: ALBUMIN 3.1 gm/dL (3.5-5.0); CALCIUM 8.6 mg/dL (8.4-10.2); CREATININE, serum 7.18 (0.66-1.25); PHOSPHOROUS 3.9 mg/dL (2.5-4.5); POTASSIUM 4.1 mmol/L (3.4-5.0)
--- NOTE | 2020-01-07 10:04 | NUR ---
pt transported to dialysis @ 0820. denies pain. questioned why he was receivign another treatment after yesterday's and dialysis nurse clarified order with phys and pt. 1 assist to standby ambulation. on 2L NC pt sttaes chronic home dose. rt arm restriction in place.
--- NOTE | 2020-01-07 11:15 | NUR ---
PT RETURNED FROM DIALYSIS @115. MORNING MEDS GIVEN. VSS.NO OTHER NEEDS AT THIS TIME
[2020-01-07 11:16] VITALS: BP 116/50; PULSE 84; TEMP 97.9
--- NOTE | 2020-01-07 13:50 | NUR ---
Animal Care Giver met with patient to discuss discharge planning. Patient lives in [place], [place] with his Lara Elder" (ph#[phone]) [address] Philip for primary care. Patient obtains medications from [facility] with no difficulties. Patient has two walkers, a cane, and wears oxygen at night from [facility]. Patient reports independence with ADLS and plans to return home at discharge. Patient does not have Advance Directives, but does have a Last Will and Testament located in EMR. SW contacted ELZA Moreira to order PT/OT for patient. SUNIL will continue to follow.
[2020-01-07 17:45] VITALS: BP 116/64; PULSE 91; TEMP 97.7
--- NOTE | 2020-01-07 18:37 | NUR ---
EOS NOTE: PT WORKED DIALYSIS THIS SHIFT. DENIES PAIN. COOPERATIVE WITH CARE. VERBALIZED WORRY ABOUT HOSPITAL BILL WITH LENGTH OF STAY. REFERRED TO [facility]. WORKED WITH THERAPY.
[2020-01-07 18:58] LABS: EOS # 0.1 (0.0-0.7); EOS % 2.3 % (0-4.0); GRAN # 4.7 (1.4-6.5); GRAN % 77.6 % (42.2-75.2); LYMPH # 0.8 (1.2-3.4); MEAN CELL VOLUME 93 fl (80.0-100.0); MEAN CORPUSCULAR HGB CONC 32 g/dl (33.0-37.0); MEAN PLATELET VOLUME 11.8 fl (7.4-10.4); MONO # 0.4 (0.1-0.6); MONO % 6.6 % (1.7-9.3); PLATELET COUNT 85 K/mm3 (130-400); RED BLOOD COUNT 2.24 M/mm3 (4.20-5.60); REDCELL DISTRIBUTION WIDTH-CV 18.7 % (11.5-14.5)
--- NOTE | 2020-01-07 19:20 | NUR ---
Received report from Lala. Seen patient awake in bed. Call light within reach. He denies pain.
[2020-01-07 19:23] LABS: HEMATOCRIT 20.9 % (42.0-52.0); HEMOGLOBIN 6.7 g/dl (13.5-18.0); MEAN CORPUSCULAR HEMOGLOBIN 30 pg (27.0-31.0)
--- NOTE | 2020-01-07 19:36 | NUR ---
This nurse called Dr. Mendiola to relay hemoglobin result of 6.7. He ordered repeat CBC and Renal panel in the morning.
[2020-01-07 19:51] VITALS: BP 131/58; PULSE 81; TEMP 98.8
--- NOTE | 2020-01-07 20:10 | NUR ---
Informed patient regarding his latest hemoglobin and that he will have another repeat lab works in the morning. He denies pain. Night meds given. Call light within reach.
[2020-01-07 23:31] VITALS: BP 132/55; PULSE 72; TEMP 98.1
[2020-01-08] VITALS (14 sets, daily range): BP systolic 122–134; BP diastolic 39–75; PULSE 75–85; TEMP 97.8–98.9
--- NOTE | 2020-01-08 05:58 | NUR ---
Patient had uneventful night. No complains of pain. Patient slept most of the night.
[2020-01-08 07:20] LABS: EOS # 0.2 (0.0-0.7); EOS % 2.7 % (0-4.0); GRAN # 4.6 (1.4-6.5); GRAN % 76.9 % (42.2-75.2); LYMPH # 0.8 (1.2-3.4); LYMPH % 12.6 % (20.0-51.0); MEAN CELL VOLUME 96 fl (80.0-100.0); MEAN CORPUSCULAR HGB CONC 32 g/dl (33.0-37.0); MEAN PLATELET VOLUME 9.2 fl (7.4-10.4); MONO # 0.4 (0.1-0.6); MONO % 7.1 % (1.7-9.3); PLATELET COUNT 154 K/mm3 (130-400); REDCELL DISTRIBUTION WIDTH-CV 18.8 % (11.5-14.5)
[2020-01-08 07:27] LABS: HEMATOCRIT 20.2 % (42.0-52.0); HEMOGLOBIN 6.4 g/dl (13.5-18.0); MEAN CORPUSCULAR HEMOGLOBIN 30 pg (27.0-31.0)
[2020-01-08 07:37] LABS: ALBUMIN 2.9 gm/dL (3.5-5.0); CALCIUM 8.2 mg/dL (8.4-10.2); CREATININE, serum 6.51 (0.66-1.25); PHOSPHOROUS 5.1 mg/dL (2.5-4.5); POTASSIUM 4.4 mmol/L (3.4-5.0)
--- NOTE | 2020-01-08 11:55 | NUR ---
The patient is to discharge home today, 01/07 with his Aida. SUNIL met with the patient to review the discharge plan. SUNIL discussed physical therapy recommendation of home spouse and if he had any concerns about returning home. SUNIL discussed the need for home health. He declined and stated, "I have everything I need." SUNIL presented the IM form to the patient. The patient verbalized understanding and gave SW permission to sign the form. A copy was provided to the patient and original was placed in the chart. SUNIL contacted Aida to review the discharge plan of returning home. She has no concerns about him doing so and she will pick him up. SUNIL collaborated the above information with the patient's nurse.
--- NOTE | 2020-01-08 16:31 | NUR ---
PATIENT DISCHARGED HOME AT 1450. HE DRESSED HIMSELF INDEPENDENTLY AND GATHERED ITEMS. WAS ASSISTED TO ER ENTRANCE TO PRIVATE VEHICLE VIA WHEELCHAIR.
== END 2020-01-08 14:50 | disposition home or self-care (01) | DRG 377 ==
LOC: COL.ER 17:45 → MEDICAL 19:08
PROVIDERS: Emergency Medicine; Internal Medicine Gastroenterology; ADMIT Internal Medicine Nephrology
PROC: 0D598ZZ Destruction of Duodenum, Via Natural or Artificial Opening Endoscopic (ICD-10-PCS; 2020-01-06)
PROC: 0D568ZZ Destruction of Stomach, Via Natural or Artificial Opening Endoscopic (ICD-10-PCS; 2020-01-06)
PROC: 5A1D70Z Performance of Urinary Filtration, Intermittent, Less than 6 Hours Per Day (ICD-10-PCS; principal; 2020-01-06 08:30)
DX: K31.811 Angiodysplasia of stomach and duodenum with bleeding (principal); N18.6 End stage renal disease; D62 Acute posthemorrhagic anemia; I13.2 Hypertensive heart and chronic kidney disease with heart failure and with stage 5 chronic kidney disease, or end stage renal disease; D63.1 Anemia in chronic kidney disease; E11.22 Type 2 diabetes mellitus with diabetic chronic kidney disease; E78.5 Hyperlipidemia, unspecified; K21.9 Gastro-esophageal reflux disease without esophagitis; M10.9 Gout, unspecified; E11.40 Type 2 diabetes mellitus with diabetic neuropathy, unspecified; I50.9 Heart failure, unspecified; E66.9 Obesity, unspecified; Z87.891 Personal history of nicotine dependence
CPT/HCPCS: C9113; J2704; J2916; J7030; P9016; Q5105

== ENCOUNTER 2020-01-18 07:47 | Emergency (ER) | payer MEDICARE, OTHER ==
[~2020-01-18] VITALS: Ht 172.7 cm; Wt 77.3 kg
[2020-01-18 08:54] LABS: BASO % 0.2 % (0.0-2.0); LYMPH # 0.2 (1.2-3.4); LYMPH % 1.4 % (20.0-51.0); MEAN CELL VOLUME 97 fl (80.0-100.0); MEAN CORPUSCULAR HGB CONC 30 g/dl (33.0-37.0); MEAN PLATELET VOLUME 9.9 fl (7.4-10.4); MONO # 0.5 (0.1-0.6); MONO % 4.1 % (1.7-9.3); PLATELET COUNT 149 K/mm3 (130-400); RED BLOOD COUNT 3.25 M/mm3 (4.20-5.60); REDCELL DISTRIBUTION WIDTH-CV 15.4 % (11.5-14.5)
[2020-01-18 08:58] LABS: HEMATOCRIT 31.4 % (42.0-52.0); HEMOGLOBIN 9.5 g/dl (13.5-18.0); MEAN CORPUSCULAR HEMOGLOBIN 29 pg (27.0-31.0)
[2020-01-18 09:20] LABS: ALBUMIN 3.7 gm/dL (3.5-5.0); BILIRUBIN,TOTAL 0.9 mg/dL (0.0-1.0); C-REACTIVE PROTEIN 0.7 mg/dL (0.0-0.9); CALCIUM 8.6 mg/dL (8.4-10.2); CREATININE, serum 7.67 (0.66-1.25); POTASSIUM 4.3 mmol/L (3.4-5.0); TOTAL PROTEIN 6.9 gm/dL (6.4-8.2)
[2020-01-18] MEDS ORDERED: AMOXICILLIN 8751 TAB PO ×3 (10:20→11:06)
[2020-01-18 11:02] VITALS: BP 101/58; PULSE 86; TEMP 99.5
[2020-01-19] MEDS ORDERED: ZYLOPRIM 300MG300 MG PO (17:24)
[2020-01-19] MEDS ORDERED: NORVASC 5MG5 MG/TAB PO (17:25)
== END 2020-01-18 10:33 | disposition home or self-care (01) ==
LOC: COL.ER 07:47
PROVIDERS: Family Medicine
DX: J18.1 Lobar pneumonia, unspecified organism (principal); I10 Essential (primary) hypertension; N18.6 End stage renal disease; Z20.828 Contact with and (suspected) exposure to other viral communicable diseases; Z99.2 Dependence on renal dialysis
CPT/HCPCS: J0696